=== PATIENT | female | born 1970 | race Caucasian/White ===

== ENCOUNTER 2016-04-10 22:52 | Emergency (ER) | payer MEDICARE, OTHER ==
[2016-04-10 23:05] VITALS: RESP 16; TEMP 97.7
[2016-04-10] MEDS ORDERED: ONDANSETRON 4 MG/2 ML VIAL IVP STA (23:39)
[2016-04-10] MEDS ORDERED: SODIUM CHLORIDE 0.9% 500 ML IV STA (23:39)
[2016-04-10] MEDS ORDERED: KETOROLAC 30 MG/ML 1 ML VIAL IVP STA (23:39)
--- NOTE | 2016-04-10 23:47 | ED ---
Abdominal Pain HPI - General Chief Complaint: Abdominal Pain Stated Complaint: abd pain Time Seen by Provider: 04/10/16 22:55 Source: patient, RN notes reviewed Mode of arrival: ambulatory Limitations: no limitations - History of Present Illness Initial Comments: This patient is a 45-year-old woman who presents with right flank and right lower quadrant pain which is been going on for 2 days. Patient states that it seemed be a little worse yesterday and that over the course of last night she developed some nausea and vomiting. She has had 2 episodes of vomiting. The patient also has had some urinary frequency. MD Complaint: abdominal pain, flank pain -: days(s) Location: RLQ, R flank Radiation: none Migration to: no migration Severity: severe Quality: aching Consistency: constant Improves With: nothing Worsens With: nothing Associated Symptoms: nausea, vomiting - Related Data Home Medications Medication Instructions Recorded Confirmed Ibuprofen [Advil] 400 mg PO Q8HR PRN 04/10/16 04/10/16 QUEtiapine [SEROquel] 50 mg PO HS PRN 04/10/16 04/10/16 oxyCODONE-APAP 10-325MG [Percocet 1 tab PO QID 04/10/16 04/10/16 10-325 mg] Previous Rx's Medication Instructions Recorded Hydrocodone/Acetaminophen [[place] 1 each PO Q6HR PRN #20 tab 04/11/16 5-325] Ondansetron Odt [Zofran ODT] 4 mg PO Q8HR PRN #10 tab 04/11/16 Tamsulosin [Flomax] 0.4 mg PO DAILY #14 cap 04/11/16 Allergies Allergy/AdvReac Type Severity Reaction Status Date / Time codeine Allergy Vomiting Verified 04/10/16 23:11 morphine Allergy Vomiting Verified 04/10/16 23:11 Sulfa (Sulfonamide Allergy WHOLE BODY Verified 04/10/16 23:11 Antibiotics) HURTS gabapentin AdvReac AGGRESSIVE Verified 04/10/16 23:11 pregabalin [From Lyrica] AdvReac FEELS LIKE Verified 04/10/16 23:11 HEAD IS SHAKING Review of Systems ROS Statement: Those systems with pertinent positive or pertinent negative responses have been documented in the HPI. ROS Other: All systems not noted in ROS Statement are negative. Constitutional: Denies: fever, chills, weakness Respiratory: Denies: cough, dyspnea Cardiovascular: Denies: chest pain, palpitations, syncope Gastrointestinal: Reports: abdominal pain, nausea, vomiting. Denies: diarrhea, constipation, melena, hematochezia Genitourinary: Reports: frequency. Denies: dysuria, hematuria, discharge Musculoskeletal: Denies: back pain Skin: Denies: rash Neurological: Denies: headache, weakness, numbness Past Medical History Past Medical History: Fibromyalgia Additional Past Medical History / Comment(s): DJD, ARTHRITIS History of Any Multi-Drug Resistant Organisms: None Reported Past Psychological History: No Psychological Hx Reported Smoking Status: Current every day smoker Past Alcohol Use History: Occasional Past Drug Use History: None Reported General Exam Limitations: no limitations General appearance: alert, in no apparent distress Head exam: Present: atraumatic, normocephalic Eye exam: Present: normal appearance. Absent: scleral icterus, conjunctival injection ENT exam: Present: normal oropharynx Neck exam: Present: normal inspection Respiratory exam: Present: normal lung sounds bilaterally. Absent: respiratory distress, wheezes, rales, rhonchi, stridor Cardiovascular Exam: Present: regular rate, normal rhythm, normal heart sounds. Absent: systolic murmur, diastolic murmur, rubs, gallop GI/Abdominal exam: Present: soft. Absent: distended, tenderness, guarding, rebound Extremities exam: Present: normal inspection, normal capillary refill. Absent: pedal edema, calf tenderness Back exam: Present: normal inspection, CVA tenderness (R). Absent: CVA tenderness (L), muscle spasm, paraspinal tenderness, vertebral tenderness Neurological exam: Present: alert Skin exam: Present: warm, dry, intact, normal color. Absent: rash Course Vital Signs 04/10/16 04/11/16 04/11/16 23:03 00:05 02:01 Temperature 97.7 F Pulse Rate 76 74 78 Respiratory 16 16 16 Rate Blood Pressure 118/69 112/68 124/68 O2 Sat by Pulse 97 96 Oximetry Medical Decision Making - Lab Data Result diagrams: 04/10/16 23:47 04/10/16 23:47 Lab Results 04/10/16 04/10/16 04/10/16 Range/Units 23:47 23:47 23:47 WBC 11.7 H (3.8-10.6) k/uL RBC 4.00 (3.80-5.40) m/uL Hgb 13.0 (11.4-16.0) gm/dL Hct 38.5 (34.0-46.0) % MCV 96.4 (80.0-100.0) fL MCH 32.5 (25.0-35.0) pg MCHC 33.7 (31.0-37.0) g/dL RDW 12.3 (11.5-15.5) % Plt Count 204 (150-450) k/uL Neutrophils % 90 % Lymphocytes % 6 % Monocytes % 3 % Eosinophils % 0 % Basophils % 0 % Neutrophils # 10.6 H (1.3-7.7) k/uL Lymphocytes # 0.7 L (1.0-4.8) k/uL Monocytes # 0.3 (0-1.0) k/uL Eosinophils # 0.0 (0-0.7) k/uL Basophils # 0.0 (0-0.2) k/uL Sodium 136 L (137-145) mmol/L Potassium 4.1 (3.5-5.1) mmol/L Chloride 103 (98-107) mmol/L Carbon Dioxide 25 (22-30) mmol/L Anion Gap 8 mmol/L BUN 13 (7-17) mg/dL Creatinine 0.83 (0.52-1.04) mg/dL Est GFR (MDRD) Af Amer >60 (>60 ml/min/1.73 sqM) Est GFR (MDRD) Non-Af >60 (>60 ml/min/1.73 sqM) Glucose 111 H (74-99) mg/dL Calcium 9.3 (8.4-10.2) mg/dL Total Bilirubin 0.5 (0.2-1.3) mg/dL AST 14 (14-36) U/L ALT 23 (9-52) U/L Alkaline Phosphatase 74 (38-126) U/L Total Protein 6.6 (6.3-8.2) g/dL Albumin 3.8 (3.5-5.0) g/dL Amylase <30 L (30-110) U/L Lipase 31 (23-300) U/L Urine Color Urine Appearance (Clear) Urine pH (5.0-8.0) Ur Specific [place] (1.001-1.035) Urine Protein (Negative) Urine Glucose (UA) (Negative) Urine Ketones (Negative) Urine Blood (Negative) Urine Nitrate (Negative) Urine Bilirubin (Negative) Urine Urobilinogen (<2.0) mg/dL Ur Leukocyte Esterase (Negative) Urine RBC (0-5) /hpf Urine WBC (0-5) /hpf Ur Squamous Epith Cells (0-4) /hpf Urine Bacteria (None) /hpf Hyaline Casts (0-2) /lpf Urine Mucus (None) /hpf Urine HCG, Qual Not Detected (Not Detectd) 04/10/16 Range/Units 23:47 WBC (3.8-10.6) k/uL RBC (3.80-5.40) m/uL Hgb (11.4-16.0) gm/dL Hct (34.0-46.0) % MCV (80.0-100.0) fL MCH (25.0-35.0) pg MCHC (31.0-37.0) g/dL RDW (11.5-15.5) % Plt Count (150-450) k/uL Neutrophils % % Lymphocytes % % Monocytes % % Eosinophils % % Basophils % % Neutrophils # (1.3-7.7) k/uL Lymphocytes # (1.0-4.8) k/uL Monocytes # (0-1.0) k/uL Eosinophils # (0-0.7) k/uL Basophils # (0-0.2) k/uL Sodium (137-145) mmol/L Potassium (3.5-5.1) mmol/L Chloride (98-107) mmol/L Carbon Dioxide (22-30) mmol/L Anion Gap mmol/L BUN (7-17) mg/dL Creatinine (0.52-1.04) mg/dL Est GFR (MDRD) Af Amer (>60 ml/min/1.73 sqM) Est GFR (MDRD) Non-Af (>60 ml/min/1.73 sqM) Glucose (74-99) mg/dL Calcium (8.4-10.2) mg/dL Total Bilirubin (0.2-1.3) mg/dL AST (14-36) U/L ALT (9-52) U/L Alkaline Phosphatase (38-126) U/L Total Protein (6.3-8.2) g/dL Albumin (3.5-5.0) g/dL Amylase (30-110) U/L Lipase (23-300) U/L Urine Color Yellow Urine Appearance Cloudy H (Clear) Urine pH 6.0 (5.0-8.0) Ur Specific [place] 1.023 (1.001-1.035) Urine Protein 1+ H (Negative) Urine Glucose (UA) Negative (Negative) Urine Ketones Trace H (Negative) Urine Blood Moderate H (Negative) Urine Nitrate Negative (Negative) Urine Bilirubin Negative (Negative) Urine Urobilinogen 3.0 (<2.0) mg/dL Ur Leukocyte Esterase Small H (Negative) Urine RBC 90 H (0-5) /hpf Urine WBC 5 (0-5) /hpf Ur Squamous Epith Cells 6 H (0-4) /hpf Urine Bacteria Moderate H (None) /hpf Hyaline Casts 4 H (0-2) /lpf Urine Mucus Moderate H (None) /hpf Urine HCG, Qual (Not Detectd) Disposition Clinical Impression: Calculus of kidney Disposition: HOME SELF-CARE Condition: Good Instructions: Kidney Stones (ED) Prescriptions: Hydrocodone/Acetaminophen [[place] 5-325] 1 each PO Q6HR PRN #20 tab PRN Reason: Pain Ondansetron Odt [Zofran ODT] 4 mg PO Q8HR PRN #10 tab PRN Reason: Nausea Tamsulosin [Flomax] 0.4 mg PO DAILY #14 cap Referrals: None,Stated [Primary Care Provider] - 1-2 days Max Stone MD [STAFF PHYSICIAN] - 1-2 days Amanda Kidd MD [REFERRING] - 1-2 days
[2016-04-11 00:08] LABS: Appearance,Urine Cloudy (Clear); Bacteria,Urine Moderate /hpf; Bilirubin,Urine Negative (Negative); Glucose,Urine (UA) Negative (Negative); Ketones,Urine Trace (Negative); Leukocyte Esterase,Urine Small (Negative); Mucus,Urine Moderate /hpf; Nitrite,Urine Negative (Negative); Particle Count 10337; Protein,Urine 1+ (Negative); RBC,Urine 90 /hpf (0-5); Specific Gravity,Urine 1.023 (1.001-1.035); Squamous Epithelial Cell,Urine 6 /hpf (0-4); UA Billing (MACRO vs. MICRO) MICRO; WBC,Urine 5 /hpf (0-5)
[2016-04-11 00:09] LABS: Basophils % (A) 0 %; CH 32.9; CHCM 34.3; Eosinophils % (A) 0 %; HCT 38.5 % (34.0-46.0); HDW 2.11; Luc # (Auto) 0.04; Luc % (Auto) 0; Lymphocytes # (A) 0.7 k/uL (1.0-4.8); Lymphocytes % (A) 6 %; MCH 32.5 pg (25.0-35.0); MCHC 33.7 g/dL (31.0-37.0); MCV 96.4 fL (80.0-100.0); Mean Platelet Volume 7.2; Monocytes # (A) 0.3 k/uL (0-1.0); Monocytes % (A) 3 %; Neutrophils # (A) 10.6 k/uL (1.3-7.7); Neutrophils % (A) 90 %; RDW 12.3 % (11.5-15.5); WBC 11.7 k/uL (3.8-10.6); WBC (Perox) 12.18
[2016-04-11 00:13] LABS: ALT 23 U/L (9-52); AST 14 U/L (14-36); Alkaline Phosphatase 74 U/L (38-126); Amylase <30 U/L (30-110); Anion Gap 8 mmol/L; Blood Urea Nitrogen 13 mg/dL (7-17); Calcium 9.3 mg/dL (8.4-10.2); Carbon Dioxide 25 mmol/L (22-30); Chloride 103 mmol/L (98-107); Glucose 111 mg/dL (74-99); Non-African American GFR(MDRD) >60 (>60 ml/min/1.73 sqM); Potassium 4.1 mmol/L (3.5-5.1); Sodium 136 mmol/L (137-145); Total Bilirubin 0.5 mg/dL (0.2-1.3); Total Protein 6.6 g/dL (6.3-8.2)
--- NOTE | 2016-04-11 00:17 | CT ---
EXAMINATION TYPE: CT abdomen pelvis wo con DATE OF EXAM: 04/11/2016 12:05 AM COMPARISON: NONE HISTORY: back and abd pain, History of DDD, and ovarian cyst, renal stone protocol CT DLP: 921 mGycm Automated exposure control for dose reduction was used. TECHNIQUE: Helical acquisition of images was performed from the lung bases through the pelvis. FINDINGS: Lung bases are clear. There is no pleural effusion. Heart size is normal. Liver spleen pancreas appear normal. Bile ducts are not dilated. There are clips from cholecystectomy . There is no adrenal mass. There are a few calculi in the upper pole of the left kidney to measure u p to 1 cm. There is mild right-sided hydronephrosis. There is mild right hydroureter. There are multi ple calcifications in the pelvis floor on the right side and probably a stone in the distal right ure ter at the ureterovesical junction. Bladder distends smoothly. There is no sign of a pelvic mass. Kid neys have normal size. There is no retroperitoneal adenopathy. I see no intestinal wall thickening. T here are no dilated loops. There are multiple coils in the pelvis on the right side. Appendix appears normal. I see no bony destructive process. IMPRESSION: NONOBSTRUCTING LEFT RENAL CALCULI. THERE IS RIGHT-SIDED HYDRONEPHROSIS AND HYDROURETER AND PROBABLY A 5 MM STONE AT THE RIGHT URETEROVES ICAL JUNCTION. NORMAL APPENDIX.
[2016-04-11] MEDS ORDERED: TAMSULOSIN 0.4 MG CAP.ER.24H PO STA (01:26)
[2016-04-11] MEDS ORDERED: HYDROmorphone 1 MG/ML 1 ML SYRINGE IVP STA (01:38)
[2016-04-11 02:02] VITALS: BP 124/68; PULSE 78
== END 2016-04-11 02:02 | disposition home or self-care (01) ==
LOC: EC 22:52
DX: N13.2 Hydronephrosis with renal and ureteral calculous obstruction (principal); M79.7 Fibromyalgia; Z79.891 Long term (current) use of opiate analgesic; F17.200 Nicotine dependence, unspecified, uncomplicated; Z88.5 Allergy status to narcotic agent; Z88.2 Allergy status to sulfonamides; Z88.8 Allergy status to other drugs, medicaments and biological substances
CPT/HCPCS: 36415; 80053; 82150; 83690; 85025; 81001; 81025; 87086; 74176; 99285; 96374; 96375; 96361; J2405; J1885; J1170

== ENCOUNTER 2016-05-26 17:13 | Emergency (ER) | payer MEDICARE, OTHER ==
[2016-05-26] MEDS ORDERED: KETOROLAC 30 MG/ML 1 ML VIAL IVP STA (17:35)
[2016-05-26] MEDS ORDERED: MORPHINE SULFATE 4 MG/ML SYRINGE IVP STA (17:35)
[2016-05-26] MEDS ORDERED: SODIUM CHLORIDE 0.9% 1,000 ML IV ONE (17:35)
[2016-05-26] MEDS ORDERED: RX INFO: IV CONTRAST WAS GIVEN 1 EACH MISC MISCELLANE PRN (17:35)
[2016-05-26] MEDS ORDERED: ONDANSETRON 4 MG/2 ML VIAL IVP STA (17:35)
[2016-05-26 18:05] LABS: Appearance,Urine Cloudy (Clear); Bacteria,Urine Occasional /hpf; Bilirubin,Urine 1+ (Negative); Glucose,Urine (UA) Negative (Negative); Ketones,Urine 2+ (Negative); Leukocyte Esterase,Urine Negative (Negative); Mucus,Urine Many /hpf; Nitrite,Urine Negative (Negative); Particle Count 21064; Protein,Urine 1+ (Negative); RBC,Urine 3 /hpf (0-5); Specific Gravity,Urine 1.031 (1.001-1.035); Squamous Epithelial Cell,Urine 3 /hpf (0-4); UA Billing (MACRO vs. MICRO) MICRO; WBC,Urine 1 /hpf (0-5)
[2016-05-26 18:13] LABS: Basophils % (A) 0 %; CH 32.4; CHCM 34.2; Eosinophils # (A) 0.1 k/uL (0-0.7); Eosinophils % (A) 1 %; HCT 42.3 % (34.0-46.0); HGB 14.3 gm/dL (11.4-16.0); Luc # (Auto) 0.13; Luc % (Auto) 1; Lymphocytes # (A) 1.5 k/uL (1.0-4.8); Lymphocytes % (A) 12 %; MCH 32.2 pg (25.0-35.0); MCHC 33.9 g/dL (31.0-37.0); Mean Platelet Volume 7.2; Monocytes # (A) 0.5 k/uL (0-1.0); Monocytes % (A) 4 %; Neutrophils # (A) 9.8 k/uL (1.3-7.7); Neutrophils % (A) 81 %; RBC 4.45 m/uL (3.80-5.40); RDW 12.3 % (11.5-15.5); WBC 12.1 k/uL (3.8-10.6); WBC (Perox) 12.17
[2016-05-26 18:23] LABS: HCG,Qualitative Serum Not Detected
[2016-05-26 18:25] LABS: ALT 16 U/L (9-52); AST 13 U/L (14-36); Alkaline Phosphatase 89 U/L (38-126); Anion Gap 12 mmol/L; Blood Urea Nitrogen 11 mg/dL (7-17); Calcium 9.4 mg/dL (8.4-10.2); Carbon Dioxide 25 mmol/L (22-30); Chloride 103 mmol/L (98-107); Glucose 92 mg/dL (74-99); Non-African American GFR(MDRD) >60 (>60 ml/min/1.73 sqM); Potassium 3.6 mmol/L (3.5-5.1); Sodium 140 mmol/L (137-145); Total Bilirubin 1.1 mg/dL (0.2-1.3); Total Protein 7.1 g/dL (6.3-8.2)
--- NOTE | 2016-05-26 19:15 | ED ---
General Adult HPI - General Chief complaint: Abdominal Pain Stated complaint: abd pain Time Seen by Provider: 05/26/16 17:24 Source: patient, EMS Mode of arrival: EMS Limitations: no limitations - History of Present Illness Initial comments: 45-year-old female with past medical history of kidney stones and/or vasculitis presented for evaluation of left lower quadrant abdominal pain that started over the last couple days. She states that she's had 2 weeks of constipation and hasn't passed a single bowel movement in this time. She states that she has no back pain or tenderness that is similar to the Rogelio stones and this feels like a bout of acute diverticulitis. She is unable to get into her primary care physician for further evaluation and was more concerned about this bout as she usually has diarrhea with her symptoms. There is some associated nausea but she denies any fevers chills chest pain shortness of breath. She further denies any dysuria, vaginal bleeding/discharge. - Related Data Home Medications Medication Instructions Recorded Confirmed oxyCODONE-APAP 10-325MG [Percocet 1 tab PO QID 04/10/16 05/26/16 10-325 mg] Albuterol Inhaler [Ventolin Hfa 1 - 2 puff INHALATION RT-QID PRN 05/26/16 Inhaler] Cetirizine HCl [Zyrtec] 10 mg PO DAILY 05/26/16 05/26/16 Fluticasone Nasal [place] [Flonase 1 - 2 spr EA NOSTRIL DAILY PRN 05/26/16 Nasal [place]] clonazePAM [KlonoPIN] 1 mg PO BID 05/26/16 05/26/16 Previous Rx's Medication Instructions Recorded Ondansetron Odt [Zofran ODT] 4 mg PO Q8HR PRN #10 tab 04/11/16 Ciprofloxacin HCl [Cipro] 500 mg PO Q12HR #20 tablet 05/26/16 Ibuprofen [Motrin] 800 mg PO Q8HR PRN #20 tab 05/26/16 Polyethylene Glycol 3350 [Miralax] 17 gm PO DAILY #527 gm 05/26/16 metroNIDAZOLE [Flagyl] 500 mg PO Q8HR #30 tab 05/26/16 Allergies Allergy/AdvReac Type Severity Reaction Status Date / Time codeine Allergy Vomiting Verified 05/26/16 17:48 morphine Allergy Vomiting Verified 05/26/16 17:48 Sulfa (Sulfonamide Allergy WHOLE BODY Verified 05/26/16 17:48 Antibiotics) HURTS gabapentin AdvReac AGGRESSIVE Verified 05/26/16 17:48 pregabalin [From Lyrica] AdvReac FEELS LIKE Verified 05/26/16 17:48 HEAD IS SHAKING Review of Systems ROS Statement: Those systems with pertinent positive or pertinent negative responses have been documented in the HPI. ROS Other: All systems not noted in ROS Statement are negative. Constitutional: Denies: fever, chills Eyes: Denies: eye pain, eye discharge ENT: Denies: ear pain, throat pain Respiratory: Denies: cough, dyspnea Cardiovascular: Denies: chest pain, palpitations Endocrine: Denies: fatigue, polydipsia, polyuria Gastrointestinal: Reports: abdominal pain, nausea, vomiting, constipation. Denies: diarrhea Genitourinary: Denies: urgency, dysuria Musculoskeletal: Denies: back pain, joint swelling Skin: Denies: rash, lesions Neurological: Denies: headache, weakness Psychiatric: Denies: anxiety, depression Past Medical History Past Medical History: Fibromyalgia Additional Past Medical History / Comment(s): DJD, ARTHRITIS History of Any Multi-Drug Resistant Organisms: None Reported Past Surgical History: Back Surgery, Hernia Repair, Tonsillectomy Additional Past Surgical History / Comment(s): carpel tunnel Past Psychological History: No Psychological Hx Reported Smoking Status: Current every day smoker Past Alcohol Use History: Occasional Past Drug Use History: Marijuana General Exam Limitations: no limitations General appearance: alert, in distress Head exam: Present: atraumatic, normocephalic, normal inspection Eye exam: Present: normal appearance, PERRL, EOMI. Absent: scleral icterus, conjunctival injection, periorbital swelling ENT exam: Present: normal exam, mucous membranes moist Neck exam: Present: normal inspection. Absent: tenderness, meningismus, lymphadenopathy Respiratory exam: Present: normal lung sounds bilaterally. Absent: respiratory distress, wheezes, rales, rhonchi, stridor Cardiovascular Exam: Present: regular rate, normal rhythm, normal heart sounds. Absent: systolic murmur, diastolic murmur, rubs, gallop, clicks GI/Abdominal exam: Present: soft, tenderness, normal bowel sounds. Absent: distended, guarding, rebound, rigid, diminished bowel sounds Rectal exam: Present: deferred Extremities exam: Present: normal inspection, full ROM Back exam: Present: normal inspection, full ROM Neurological exam: Present: alert, oriented X3, CN II-XII intact, normal gait. Absent: altered Psychiatric exam: Present: normal affect, normal mood Skin exam: Present: warm, dry, intact Course Vital Signs 05/26/16 17:17 Temperature 98.0 F Pulse Rate 96 Respiratory 18 Rate Blood Pressure 133/77 O2 Sat by Pulse 99 Oximetry EKG Findings - EKG Comments: EKG Findings:: Normal sinus rhythm with ventricular rate of 80, KHOI 128, QRS 86 , QTC 449. Medical Decision Making - Medical Decision Making 45-year-old female with past medical history of kidney stones and diverticulitis presenting for evaluation of left lower quadrant abdominal pain without radiation that is similar previous episodes of diverticulitis. She states only change in her symptoms from previous is that she is constipated for the last 2 weeks. On physical examination she does look mildly distressed and has tenderness to palpation in the left lower quadrant. Bowel sounds are present throughout all quadrants. Concern for acute diverticulitis versus constipation versus bowel traction. We'll obtain CT abdomen, labs, urine, and provide IV fluids, pain control, and Zofran. Labs revealed a mild leukocytosis but otherwise there were no significant abnormalities. CT abdomen with IV contrast: There is mild wall thickening in the lower descending colon and sigmoid colon that could relate to mild colitis. No acute process. No evidence of renal obstruction although there are nonobstructive calculus in the upper pole of the left kidney. There is clearing of the obstructing calculus and hydronephrosis on the right side compared to old exam. Patient was reevaluated and found sleeping in bed. Patient was woken up and she said she had marked improvement in her symptoms. She is informed that she would be discharged with instructions to follow-up with her primary care physician as well as prescriptions for pain control, Zofran control, and MiraLAX to produce stool. She was advised to follow-up with her primary care physician but to return to this facility if her symptoms should worsen or persist. The patient acknowledged an understanding of this information and agreed with this plan of care. - Lab Data Result diagrams: 05/26/16 17:55 05/26/16 17:55 Lab Results 05/26/16 05/26/16 05/26/16 Range/Units 17:40 17:55 17:55 WBC 12.1 H (3.8-10.6) k/uL RBC 4.45 (3.80-5.40) m/uL Hgb 14.3 (11.4-16.0) gm/dL Hct 42.3 (34.0-46.0) % MCV 95.0 (80.0-100.0) fL MCH 32.2 (25.0-35.0) pg MCHC 33.9 (31.0-37.0) g/dL RDW 12.3 (11.5-15.5) % Plt Count 273 (150-450) k/uL Neutrophils % 81 % Lymphocytes % 12 % Monocytes % 4 % Eosinophils % 1 % Basophils % 0 % Neutrophils # 9.8 H (1.3-7.7) k/uL Lymphocytes # 1.5 (1.0-4.8) k/uL Monocytes # 0.5 (0-1.0) k/uL Eosinophils # 0.1 (0-0.7) k/uL Basophils # 0.0 (0-0.2) k/uL Sodium 140 (137-145) mmol/L Potassium 3.6 (3.5-5.1) mmol/L Chloride 103 (98-107) mmol/L Carbon Dioxide 25 (22-30) mmol/L Anion Gap 12 mmol/L BUN 11 (7-17) mg/dL Creatinine 0.75 (0.52-1.04) mg/dL Est GFR (MDRD) Af Amer >60 (>60 ml/min/1.73 sqM) Est GFR (MDRD) Non-Af >60 (>60 ml/min/1.73 sqM) Glucose 92 (74-99) mg/dL Plasma Lactic Acid Mehrdad (0.7-2.0) mmol/L Calcium 9.4 (8.4-10.2) mg/dL Total Bilirubin 1.1 (0.2-1.3) mg/dL AST 13 L (14-36) U/L ALT 16 (9-52) U/L Alkaline Phosphatase 89 (38-126) U/L Total Protein 7.1 (6.3-8.2) g/dL Albumin 4.0 (3.5-5.0) g/dL Lipase 46 (23-300) U/L HCG, Qual Not Detected Urine Color Dark Brown Urine Appearance Cloudy H (Clear) Urine pH 6.0 (5.0-8.0) Ur Specific [place] 1.031 (1.001-1.035) Urine Protein 1+ H (Negative) Urine Glucose (UA) Negative (Negative) Urine Ketones 2+ H (Negative) Urine Blood Small H (Negative) Urine Nitrite Negative (Negative) Urine Bilirubin 1+ H (Negative) Urine Urobilinogen 6.0 (<2.0) mg/dL Ur Leukocyte Esterase Negative (Negative) Urine RBC 3 (0-5) /hpf Urine WBC 1 (0-5) /hpf Ur Squamous Epith Cells 3 (0-4) /hpf Urine Bacteria Occasional H (None) /hpf Urine Mucus Many H (None) /hpf 05/26/16 Range/Units 17:55 WBC (3.8-10.6) k/uL RBC (3.80-5.40) m/uL Hgb (11.4-16.0) gm/dL Hct (34.0-46.0) % MCV (80.0-100.0) fL MCH (25.0-35.0) pg MCHC (31.0-37.0) g/dL RDW (11.5-15.5) % Plt Count (150-450) k/uL Neutrophils % % Lymphocytes % % Monocytes % % Eosinophils % % Basophils % % Neutrophils # (1.3-7.7) k/uL Lymphocytes # (1.0-4.8) k/uL Monocytes # (0-1.0) k/uL Eosinophils # (0-0.7) k/uL Basophils # (0-0.2) k/uL Sodium (137-145) mmol/L Potassium (3.5-5.1) mmol/L Chloride (98-107) mmol/L Carbon Dioxide (22-30) mmol/L Anion Gap mmol/L BUN (7-17) mg/dL Creatinine (0.52-1.04) mg/dL Est GFR (MDRD) Af Amer (>60 ml/min/1.73 sqM) Est GFR (MDRD) Non-Af (>60 ml/min/1.73 sqM) Glucose (74-99) mg/dL Plasma Lactic Acid Mehrdad 1.0 (0.7-2.0) mmol/L Calcium (8.4-10.2) mg/dL Total Bilirubin (0.2-1.3) mg/dL AST (14-36) U/L ALT (9-52) U/L Alkaline Phosphatase (38-126) U/L Total Protein (6.3-8.2) g/dL Albumin (3.5-5.0) g/dL Lipase (23-300) U/L HCG, Qual Urine Color Urine Appearance (Clear) Urine pH (5.0-8.0) Ur Specific [place] (1.001-1.035) Urine Protein (Negative) Urine Glucose (UA) (Negative) Urine Ketones (Negative) Urine Blood (Negative) Urine Nitrite (Negative) Urine Bilirubin (Negative) Urine Urobilinogen (<2.0) mg/dL Ur Leukocyte Esterase (Negative) Urine RBC (0-5) /hpf Urine WBC (0-5) /hpf Ur Squamous Epith Cells (0-4) /hpf Urine Bacteria (None) /hpf Urine Mucus (None) /hpf Disposition Clinical Impression: Colitis, acute, Nausea and vomiting Disposition: HOME SELF-CARE Condition: Stable Instructions: Diverticulitis (ED), Colitis (ED) Additional Instructions: Please use medication as discussed. Please follow up with family doctor if symptoms have not improved over the next two days. Please return to the emergency room if your symptoms increase or worsen or for any other concerns. Prescriptions: Ciprofloxacin HCl [Cipro] 500 mg PO Q12HR #20 tablet Ibuprofen [Motrin] 800 mg PO Q8HR PRN #20 tab PRN Reason: Analgesia Polyethylene Glycol 3350 [Miralax] 17 gm PO DAILY #527 gm metroNIDAZOLE [Flagyl] 500 mg PO Q8HR #30 tab Referrals: Brendan Ledezma MD [Primary Care Provider] - 1-2 days Time of Disposition: 19:28
--- NOTE | 2016-05-26 19:18 | CT ---
EXAMINATION TYPE: CT abdomen pelvis w con DATE OF EXAM: 05/26/2016 6:52 PM COMPARISON: 04/10/2016 HISTORY: Patient complains of generalized abdominal pain, nausea, vomiting, constipation, and diarrhe a x2 weeks. CT DLP: 434 mGycm Automated exposure control for dose reduction was used. TECHNIQUE: Helical acquisition of images was performed from the lung bases through the pelvis. CONTRAST: Performed without Oral Contrast and with IV Contrast, patient injected with 100 mL of Omnipaque 300. FINDINGS: Lung bases are clear. There is no pleural effusion. Heart size is normal. Liver spleen pancreas appear normal. There are clips from cholecystectomy. Bile ducts are not dilated . There is no adrenal mass. There is a 2 cm calcification in the upper pole left kidney. There is no hydronephrosis. There is no retroperitoneal adenopathy. There is no ascites. There are some hypertrophic changes in the sigmoid colon. There is no free air. There is no ascites. Bladder is almost empty. There is no pelvic mass. There are multiple coils appar ently from hernia surgery on the right side. Appendix is not seen. There is no sign of appendicitis. Bony structures are intact. IMPRESSION: THERE IS MILD WALL THICKENING IN THE LOWER DESCENDING COLON AND SIGMOID COLON THAT COULD RELATE TO ND LD COLITIS. NO AB PROCESS. NO EVIDENCE OF RENAL OBSTRUCTION. NONOBSTRUCTING CALCULUS IN THE UPPER HEMANT E LEFT KIDNEY. THERE IS CLEARING OF THE OBSTRUCTING CALCULUS AND HYDRONEPHROSIS ON THE RIGHT SIDE COM PARED TO OLD EXAM. Changes in the right colon appear new compared to last exam.
[2016-05-26] MEDS ORDERED: ONDANSETRON 4 MG ODT STARTER PACK 2 TAB BTL PO STA (19:25)
[2016-05-26] MEDS ORDERED: HYDROmorphone 1 MG/ML 1 ML SYRINGE IVP STA (19:34)
[2016-05-26 19:52] VITALS: BP 104/49; PULSE 78; RESP 16; TEMP 97.7
== END 2016-05-26 19:52 | disposition home or self-care (01) ==
LOC: EC 17:13
DX: K52.9 Noninfective gastroenteritis and colitis, unspecified (principal); R11.2 Nausea with vomiting, unspecified; M79.7 Fibromyalgia; M19.90 Unspecified osteoarthritis, unspecified site; F17.200 Nicotine dependence, unspecified, uncomplicated; Z79.899 Other long term (current) drug therapy; Z88.5 Allergy status to narcotic agent; Z88.2 Allergy status to sulfonamides; Z88.8 Allergy status to other drugs, medicaments and biological substances
CPT/HCPCS: 36415; 93005; 80053; 83605; 83690; 85025; 81001; 84703; 74177; 99285; 96374; 96375 ×4; 96376 ×2; 96361 ×2; J2405; J1885; J1170; Q9967; S0119

== ENCOUNTER 2016-06-01 10:00 | Inpatient (IN) | payer MEDICARE, OTHER ==
[2016-06-01] MEDS ORDERED: NALOXONE 0.4 MG/ML 1 ML VIAL IV PRN (10:49)
--- NOTE | 2016-06-01 10:54 | ED ---
Abdominal Pain HPI - General Source: patient, RN notes reviewed Mode of arrival: ambulatory Limitations: no limitations <Tank Roger - Last Filed: 06/01/16 10:51> <Smith Leonard - Last Filed: 06/01/16 11:44> - General Chief Complaint: Abdominal Pain Stated Complaint: constipation Time Seen by Provider: 06/01/16 10:20 - History of Present Illness Initial Comments: 45-year-old female presents emergency department for abdominal pain constipation. Patient states she was seeing another day diagnosed with constipation was given some medications. Patient states that she's had minimal output. Patient did follow-up with Dr. Santo who saw her on Saturday. She was advised to come back to emergency department or contact her if symptoms worsen. Patient states she is here for admission. She has generalized abdominal pain. Patient states she has been on pain medication for several years. Patient states that she was supposed come to the ER for an was. Patient denies fever, chills. Patient offers no other complaints. (Tank Roger) - Related Data Home Medications Medication Instructions Recorded Confirmed oxyCODONE-APAP 10-325MG [Percocet 1 tab PO QID 04/10/16 06/01/16 10-325 mg] Albuterol Inhaler [Ventolin Hfa 1 - 2 puff INHALATION RT-QID PRN 05/26/16 Inhaler] Cetirizine HCl [Zyrtec] 10 mg PO DAILY 05/26/16 06/01/16 Fluticasone Nasal [place] [Flonase 1 - 2 spr EA NOSTRIL DAILY PRN 05/26/16 Nasal [place]] clonazePAM [KlonoPIN] 1 mg PO HS 05/26/16 06/01/16 Previous Rx's Medication Instructions Recorded Ciprofloxacin HCl [Cipro] 500 mg PO Q12HR #20 tablet 05/26/16 metroNIDAZOLE [Flagyl] 500 mg PO Q8HR #30 tab 05/26/16 Allergies Allergy/AdvReac Type Severity Reaction Status Date / Time codeine Allergy Vomiting Verified 06/01/16 10:57 morphine Allergy Vomiting Verified 06/01/16 10:57 Sulfa (Sulfonamide Allergy WHOLE BODY Verified 06/01/16 10:57 Antibiotics) HURTS gabapentin AdvReac AGGRESSIVE Verified 06/01/16 10:57 pregabalin [From Lyrica] AdvReac FEELS LIKE Verified 06/01/16 10:57 HEAD IS SHAKING Review of Systems ROS Other: All systems not noted in ROS Statement are negative. <Tank Roger - Last Filed: 06/01/16 10:51> ROS Other: All systems not noted in ROS Statement are negative. <Smith Leonard - Last Filed: 06/01/16 11:44> ROS Statement: Those systems with pertinent positive or pertinent negative responses have been documented in the HPI. Past Medical History Past Medical History: Fibromyalgia Additional Past Medical History / Comment(s): DJD, ARTHRITIS History of Any Multi-Drug Resistant Organisms: None Reported Past Surgical History: Back Surgery, Hernia Repair, Tonsillectomy Additional Past Surgical History / Comment(s): carpel tunnel Past Psychological History: No Psychological Hx Reported Smoking Status: Current every day smoker Past Alcohol Use History: Occasional Past Drug Use History: Marijuana <Tank Roger - Last Filed: 06/01/16 10:51> General Exam Limitations: no limitations General appearance: alert, in no apparent distress Head exam: Present: atraumatic, normocephalic, normal inspection Respiratory exam: Present: normal lung sounds bilaterally. Absent: respiratory distress, wheezes, rales, rhonchi, stridor Cardiovascular Exam: Present: regular rate, normal rhythm, normal heart sounds. Absent: systolic murmur, diastolic murmur, rubs, gallop, clicks GI/Abdominal exam: Present: soft, tenderness (Generalized mild), normal bowel sounds. Absent: distended, guarding, rebound, rigid Back exam: Absent: CVA tenderness (R), CVA tenderness (L) <Tank Roger - Last Filed: 06/01/16 10:51> Course <Tank Roger - Last Filed: 06/01/16 10:51> <Smith Leonard - Last Filed: 06/01/16 11:44> Vital Signs 06/01/16 06/01/16 10:09 11:24 Temperature 97.0 F L 98.0 F Pulse Rate 70 70 Respiratory 16 18 Rate Blood Pressure 110/59 92/54 O2 Sat by Pulse 98 100 Oximetry - Reevaluation(s) Reevaluation #1: 06/01/16 11:[address] Santo who did just see this patient and requests admission for observation. (Smith Leonard) Medical Decision Making <Tank Roger - Last Filed: 06/01/16 10:51> <Smith Leonard - Last Filed: 06/01/16 11:44> - Medical Decision Making I discuss case with Dr. Contreras. Patient will be admitted for IV fluids, enemas. (Tank Roger) Disposition <Tank Roger - Last Filed: 06/01/16 10:51> <Smith Leonard - Last Filed: 06/01/16 11:44> Clinical Impression: Abdominal pain, Constipation Disposition: ADMITTED IP TO THIS HOSP Condition: Stable
[2016-06-01] MEDS: SODIUM CHLORIDE 0.9% 1,000 ML IV SCH ×2 (11:23→22:16)
[2016-06-01] MEDS ORDERED: LACTULOSE 20 GM/30 ML CUP PO ONE (13:18)
[2016-06-01] MEDS ORDERED: SENNOSIDES 8.6 MG TAB PO PRN (13:19)
[2016-06-01] MEDS ORDERED: POLYETHYLENE GLYCOL 3350 17 GM POWD.PACK PO SCH (13:30)
[2016-06-01] MEDS: FAMOTIDINE 20 MG TAB PO SCH (14:42)
[2016-06-01] MEDS: oxyCODONE-APAP 10-325MG 1 EACH TAB PO SCH ×2 (14:45→22:14)
--- NOTE | 2016-06-01 15:18 | P.GSHP ---
History of Present Illness H&P Date: 06/01/16 45-year-old female patient being seen for abdominal pain suspect due to constipation. Patient was seen in the emergency room on the the patient was being evaluated for constipation. Patient reportedly seen Dr. Price on Saturday this week for eval of constipation. Patient stated that she was told things didn't get better she was to come to the emergency room to be seen. Patient states she has not had a normal bowel movement has generalized abdominal pain. Patient states that she did give herself fleets enema did try using [id number] products for constipation. Patient states she feels like she has not emptied out her bowel and had a satisfactory bowel movement there's been no blood in the stool patient states she's had small stools as a result of giving herself an enema "I feel frustrated and agitated because I don't really know why all this is happening". Did note the patient is on Cipro and Flagyl when questioning the patient states she was started on those in the emergency room was not told why she's taking them. Patient states she's been taking pain medication for several years and has not had a problem with constipation in the past. Patient takes oxycodone 14 times a day states has taken oxycodone for years for lower back pain patient is not certain when she's had a colonoscopy done Patient's past surgical history hernia repair tonsillectomy and back surgery and cholecystectomy Patient did have a CAT scan of the abdomen pelvis with contrast this was done on May 26 it did show mild wall thickening of the lower descending colon and sigmoid could relate to mild colitis no evidence of renal calculi - Review of Systems Comment: Essentially unremarkable except as mentioned in the present illness Past Medical History Past Medical History: Cancer, Fibromyalgia, Osteoarthritis (OA) Additional Past Medical History / Comment(s): cancerous polyps with removal, diverticular dx, cervical/uterine cancer, DJD, ARTHRITIS. History of Any Multi-Drug Resistant Organisms: None Reported Past Surgical History: Back Surgery, Hernia Repair, Hysterectomy, Orthopedic Surgery, Tonsillectomy Additional Past Surgical History / Comment(s): R carpel tunnel release, cervical sx, L/R inguinal hernia repairs, colonoscopy with cancerous polyps removed. Past Anesthesia/Blood Transfusion Reactions: Postoperative Nausea & Vomiting ( PONV) Additional Past Anesthesia/Blood Transfusion Reaction / Comment(s): Pt states she has PONV and she has to get all the pre meds for that including a scop patch. Past Psychological History: No Psychological Hx Reported Additional Psychological History / Comment(s): Pt resides alone. She is independent. She drives. Smoking Status: Current every day smoker Past Alcohol Use History: Occasional Additional Past Alcohol Use History / Comment(s): Pt states she started smoking at age 9 yrs. she is 1/2 ppd smoker. Past Drug Use History: Marijuana Additional Drug Use History / Comment(s): Pt states she is an occasional marijuana smoker. - Past Family History Father Additional Family Medical History / Comment(s): Father at the age of 19 yrs from a MVA Mother Family Medical History: Cancer, Hypertension Additional Family Medical History / Comment(s): Mother had cervical/uterine cancer and colon cancer. She also had Hep C. Medications and Allergies Home Medications Medication Instructions Recorded Confirmed Type oxyCODONE-APAP 10-325MG [Percocet 1 tab PO QID 04/10/16 06/01/16 History 10-325 mg] Albuterol Inhaler [Ventolin Hfa 1 - 2 puff INHALATION RT-QID PRN 05/26/16 History Inhaler] Cetirizine HCl [Zyrtec] 10 mg PO DAILY 05/26/16 06/01/16 History Fluticasone Nasal [place] [Flonase 1 - 2 spr EA NOSTRIL DAILY PRN 05/26/16 History Nasal [place]] clonazePAM [KlonoPIN] 1 mg PO HS 05/26/16 06/01/16 History Allergies Allergy/AdvReac Type Severity Reaction Status Date / Time codeine Allergy Vomiting Verified 06/01/16 10:57 morphine Allergy Vomiting Verified 06/01/16 10:57 Sulfa (Sulfonamide Allergy WHOLE BODY Verified 06/01/16 10:57 Antibiotics) HURTS gabapentin AdvReac AGGRESSIVE Verified 06/01/16 10:57 pregabalin [From Lyrica] AdvReac FEELS LIKE Verified 06/01/16 10:57 HEAD IS SHAKING Surgical - Exam Vital Signs Temp Pulse Resp BP Pulse Ox 97.0 F L 70 16 110/59 98 06/01/16 10:09 06/01/16 10:09 06/01/16 10:09 06/01/16 10:09 06/01/16 10:09 GENERAL APPEARANCE: 45-year-old female patient is alert, oriented, in no acute distress. VITAL SIGNS: Reviewed HEENT: Head is normocephalic and atraumatic. Pupils are equal and reactive. The nares are patent. Oropharynx is clear without lesions. NECK: Supple without lymphadenopathy. Traches midline. HEART: S1, S2. Regular rate and rhythm. LUNGS: No crackles or wheezes are heard. ABDOMEN: Soft, flat nontender, nondistended with good bowel sounds. No peritoneal signs. No palpable organomegaly or masses. No facial grimacing with palpitation to the abdominal wall no guarding bowel tones present states is able to tolerate a diet EXTREMITIES: Normal skin color and turgor. No cyanosis, rash, ulceration, clubbing or edema. Radial pedal pulses are 2/4 bilaterally. NEUROLOGICAL: No focal deficits. Strength and sensation are grossly intact. Skin multiple skin tattoos Assessment and Plan Plan: Impression Present on admission abdominal pain suspect due to constipation Chronic constipation suspect due to chronic opiate use CAT scan done on May 26 mild wall thickening in the lower descending colon and sigmoid colon pelvic mass could relate to mild colitis Current every day smoker Plan IV hydration as ordered Present health clear Bowel stimulant program Restart meds as appropriate Further recommendations pending Possible discharge in the next 24 hours The above dictated assessment and findings were discussed with dr Price. Impression and the plan of care have been dictated as directed. Maritza Ng nurse practitioner acting as a scribe for Dee.
--- NOTE | 2016-06-01 20:29 | XR ---
EXAMINATION TYPE: XR KUB DATE OF EXAM: 06/01/2016 7:55 PM COMPARISON: CT May 26, 2016 HISTORY: Pain TECHNIQUE: 2 upright views FINDINGS: The visualized lung bases and pleural spaces are negative. There is no pneumoperitoneum. No pneumatosis. The bowel is not dilated but there are innumerable gas fluid levels, particularly in the right upper and lower quadrants. A small volume of gas is seen with in the colon. The pattern suggests partial small bowel obstruction, mild-plus in degree. Cholecystect darby clips are noted. The skeletal structures and soft tissues are unremarkable as seen. IMPRESSION: FINDINGS SUGGEST MILD-PLUS PARTIAL SMALL BOWEL OBSTRUCTION.
[2016-06-01 20:30] LABS: Basophils # (A) 0.1 k/uL (0-0.2); Basophils % (A) 1 %; CH 32.3; CHCM 33.7; Eosinophils # (A) 0.2 k/uL (0-0.7); Eosinophils % (A) 3 %; HDW 2.38; HGB 13.7 gm/dL (11.4-16.0); Luc # (Auto) 0.16; Luc % (Auto) 2; Lymphocytes # (A) 2.3 k/uL (1.0-4.8); Lymphocytes % (A) 32 %; MCH 32.1 pg (25.0-35.0); MCHC 33.5 g/dL (31.0-37.0); Mean Platelet Volume 7.5; Monocytes # (A) 0.4 k/uL (0-1.0); Monocytes % (A) 6 %; Neutrophils # (A) 4.1 k/uL (1.3-7.7); Neutrophils % (A) 56 %; RBC 4.27 m/uL (3.80-5.40); RDW 12.1 % (11.5-15.5); WBC 7.3 k/uL (3.8-10.6); WBC (Perox) 7.46
[2016-06-01 20:45] LABS: ALT 20 U/L (9-52); AST 18 U/L (14-36); Alkaline Phosphatase 77 U/L (38-126); Amylase 48 U/L (30-110); Anion Gap 11 mmol/L; Blood Urea Nitrogen 7 mg/dL (7-17); Calcium 9.9 mg/dL (8.4-10.2); Carbon Dioxide 27 mmol/L (22-30); Chloride 105 mmol/L (98-107); Glucose 83 mg/dL (74-99); Magnesium 1.9 mg/dL (1.6-2.3); Non-African American GFR(MDRD) >60 (>60 ml/min/1.73 sqM); Potassium 4.2 mmol/L (3.5-5.1); Sodium 143 mmol/L (137-145); Total Bilirubin 0.5 mg/dL (0.2-1.3); Total Protein 7.1 g/dL (6.3-8.2)
[2016-06-01] MEDS ORDERED: clonazePAM 1 MG TAB PO SCH (21:00)
[2016-06-02] MEDS ORDERED: ONDANSETRON 4 MG/2 ML VIAL IVP PRN (00:29)
[2016-06-02] MEDS ORDERED: METOCLOPRAMIDE 5 MG/ML 2 ML VIAL IVP PRN (00:29)
[2016-06-02] MEDS ORDERED: HYDROmorphone 1 MG/ML 1 ML SYRINGE IVP PRN (00:29)
[2016-06-02] MEDS: oxyCODONE-APAP 10-325MG 1 EACH TAB PO SCH (00:37)
[2016-06-02] MEDS: FAMOTIDINE 20 MG TAB PO SCH (00:38)
--- NOTE | 2016-06-02 00:39 | P.PN ---
Subjective Principal diagnosis: Abdominal pain The patient comes in with over a 1 week history of persistent abdominal pain. She had a CT of the abdomen and pelvis 1 week ago demonstrating colitis. She was treated with ciprofloxacin and Flagyl. She also had moderate stool burden. She reports chronic diarrhea for the last several days. She also reports troubles tolerating food. She had been placed on laxatives now with some results of bowel movement however now she reports decreased passage of flatus. She has is completed an abdominal x-ray. She reports hunger. Objective - Vital Signs Vital signs: Vital Signs Temp 97.9 F 06/01/16 19:39 Pulse 69 06/01/16 20:00 Resp 18 06/01/16 20:00 BP 113/80 06/01/16 19:39 Pulse Ox 100 06/01/16 19:39 Intake & Output 06/01/16 06/01/16 06/02/16 06:59 18:59 06:59 Weight 63.6 kg Other: Voiding Method Toilet Toilet - Exam GENERAL: Well developed and in no acute distress. Pleasant. HEENT: No sclera icterus. Extraocular movements grossly intact. Moist buccal mucosa. Head is atraumatic, normocephalic. Hears conversational speech. No nasal drainage. NECK: Supple without lymphadenopathy. No JV distention. CHEST: Non-labored respirations and equal bilateral excursions. CARDIOVASCULAR: Regular rate and rhythm. Palpable 2+ radial pulses. ABDOMEN: Soft, mild distention. Tender along the bilateral lower abdomen. No guarding. MUSCULOSKELETAL: No clubbing, cyanosis or edema. NEUROLOGIC: No focal or lateralizing signs. PSYCH: Appropriate affect. Alert and oriented to person, place and time. - Labs CBC & Chem 7: 06/01/16 20:16 06/01/16 20:16 - Imaging and Cardiology Abdominal x-ray: report reviewed (Multiple air-fluid levels were tender 5 without gas along the rectum consistent with bowel obstruction.), image reviewed Assessment and Plan (1) Small bowel obstruction Status: Acute (2) Diverticulitis large intestine Status: Chronic (3) Chronic pain syndrome Status: Chronic (4) Chronic back pain Status: Chronic (5) Constipation Status: Chronic Plan: 1. Upon review of her abdominal x-ray, she has mechanical small bowel obstruction. 2. Medical and surgical options reviewed in detail including placement of nasogastric tube, completely nothing by mouth status, and surgical intervention. 3. She has elected for surgical intervention given the chronicity of her abdominal pain. 4. Nothing by mouth status at this time. 5. She has requested laparoscopic technique however open technique was also discussed in detail as she has previous history of lower abdominal surgery. 6. Inpatient hospitalization anticipated over 2 nights. 7. DVT prophylaxis. 8. Will obtain full chemistries.
[2016-06-02 06:57] LABS: Basophils % (A) 1 %; CH 32.4; CHCM 34.2; Eosinophils # (A) 0.2 k/uL (0-0.7); Eosinophils % (A) 3 %; HGB 11.2 gm/dL (11.4-16.0); Luc # (Auto) 0.11; Luc % (Auto) 2; Lymphocytes # (A) 1.6 k/uL (1.0-4.8); Lymphocytes % (A) 33 %; MCH 31.5 pg (25.0-35.0); MCV 95.2 fL (80.0-100.0); Mean Platelet Volume 7.6; Monocytes # (A) 0.3 k/uL (0-1.0); Monocytes % (A) 7 %; Neutrophils # (A) 2.6 k/uL (1.3-7.7); Neutrophils % (A) 54 %; RBC 3.57 m/uL (3.80-5.40); RDW 12.2 % (11.5-15.5); WBC 4.9 k/uL (3.8-10.6); WBC (Perox) 5.54
[2016-06-02 07:12] LABS: ALT 23 U/L (9-52); AST 14 U/L (14-36); Alkaline Phosphatase 58 U/L (38-126); Amylase 34 U/L (30-110); Anion Gap 6 mmol/L; Blood Urea Nitrogen 6 mg/dL (7-17); Calcium 8.9 mg/dL (8.4-10.2); Carbon Dioxide 25 mmol/L (22-30); Chloride 111 mmol/L (98-107); Glucose 76 mg/dL (74-99); Magnesium 1.7 mg/dL (1.6-2.3); Non-African American GFR(MDRD) >60 (>60 ml/min/1.73 sqM); Potassium 3.6 mmol/L (3.5-5.1); Sodium 142 mmol/L (137-145); Total Bilirubin 0.3 mg/dL (0.2-1.3); Total Protein 5.3 g/dL (6.3-8.2)
[2016-06-02] MEDS ORDERED: HEPARIN SODIUM,PORCINE 5,000 UNIT/ML 1 ML VIAL SQ SCH (08:00)
[2016-06-02] MEDS: SODIUM CHLORIDE 0.9% 1,000 ML IV SCH (08:38)
[2016-06-02] MEDS ORDERED: PANTOPRAZOLE 40 MG/10 ML VIAL IV SCH (09:00)
[2016-06-02] MEDS ORDERED: LORATADINE 10 MG TAB PO SCH (09:00)
--- NOTE | 2016-06-02 11:24 | XR ---
EXAMINATION TYPE: XR abdomen 2V DATE OF EXAM ORDERED: 06/02/2016 11:18 AM HISTORY: bowel obstruction. COMPARISON: Previous study dated 06/01/2016. FINDINGS: There has been a previous cholecystectomy. There has been a previous anterior abdominal wa ll hernia repair. There are calcifications projecting over the left upper quadrant. These may relate to the kidneys. There is been a reduction in the number of air-fluid levels present. There is no bowel dilatation. Th ere is some gas within the colon. IMPRESSION: IMPROVING SMALL BOWEL OBSTRUCTION.
[2016-06-02 12:32] VITALS: BP 110/74; PULSE 76; RESP 16; TEMP 97.9
[2016-06-02 13:08] VITALS: BMI 21.9
--- NOTE | 2016-06-02 16:10 | P.PN ---
Subjective Principal diagnosis: Abdominal pain The patient is a 45-year-old female who reports over a one-week history of intermittent diarrhea as well as abdominal pain. She was admitted yesterday where abdominal films were consistent with bowel obstruction. She reported no passage of flatus. Prior to that, she was given multiple laxatives whereby she complained of diarrhea without any formed stool. I had a careful discussion with her last night regarding conservative management with a nasogastric tube decompression versus surgical intervention. She had elected for surgical intervention. This morning, she reports now passing flatus including improvement of her abdominal pain. She reports an appetite. Objective - Vital Signs Vital signs: Vital Signs Temp 97.9 F 06/02/16 12:30 Pulse 76 06/02/16 12:30 Resp 16 06/02/16 12:30 BP 110/74 06/02/16 12:30 Pulse Ox 97 06/02/16 12:30 Intake & Output 06/01/16 06/02/16 06/02/16 18:59 06:59 18:59 Intake Total 1200 Output Total 3 3 Balance 1197 -3 Weight 63.6 kg Intake: Intake, IV Titration 1200 Amount Sodium Chloride 0.9% 1, 1200 000 ml @ 100 mls/hr IV . Q10H [facility] Rx#:[id number] Output: Stool 3 3 Other: Voiding Method Toilet # Voids 1 # Bowel Movements 1 - Exam GENERAL: Well developed and in no acute distress. Pleasant. HEENT: No sclera icterus. Extraocular movements grossly intact. Moist buccal mucosa. Head is atraumatic, normocephalic. Hears conversational speech. No nasal drainage. NECK: Supple without lymphadenopathy. No JV distention. CHEST: Non-labored respirations and equal bilateral excursions. CARDIOVASCULAR: Regular rate and rhythm. Palpable 2+ radial pulses. ABDOMEN: Soft, resolved distention. No peritonitis. Moderate decrease of abdominal pain. MUSCULOSKELETAL: No clubbing, cyanosis or edema. NEUROLOGIC: No focal or lateralizing signs. PSYCH: Appropriate affect. Alert and oriented to person, place and time. - Labs CBC & Chem 7: 06/02/16 06:20 06/02/16 06:20 Labs: Abnormal Lab Results - Last 24 Hours (Table) 06/02/16 06/02/16 Range/Units 06:20 06:20 RBC 3.57 L (3.80-5.40) m/uL Hgb 11.2 L (11.4-16.0) gm/dL Chloride 111 H (98-107) mmol/L BUN 6 L (7-17) mg/dL Total Protein 5.3 L (6.3-8.2) g/dL Albumin 2.9 L (3.5-5.0) g/dL - Imaging and Cardiology Abdominal x-ray: report reviewed, image reviewed (Resolution of bowel obstruction) Assessment and Plan (1) Small bowel obstruction Status: Acute (2) Diverticulitis large intestine Status: Chronic (3) Chronic pain syndrome Status: Chronic (4) Chronic back pain Status: Chronic (5) Constipation Status: Chronic Plan: 1. Repeat abdominal film was obtained demonstrating resolution of her bowel obstruction. As a result, her surgery this morning has been canceled. 2. She has been started on soft diet. Should she tolerate diet then discharge home. 3. She will closely follow-up in the office as outpatient.
--- NOTE | 2016-06-02 16:13 | P.DS ---
Providers Date of admission: 06/01/16 21:08 Expected date of discharge: 06/02/16 Attending physician: Meli Price Primary care physician: Brendan Ledezma - Discharge Diagnosis(es) (1) Small bowel obstruction Status: Acute (2) Diverticulitis large intestine Status: Chronic (3) Chronic pain syndrome Status: Chronic (4) Chronic back pain Status: Chronic (5) Constipation Status: Chronic Hospital Course: The patient is a 45-year-old female with prior history of over a weeklong generalized abdominal pain including constipation and recent diagnosis of small bowel obstruction. Nothing by mouth status including conservative management was performed. This morning, she reports starting of passage of flatus. As result, surgical intervention was deferred. She was started on diet. She reported resolution of her abdominal pain and tolerating soft food. Prior to discharge, she was stable. Discharge instructions including follow-up in the office was advised. Pertinent Studies: Abdominal films obtained for review and resolution of bowel obstruction Procedures: None Patient Condition at Discharge: Stable Plan - Discharge Summary Discharge Medication List oxyCODONE-APAP 10-325MG [Percocet 10-325 mg] 1 tab PO QID 04/10/16 [History] Albuterol Inhaler [Ventolin Hfa Inhaler] 1 - 2 puff INHALATION RT-QID PRN [History] Cetirizine HCl [Zyrtec] 10 mg PO DAILY 05/26/16 [History] Ciprofloxacin HCl [Cipro] 500 mg PO Q12HR #20 tablet 05/26/16 [Rx] Fluticasone Nasal [place] [Flonase Nasal [place]] 1 - 2 spr EA NOSTRIL DAILY PRN [History] clonazePAM [KlonoPIN] 1 mg PO HS 05/26/16 [History] metroNIDAZOLE [Flagyl] 500 mg PO Q8HR #30 tab 05/26/16 [Rx] Follow up Appointment(s)/Referral(s): Meli Price MD [STAFF PHYSICIAN] - 06/12/16 Brendan Ledezma MD [Primary Care Provider] - 1-2 days Patient Instructions/Handouts: Bowel Obstruction (DC) Activity/Diet/Wound Care/Special Instructions: As tolerated Discharge Disposition: HOME SELF-CARE
== END 2016-06-02 13:55 | disposition home or self-care (01) | DRG 389 ==
LOC: EC 10:00 → 3OBS 10:50 → OBSVTOIN 21:08 → 3SUR 06-02 11:58
PROVIDERS: ADMIT Surgery Plastic and Reconstructive Surgery; ATTEND Surgery Plastic and Reconstructive Surgery
DX: K56.60 Unspecified intestinal obstruction (principal); K57.32 Diverticulitis of large intestine without perforation or abscess without bleeding; G89.4 Chronic pain syndrome; M54.5 Low back pain; M19.91 Primary osteoarthritis, unspecified site; K59.03 Drug induced constipation; T40.2X5A Adverse effect of other opioids, initial encounter; F12.90 Cannabis use, unspecified, uncomplicated; M79.7 Fibromyalgia; K52.9 Noninfective gastroenteritis and colitis, unspecified; F17.200 Nicotine dependence, unspecified, uncomplicated; Z85.42 Personal history of malignant neoplasm of other parts of uterus; Z79.891 Long term (current) use of opiate analgesic; Y92.009 Unspecified place in unspecified non-institutional (private) residence as the place of occurrence of the external cause
CPT/HCPCS: 74000; 74020; 80053; 81025; 82150; 83690; 83735; 85025; 99285

== ENCOUNTER 2016-07-11 07:49 | Day surgery (SDC) | payer MEDICARE, OTHER ==
[2016-07-09 10:34] VITALS: BMI 23.5
[~2016-07-11 07:49] MED LIST: LACTATED RINGERS 1,000 ML IV SCH; LIDOCAINE 1% 20 ML VIAL (10MG/ML) FOR IV START INTRADERMA PRN
--- NOTE | 2016-07-11 07:54 | P.GSHP ---
History of Present Illness H&P Date: 07/11/16 CHIEF COMPLAINT: GERD and colon screen HISTORY OF PRESENT ILLNESS: The patient is a 45-year-old female who presents reports gastroesophageal reflux disease and need for colon screen for high-risk colon polyps. She has a personal history of high-risk polyps. Her mother had stage III colon cancer at a young age. Upper and lower endoscopy were offered for further evaluation and management. PAST MEDICAL HISTORY: Please see list. PAST SURGICAL HISTORY: Please see list. MEDICATIONS: Please see list. ALLERGIES: Please see list. SOCIAL HISTORY: No illicit drug use FAMILY HISTORY: No reports of Crohn disease or ulcerative colitis. REVIEW OF ORGAN SYSTEMS: CONSTITUTIONAL: No reports of fevers or chills. GI: Denies any blood in stools or constipation. PHYSICAL EXAM: VITAL SIGNS: Stable GENERAL: Well-developed pleasant in no acute distress. HEENT: No scleral icterus. Extraocular movements grossly intact. Moist buccal mucosa. NECK: Supple without lymphadenopathy. CHEST: Unlabored respirations. Equal bilateral excursions. CARDIOVASCULAR: Regular rate and rhythm. Distal 2+ pulses. ABDOMEN: Soft, nondistended. MUSCULOSKELETAL: No clubbing, cyanosis, or edema. ASSESSMENT: 1. Gastroesophageal reflux disease 2. Colon screen. 3. Personal history of high-risk colon polyps. 4. Family history of high-risk colon cancer. PLAN: 1. Recommend proceeding with an upper and lower endoscopy Past Medical History Past Medical History: Asthma, Cancer, COPD, Fibromyalgia, GERD/Reflux, Osteoarthritis (OA) Additional Past Medical History / Comment(s): pre-cancerous polyps with removal , diverticulitis, colitis, cervical/uterine cancer, degenerative disk disease, carpal tunnel, migraines, hypotensive, hiatal hernia, Ox at night 2.5 L, hypoglycemia, anemia, kidney stones History of Any Multi-Drug Resistant Organisms: None Reported Past Surgical History: Back Surgery, Cholecystectomy, Hernia Repair, Hysterectomy, Orthopedic Surgery, Tonsillectomy Additional Past Surgical History / Comment(s): R carpel tunnel release, cervical fusion, colonoscopy with cancerous polyps removed. Past Anesthesia/Blood Transfusion Reactions: Motion Sickness, Postoperative Nausea & Vomiting (PONV) Additional Past Anesthesia/Blood Transfusion Reaction / Comment(s): severe PONV- Past Psychological History: Anxiety Additional Psychological History / Comment(s): . Smoking Status: Current every day smoker Past Alcohol Use History: Occasional Additional Past Alcohol Use History / Comment(s): Pt states she started smoking at age 9 yrs. 1/2 ppd smoker. Past Drug Use History: Marijuana Additional Drug Use History / Comment(s): Pt states she is an occasional marijuana smoker. - Past Family History Father Additional Family Medical History / Comment(s): Father at the age of 19 yrs from a MVA Mother Family Medical History: Cancer Additional Family Medical History / Comment(s): . Medications and Allergies Home Medications Medication Instructions Recorded Confirmed Type oxyCODONE-APAP 10-325MG [Percocet 1 tab PO QID 04/10/16 07/09/16 History 10-325 mg] Albuterol Inhaler [Ventolin Hfa 1 - 2 puff INHALATION QID PRN 05/26/16 07/09/16 History Inhaler] Cetirizine HCl [Zyrtec] 10 mg PO DAILY 05/26/16 07/09/16 History Fluticasone Nasal [place] [Flonase 2 spr EA NOSTRIL DAILY PRN 05/26/16 07/09/16 History Nasal [place]] clonazePAM [KlonoPIN] 1 mg PO HS 05/26/16 07/09/16 History Ascorbic Acid [Vitamin C] 250 mg PO DAILY 07/09/16 07/09/16 History Cholecalciferol [Vitamin D3] 1,000 unit PO DAILY 07/09/16 07/09/16 History Multivitamins, Thera [Multivitamin 1 tab PO DAILY 07/09/16 07/09/16 History (formulary)] Allergies Allergy/AdvReac Type Severity Reaction Status Date / Time Sulfa (Sulfonamide Allergy Severe WHOLE BODY Verified 07/09/16 10:20 Antibiotics) HURTS codeine Allergy Vomiting Verified 06/01/16 10:57 morphine Allergy Vomiting Verified 06/01/16 10:57 gabapentin AdvReac AGGRESSIVE Verified 06/01/16 10:57 pregabalin [From Lyrica] AdvReac FEELS LIKE Verified 06/01/16 10:57 HEAD IS SHAKING
[2016-07-11 08:20] VITALS: RESP 18; TEMP 97.9
[2016-07-11] MEDS ORDERED: LIDOCAINE 1% INJ 10MG/ML (20 ML MDV) ONE (08:24)
[2016-07-11] MEDS ORDERED: PROPOFOL 10 MG/ML 20 ML VIAL IV ONE (08:24)
[2016-07-11] MEDS ORDERED: SCOPOLAMINE 1.5MG/72HR PATCH TRANSDERM ONE (08:25)
[2016-07-11 08:27] LABS: Glucose,Whole Blood 87 mg/dL (75-99)
--- NOTE | 2016-07-11 08:39 | P.PCN ---
Date of Procedure: 07/11/16 Description of Procedure: PREOPERATIVE DIAGNOSIS: Gastroesophageal reflux disease. Epigastric abdominal pain. POSTOPERATIVE DIAGNOSIS: Gastroesophageal reflux disease. Epigastric abdominal pain. Chronic gastritis. Diaphragmatic hiatal hernia. OPERATION: Esophagogastroduodenoscopy with biopsies along antrum. SURGEON: Meli Price MD ANESTHESIA: MAC. INDICATIONS: The patient is a 45-year-old female who presents with a history of epigastric abdominal pain and gastroesophageal reflux disease. Benefits and risks of the procedure were described. Informed consent was obtained. DESCRIPTION: The patient was brought into the endoscopy suite and laid in the left lateral decubitus position. An Olympus gastroscope was passed along the posterior oropharynx down to the distal esophagus where the squamocolumnar junction was encountered at 40 cm from the incisors. The stomach was entered and minimal bile reflux was found. Additional findings are listed below. Biopsies with cold forceps were obtained of the antrum. The first through third portion of the duodenum was examined and unremarkable. Retroflexion of the scope confirmed Hill grade II lower esophageal valve. The squamocolumnar junction demostrated LA grade A erosive esophagitis. The stomach was desufflated. The patient tolerated the procedure well. FINDINGS: Squamocolumnar junction 40 cm from the incisors. Diaphragmatic hiatus at 41 cm from the incisors Hill grade II lower esophageal valve. LA grade A erosive esophagitis. Acute and chronic gastritis along the antrum. No active duodenitis. RECOMMENDATIONS: Continue medical therapy. Further recommendations pending results of pathology report. Upper endoscopy as needed.
--- NOTE | 2016-07-11 09:06 | P.PCN ---
Date of Procedure: 07/11/16 Description of Procedure: PREOPERATIVE DIAGNOSIS: Colonoscopy screening. Personal history of colon polyps. Family history of colon cancer. POSTOPERATIVE DIAGNOSIS: Colonoscopy screening. Personal history of colon polyps. Family history of colon cancer. OPERATION: Colonoscopy to the ileocecal valve and appendiceal orifice. Colonoscopy with snare polypectomy at cecum. SURGEON: Meli Price MD. ANESTHESIA: MAC. INDICATIONS: The patient is a 45-year-old female who presents for colonoscopy screening. She has personal history of high-risk colon polyps including family history of her mother having stage III colon cancer young age. Benefits and risks were described and informed consent was obtained. DESCRIPTION OF PROCEDURE: The patient had undergone Gatorade, MiraLAX and Dulcolax prep. She had been brought into the operating room and laid in the left lateral decubitus position. After adequate intravenous sedation, the rectum was examined with 2% lidocaine jelly. No external hemorrhoids were encountered. The rectal tone was within normal limits. No lesions were palpated in the rectal vault. An Olympus colonoscope was advanced until the ileocecal valve and appendiceal orifice were clearly viewed. Abdominal pressure was required to advance the scope. The prep was good with visualization of the mucosal folds. The scope was removed with visualization of each mucosal fold. No large diverticulosis was encountered. At the cecum, a 5 mm trocar normal snare polypectomy to completion. No evidence of focal colitis was found. Retroflexion of the scope demonstrated grade 1 internal hemorrhoids without active bleeding or inflammation. The colon was desufflated. The patient had tolerated the procedure well. Withdrawal time was over 6 minutes. FINDINGS: Internal hemorrhoids, grade 1 No external prolapse hemorrhoids. No arteriovenous malformations. Removal of cecal polyp, 5 mm, with snare polypectomy. Acute diverticulitis. No focal colitis. RECOMMENDATIONS: Repeat colonoscopy at the age of [age] years old, 2021, for high risk colon polyps and family history of colon cancer. Plan - Discharge Summary Discharge Medication List oxyCODONE-APAP 10-325MG [Percocet 10-325 mg] 1 tab PO QID 04/10/16 [History] Albuterol Inhaler [Ventolin Hfa Inhaler] 1 - 2 puff INHALATION QID PRN 05/26/16 [History] Cetirizine HCl [Zyrtec] 10 mg PO DAILY 05/26/16 [History] Fluticasone Nasal [place] [Flonase Nasal [place]] 2 spr EA NOSTRIL DAILY PRN [History] clonazePAM [KlonoPIN] 1 mg PO HS 05/26/16 [History] Ascorbic Acid [Vitamin C] 250 mg PO DAILY 07/09/16 [History] Cholecalciferol [Vitamin D3] 1,000 unit PO DAILY 07/09/16 [History] Multivitamins, Thera [Multivitamin (formulary)] 1 tab PO DAILY 07/09/16 [History ] Patient Instructions/Handouts: Scopolamine (Absorbed through the skin)
[2016-07-11 09:39] VITALS: BP 113/72; PULSE 74
--- NOTE | 2016-07-16 12:16 | CDI ---
Dear Dr. Price The Procedure Note states that a polypectomy was performed in the cecum. However, there is not documentaion on the pathology report for the polypectomy. Nor is there any other pathology report pending. This is conflicting documentation that needs clarification. Please clarify whether there was a polypectomy performed and the specimen was retrieved. PLEASE DOCUMENT THIS CLARIFICATION AN ADDENDUM TO THE PROCEDURE NOTE. If you have any questions concerning this query, you may contact Deloris Echeverria , Hr Administrative Assistant Saturday thru Saturday from 8:00 am to 6:00 pm at . Thank you for your time, Lluvia Solomon, [facility] Outpatient health center assistant Bernard \ PLEASE LOOK IN SURGERY OPERATIVE NOTE PER NURSING.....INFORMATION CLEARLY STATES THAT SPECIMEN WAS NOT RETRIEVED WELL..... MTDD
== END 2016-07-11 10:02 | disposition home or self-care (01) ==
LOC: ORWHC2ENDO 07:49
PROVIDERS: ATTEND Surgery Plastic and Reconstructive Surgery
DX: Z12.11 Encounter for screening for malignant neoplasm of colon (principal); K29.50 Unspecified chronic gastritis without bleeding; K22.10 Ulcer of esophagus without bleeding; K63.5 Polyp of colon; Z86.010 Personal history of colon polyps; Z80.0 Family history of malignant neoplasm of digestive organs; K64.0 First degree hemorrhoids; J44.9 Chronic obstructive pulmonary disease, unspecified; F17.200 Nicotine dependence, unspecified, uncomplicated; Z79.891 Long term (current) use of opiate analgesic; Z79.899 Other long term (current) drug therapy; Z88.5 Allergy status to narcotic agent; Z88.2 Allergy status to sulfonamides; Z88.8 Allergy status to other drugs, medicaments and biological substances
CPT/HCPCS: 88305; 88342; 45385; 43239; J2001; J2704

== ENCOUNTER → 2022-03-01 | Outpatient (CLI) | payer MEDICARE, OTHER ==
--- NOTE | 2022-03-01 15:59 | CT ---
EXAMINATION TYPE: CT urogram wo/w con CT DLP: 1887.8 mGycm, Automated exposure control for dose reduction was used. DATE OF EXAM: 03/01/2022 3:09 PM COMPARISON: . CT abdomen pelvis most recent from CLINICAL INDICATION:Female, 51 years old with history of R07.81; PHH, Lesion left kidney TECHNIQUE: Urogram with imaging of the abdomen and pelvis. Coronal and sagittal reformats were performed. 2D and 3D reconstructions are performed to assist visualization of the urinary tract on a separate workstat ion. Contrast used:70ml mL of Isovue 300 without and with IV Contrast, Oral contrast used: None. FINDINGS: LOWER CHEST: No significant findings. GENITOURINARY: RIGHT KIDNEY AND URETER: Nonobstructing calculi measuring 5 mm. No hydronephrosis or hydroureter. No renal mass or other lesions. Limited distal right ureter secondary to lack of excreted IV contrast wi th fat said urothelial lesions: no filling defect, dilation, stricture or wall thickening. LEFT KIDNEY AND URETER: Nonobstructing calculi measuring up to 7 mm. Left renal cyst is present with at least two calcifications within this renal cyst in the superior pole. No hydronephrosis or hydrour eter. No renal mass. Limited distal right ureter secondary to lack of excreted IV contrast with fat s aid urothelial lesions: no filling defect, dilation, stricture or wall thickening. URINARY BLADDER: Not optimally distended. Limited evaluation secondary to partial filling of the blad perico with excreted IV contrast. No calculi or obvious mass. REPRODUCTIVE: Unremarkable. ABDOMEN LIVER: Unremarkable. GALLBLADDER AND BILE DUCTS: The gallbladder surgically absent. PANCREAS: Pancreatic tail 1.6 cm cyst. SPLEEN: Unremarkable. ADRENAL GLANDS: Unremarkable. STOMACH AND BOWEL: No evidence of bowel obstruction. PERITONEUM: No evidence of pneumoperitoneum, free fluid, or adenopathy. VASCULATURE: No evidence of aortic aneurysm. Atherosclerosis of the arterial vasculature. MUSCULOSKELETAL: No acute osseous abnormalities, left iliac bone probable bone island. LYMPH NODES: No gross evidence for lymphadenopathy. SOFT TISSUE/ABDOMINAL WALL: Right lower anterior abdominal wall hernia mesh repair changes. IMPRESSION: 1. No evidence of renal/urothelial neoplasm. 2. Bilateral nonobstructing calculi measuring up to 7 mm on the left and 5 mm on the right. On the le ft there are 2 distinct calcifications which are in the cyst in the superior renal pole and may repre sent a calyceal diverticulum with 2 calculi. No solid suspicious mass in the left kidney. 3. Pancreatic tail cyst measuring up to 1.6 cm which could represent sidebranch intraductal papillary mucinous neoplasm.
== END | disposition home or self-care (01) ==
LOC: RADCTMAIN 13:43
PROVIDERS: ATTEND Urology
DX: D41.02 Neoplasm of uncertain behavior of left kidney (principal); N20.0 Calculus of kidney; K86.89 Other specified diseases of pancreas
CPT/HCPCS: 74178; 74400; Q9967

== ENCOUNTER → 2022-05-22 | Outpatient (CLI) | payer MEDICARE, OTHER ==
[2022-05-22 22:55] LABS: Basophils # (A) 0.03 X 10*3/uL (0.00-0.10); Basophils % (A) 0.4 %; Eosinophils # (A) 0.14 X 10*3/uL (0.04-0.35); HCT 40.4 % (37.2-46.3); Immature Grans, Automated 0.4 %; Lymphocytes # (A) 2.17 X 10*3/uL (0.90-5.00); Lymphocytes % (A) 31.6 %; MCH 31.3 pg (27.0-32.0); MCHC 32.2 g/dL (32.0-37.0); MCV 97.1 fL (80.0-97.0); Mean Platelet Volume 10.5 fL (9.5-12.2); Monocytes # (A) 0.51 X 10*3/uL (0.20-1.00); Monocytes % (A) 7.4 %; NRBC Per 100 WBC 0 /100 WBCS (0.0-0.0); Neutrophils # (A) 3.98 X 10*3/uL (1.80-7.70); Neutrophils % (A) 58.2 %; Platelet Count 227 X 10*3/uL (140-440); RBC 4.16 X 10*6/uL (4.10-5.20); RDW 12.8 % (11.5-14.5); WBC 6.86 X 10*3/uL (4.50-10.00)
[2022-05-22 23:27] LABS: African American GFR (CKD) 113.6 (60.0-200.0); Anion Gap 8.6 mmol/L (10.00-18.00); BUN/Creat Ratio 15.46 Ratio (12.00-20.00); Blood Urea Nitrogen 11.1 mg/dL (9.0-27.0); Calcium 9.6 mg/dL (8.7-10.3); Carbon Dioxide 29.5 mmol/L (20.0-27.5); Potassium 4.4 mmol/L (3.5-5.5)
[2022-05-23 00:18] LABS: Appearance,Urine Clear (Clear); Bilirubin,Urine Negative (Negative); Blood,Urine Negative (Negative); Color,Urine Yellow (Yellow); Ketones,Urine Negative (Negative); Nitrite,Urine Negative (Negative); Specific Gravity,Urine 1.016 (1.001-1.030); Urobilinogen,Urine 0.2 (0.2,1.0)
[2022-05-23 00:25] LABS: Bacteria,Urine None Seen /HPF (None Seen)
== END | disposition home or self-care (01) ==
LOC: LABPAT 15:44
PROVIDERS: ATTEND Urology
DX: Z01.812 Encounter for preprocedural laboratory examination (principal); N20.0 Calculus of kidney
CPT/HCPCS: 80048; 81001; 85025; 87086

== ENCOUNTER 2022-05-29 06:14 | Day surgery (SDC) | payer MEDICARE, OTHER ==
--- NOTE | 2022-05-25 10:52 | P.HPIHPCON ---
History of Present Illness H&P Date: 05/25/22 Chief Complaint: Left renal stone This is a 51-year-old female with history of multiple left-sided renal stone, she is symptomatic from her stones. Additionally there is also potential of stone within the calyceal diverticulum. Discussed with her the option of a left-sided ureteroscopy with holmium laser. Discussed with her the risk which includes but not limited to bleeding, infection, injury to the ureter, potential of persistent pain even with stone removal given that there are nonobstructive. Discussed also given that some of the stones are within a calyceal diverticulum the potential and I may not be able to access the stones ureteroscopically. She understood all the risk and agreed to proceed with left-sided ureteroscopy, with holmium laser lithotripsy, stone basketing and stent Consent for Procedure: I have explained the operation/procedure to the patient, including the risks, benefits, side effects, alternative therapies (including not receiving the proposed treatment or service), the likelihood of the patient achieving his/her goals, and potential recuperation problems for the procedure/sedation/analgesia, as well as any blood products, if indicated. I also explained to the patient the risks, benefits and side effects of the alternatives, as well as the risks related to not receiving the proposed procedure, care, treatment, or services. Past Medical History Past Medical History: Asthma, Cancer, COPD, Fibromyalgia, GERD/Reflux, Osteoarthritis (OA) Additional Past Medical History / Comment(s): pre-cancerous polyps with removal, diverticulitis, colitis, cervical/uterine cancer, degenerative disk disease,carpal tunnel, migraines, hypotensive, hiatal hernia, Ox at night 2.5 L, hypoglycemia, anemia, kidney stones History of Any Multi-Drug Resistant Organisms: None Reported Past Surgical History: Back Surgery, Cholecystectomy, Hernia Repair, Hysterectomy, Orthopedic Surgery, Tonsillectomy Additional Past Surgical History / Comment(s): R carpel tunnel release, cervical fusion, colonoscopy with cancerous polyps removed.laminectomy c spine fusion Past Anesthesia/Blood Transfusion Reactions: Motion Sickness, Postoperative Nausea & Vomiting (PONV) Additional Past Anesthesia/Blood Transfusion Reaction / Comment(s): severe PONV- Smoking Status: Current some day smoker - Past Family History Mother Family Medical History: Cancer Additional Family Medical History / Comment(s): . Medications and Allergies Home Medications Medication Instructions Recorded Confirmed Type Ascorbic Acid [Vitamin C] 250 mg PO DAILY 07/09/16 04/12/22 History Cholecalciferol [Vitamin D3] 1,000 unit PO DAILY 07/09/16 04/12/22 History Cyanocobalamin [Vitamin B-12] 1 tab PO DAILY 04/12/22 04/12/22 History Lansoprazole [Prevacid] 20 mg PO HS 04/12/22 04/12/22 History Magnesium 1 tab PO DAILY 04/12/22 04/12/22 History Mirtazapine 30 mg PO HS 04/12/22 04/12/22 History Montelukast [Singulair] 10 mg PO HS 04/12/22 04/12/22 History Multivitamins, Thera [Multivitamin 1 tab PO DAILY 04/12/22 04/12/22 History (formulary)] OXcarbazepine [Trileptal] 600 mg PO BID 04/12/22 04/12/22 History Pravastatin Sodium [Pravachol] 20 mg PO HS 04/12/22 04/12/22 History oxyCODONE HCL [oxyCODONE HCL (IR)] 20 mg PO QID PRN 04/12/22 04/12/22 History Allergies Allergy/AdvReac Type Severity Reaction Status Date / Time Sulfa (Sulfonamide Allergy Severe WHOLE BODY Verified 04/12/22 12:25 Antibiotics) HURTS codeine Allergy Vomiting Verified 04/12/22 12:25 morphine Allergy Vomiting Verified 04/12/22 12:25 adhesive tape AdvReac Rash/Hives Verified 04/12/22 12:25 gabapentin AdvReac AGGRESSIVE Verified 04/12/22 12:25 pregabalin [From Lyrica] AdvReac FEELS LIKE Verified 04/12/22 12:25 HEAD IS SHAKING Surgical - Exam - General no distress, moderate pain - ENT normal nares, normal mucosa - Respiratory normal expansion, normal respiratory effort - Abdomen Abdomen: soft, non tender Assessment and Plan Assessment: OR for left-sided ureteroscopy, holmium laser lithotripsy, stone basketing and stent insertion
[2022-05-29] MEDS ORDERED: ONDANSETRON 4 MG/2 ML VIAL IVP ONE (06:24)
[2022-05-29] MEDS ORDERED: DEXAMETHASONE SOD PHOSPHATE 4 MG/ML 1 ML VIAL IV ONE (06:24)
[2022-05-29] MEDS ORDERED: LACTATED RINGERS 1,000 ML IV SCH (06:24)
[2022-05-29] MEDS ORDERED: LACTATED RINGERS 1,000 ML IV ONE (06:44)
--- NOTE | 2022-05-29 06:59 | XR ---
EXAMINATION TYPE: XR KUB DATE OF EXAM: 05/29/2022 6:26 AM CLINICAL HISTORY: Left-sided kidney stone. TECHNIQUE: Single supine KUB image of the abdomen is obtained. COMPARISON: CT urogram March 01, 2022. FINDINGS: Approximately 6 scattered left renal calculi measuring up to 10 mm in size are redemonstrat ed . Approximately 2-3 small right renal calculi measuring up to 3 mm in size are redemonstrated. Overall nonobstructive bowel gas pattern. Cholecystectomy clips are redemonstrated. Coils from ventra l wall hernia repair surgery right pelvic region are redemonstrated there are a few scattered tiny in ferior bilateral pelvic phleboliths and left pelvic vascular calcification. Osseous structures are in tact. IMPRESSION: Bilateral nephrolithiasis redemonstrated as detailed above.
[2022-05-29] MEDS ORDERED: HYDROmorphone 0.5 MG/0.5 ML SYRINGE IVP PRN (07:00)
[2022-05-29 07:06] LABS: Glucose,Whole Blood 91 mg/dL (70-110)
[2022-05-29] MEDS ORDERED: SCOPOLAMINE 1 MG/72 HR PATCH TRANSDERM ONE (07:08)
[2022-05-29] MEDS ORDERED: SUCCINYLCHOLINE CHLORIDE 200 MG/10 ML VIAL IV ONE (07:35)
[2022-05-29] MEDS ORDERED: LIDOCAINE 2% INJ 20 MG/ML (2 ML VIAL) ONE (07:35)
[2022-05-29] MEDS ORDERED: fentaNYL (PF) 50 MCG/ML 2 ML AMP ONE (07:35)
[2022-05-29] MEDS ORDERED: PROPOFOL 10 MG/ML 20 ML VIAL IV ONE (07:35)
[2022-05-29 08:44] VITALS: TEMP 96.9
--- NOTE | 2022-05-29 08:47 | FL ---
EXAMINATION TYPE: FL guidance operating room DATE OF EXAM: 05/29/2022 CLINICAL HISTORY: Left-sided kidney stone. TECHNIQUE: Fluoroscopy. COMPARISON: None. FINDINGS: Fluoroscopic guidance was provided during cystoscopy with lithotripsy procedure performed by Dr. Vital. A total of 4 seconds of fluoroscopic time was utilized during the procedure and 1 spo t images was acquired. Minute shows catheter advancement to the left pelvis Total DAP 0.2974 Gy x cm 2. IMPRESSION: As Above.
[2022-05-29 08:52] VITALS: RESP 16
--- NOTE | 2022-05-29 08:59 | P.OP ---
Date of Procedure: 05/29/22 Preoperative Diagnosis: left renal stone Postoperative Diagnosis: same Procedure(s) Performed: cystoscopy, left ureteroscopy, holmium laser lithotripsy stone basketting Implants: none Anesthesia: ROOPAA Surgeon: Gibson Pedraza Estimated Blood Loss (ml): 5 Pathology: other (left renal stone) Condition: stable Disposition: PACU Indications for Procedure: This is a 51-year-old female with history of multiple left-sided renal stone, she is symptomatic from her stones. Additionally there is also potential of stone within the calyceal diverticulum. Discussed with her the option of a left-sided ureteroscopy with holmium laser. Discussed with her the risk which includes but not limited to bleeding, infection, injury to the ureter, potential of persistent pain even with stone removal given that there are nonobstructive. Discussed also given that some of the stones are within a calyceal diverticulum the potential and I may not be able to access the stones ureteroscopically. She understood all the risk and agreed to proceed with left-sided ureteroscopy, with holmium laser lithotripsy, stone basketing and stent Operative Findings: multiple left renal stones Description of Procedure: Patient brought to the operating room, general anesthesia was induced. She was prepped and draped in sterile fashion and placed in dorsal lithotomy position. Cystoscopy fitted with a 21-[place] sheath was inserted per urethra cystoscopy was performed which showed no abnormality in the bladder. Left ureteral orifice was intubated with the sensor wire. Next a 1113 [place] access sheath was passed over the wire into the proximal ureter. The ureteroscope was inserted through access sheath, renoscopy was performed which showed a large stones within the kidney. Using the holmium laser the stone was dusted, sizable fragments were removed using the stone basket. Repeat renoscopy showed no additional sizable fragments within the kidney, or injury to the kidney. On fluoroscopy there was no additional radiopaque densities within the collecting system. But of note there were 2 calcification outside the collecting system. Attempt to visualize the stones within the ureteroscope was unsuccessful, and they're not appeared to be a diverticular orifice within the collecting system. The Stone appeared to be outside the collecting system and this was consistent with a CT finding. At this time pullback ureteroscopy was performed which showed no injury to the kidney or any ureteral stones, there was no ureteral edema thus a stent was not placed. The bladder was emptied at the end of the case. Patient tolerated procedure well was taken to recovery in stable condition
[2022-05-29 09:19] VITALS: BP 131/78; PULSE 76
== END 2022-05-29 10:11 | disposition home or self-care (01) ==
LOC: OR 06:14
PROVIDERS: ATTEND Urology
DX: N20.0 Calculus of kidney (principal); J44.9 Chronic obstructive pulmonary disease, unspecified; K21.9 Gastro-esophageal reflux disease without esophagitis; M19.90 Unspecified osteoarthritis, unspecified site; Z90.49 Acquired absence of other specified parts of digestive tract; Z90.710 Acquired absence of both cervix and uterus; Z98.1 Arthrodesis status; Z79.899 Other long term (current) drug therapy
CPT/HCPCS: 82365; 74018; 52353; C1769; J0330; J1100; J2405; J3010; J2704; J2001

== ENCOUNTER → 2022-06-20 | Outpatient (CLI) | payer MEDICARE, OTHER ==
--- NOTE | 2022-06-20 14:39 | XR ---
EXAMINATION TYPE: XR KUB DATE OF EXAM: 06/20/2022 COMPARISON: 05/29/2022 INDICATION: Follow-up kidney stones TECHNIQUE: Single view abdomen FINDINGS: There is a normal bowel gas pattern. Psoas margins are normal. No organomegaly is present. There are 2 high density smooth calcifications in the superior pole left kidney. 0.9 cm each compatib le with prior superior pole renal stones. Additional prior renal stones are not identified. No ureter al stones are evident. There is moderate fecal retention throughout the colon. IMPRESSION: 1. Stable appearing superior pole left renal stones.
== END | disposition home or self-care (01) ==
LOC: RADXRMAIN 14:19
PROVIDERS: ATTEND Urology
DX: N20.2 Calculus of kidney with calculus of ureter (principal)
CPT/HCPCS: 74018

== ENCOUNTER 2022-08-30 09:31 | Inpatient (IN) | payer MEDICARE, OTHER ==
[2022-08-30] MEDS ORDERED: SODIUM CHLORIDE 0.9% 500 ML 500 ML IV STA (09:52)
[2022-08-30] MEDS ORDERED: ONDANSETRON 4 MG/2 ML VIAL IVP STA (09:52)
[2022-08-30] MEDS ORDERED: SODIUM CHLORIDE 0.9% 1,000 ML IV STA (09:52)
[2022-08-30] MEDS ORDERED: HYDROmorphone 0.5 MG/0.5 ML SYRINGE IVP STA ×2 (09:53→11:29)
--- NOTE | 2022-08-30 10:05 | ED ---
Abdominal Pain HPI - General Chief Complaint: Abdominal Pain Stated Complaint: Constipation Time Seen by Provider: 08/30/22 09:42 Source: patient, RN notes reviewed Mode of arrival: ambulatory Limitations: no limitations - History of Present Illness Initial Comments: 52-year-old female presents emergency department to complaint abdominal pain. Patient states she's been dealing with increased abdominal for 12 days. Patient was seen and [facility] on Saturday had lab work and CT showing evidence of diverticulitis. Patient states she's been diagnosed with ulcerative colitis by Dr. Price but has not seen GI for this. Patient states she's been having increasing pain in her lower mid abdomen. Patient states she's felt extremely constipated she's tried multiple laxatives with no relief. She said no dysuria she does take chronic pain meds for back problems. Patient does admit to nausea and vomiting - Related Data Home Medications Medication Instructions Recorded Confirmed Cyanocobalamin [Vitamin B-12] 1,000 tab PO DAILY 04/12/22 08/30/22 Montelukast [Singulair] 10 mg PO HS PRN 04/12/22 08/30/22 Multivitamins, Thera [Multivitamin 1 tab PO DAILY 04/12/22 08/30/22 (formulary)] OXcarbazepine [Trileptal] 300 mg PO QID 04/12/22 08/30/22 oxyCODONE HCL [oxyCODONE HCL (IR)] 20 mg PO QID PRN 04/12/22 08/30/22 Albuterol Inhaler [Ventolin Hfa 2 puff INHALATION RT-Q6H PRN 08/30/22 08/30/22 Inhaler] Amoxic-Pot Clav 875-125Mg 1 tab PO TID 08/30/22 08/30/22 [Augmentin 875-125] Ascorbic Acid [Vitamin C] 1,000 mg PO DAILY 08/30/22 08/30/22 Budesonide/Formoterol Fumarate 2 puff INHALATION RT-BID PRN 08/30/22 08/30/22 [Symbicort 160-4.5 Mcg Inhaler] Cholecalciferol [Vitamin D3 (25 25 mcg PO DAILY 08/30/22 08/30/22 Mcg = 1000 Iu)] Fluconazole [Diflucan] 150 mg PO ONCE PRN 08/30/22 08/30/22 Fluticasone Nasal [place] [Flonase 2 spray EA NOSTRIL BID PRN 08/30/22 08/30/22 Nasal [place]] Magnesium 250 mg PO DAILY 08/30/22 08/30/22 Omeprazole 20 mg PO DAILY PRN 08/30/22 08/30/22 Pravastatin Sodium [Pravachol] 40 mg PO HS 08/30/22 08/30/22 Allergies Allergy/AdvReac Type Severity Reaction Status Date / Time Sulfa (Sulfonamide Allergy Severe WHOLE BODY Verified 08/30/22 11:35 Antibiotics) HURTS codeine Allergy Vomiting Verified 08/30/22 11:35 morphine Allergy Vomiting Verified 08/30/22 11:35 adhesive tape AdvReac Rash/Hives Verified 08/30/22 11:35 pregabalin [From Lyrica] AdvReac FEELS LIKE Verified 08/30/22 11:35 HEAD IS SHAKING propofol AdvReac Nausea & Verified 08/30/22 11:35 Vomiting Review of Systems ROS Statement: Those systems with pertinent positive or pertinent negative responses have been documented in the HPI. ROS Other: All systems not noted in ROS Statement are negative. Past Medical History Past Medical History: Asthma, Cancer, COPD, Fibromyalgia, GERD/Reflux, Osteoarthritis (OA) Additional Past Medical History / Comment(s): pre-cancerous polyps with removal, diverticulitis, colitis, cervical/uterine cancer, degenerative disk disease,carpal tunnel, migraines, hypotensive, hiatal hernia, Ox at night 2.5 L, hypoglycemia, anemia, kidney stones History of Any Multi-Drug Resistant Organisms: None Reported Past Surgical History: Back Surgery, Cholecystectomy, Hernia Repair, Hysterectomy, Orthopedic Surgery, Tonsillectomy Additional Past Surgical History / Comment(s): R carpel tunnel release, cervical fusion, colonoscopy with cancerous polyps removed.laminectomy c spine fusion. kidney flush 05/24 Past Anesthesia/Blood Transfusion Reactions: Motion Sickness, Postoperative Nausea & Vomiting (PONV) Additional Past Anesthesia/Blood Transfusion Reaction / Comment(s): severe PONV- Past Psychological History: Anxiety Smoking Status: Current every day smoker Past Alcohol Use History: Occasional Past Drug Use History: None Reported, Marijuana - Past Family History Mother Family Medical History: Cancer Additional Family Medical History / Comment(s): . General Exam Limitations: no limitations General appearance: alert, in no apparent distress Head exam: Present: atraumatic, normocephalic, normal inspection Eye exam: Present: normal appearance, PERRL, EOMI. Absent: scleral icterus, conjunctival injection, periorbital swelling ENT exam: Present: normal exam, mucous membranes moist Neck exam: Present: normal inspection, full ROM. Absent: tenderness, meningismus, lymphadenopathy Respiratory exam: Present: normal lung sounds bilaterally. Absent: respiratory distress, wheezes, rales, rhonchi, stridor Cardiovascular Exam: Present: regular rate, normal rhythm, normal heart sounds. Absent: systolic murmur, diastolic murmur, rubs, gallop, clicks GI/Abdominal exam: Present: soft, tenderness, normal bowel sounds. Absent: distended, guarding, rebound, rigid Back exam: Absent: CVA tenderness (R), CVA tenderness (L) Course Vital Signs 08/30/22 08/30/22 08/30/22 09:32 10:19 11:25 Temperature 98.4 F 98.0 F 98.5 F Pulse Rate 100 85 86 Respiratory 18 19 17 Rate Blood Pressure 105/66 119/84 120/73 O2 Sat by Pulse 100 98 96 Oximetry 08/30/22 12:26 Temperature 98.5 F Pulse Rate 78 Respiratory 17 Rate Blood Pressure 111/62 O2 Sat by Pulse 96 Oximetry Medical Decision Making - Medical Decision Making Was pt. sent in by a medical professional or institution (, PA, CHIEF ENVIRONMENTAL COMMITMENT OFFICER, urgent care, hospital, or halfway...) When possible be specific @ -No Did you speak to anyone other than the patient for history (EMS, parent, family, police, friend...)? What history was obtained from this source @ -No Did you review nursing and triage notes (agree or disagree)? Why? @ -I reviewed and agree with nursing and triage notes Were old charts reviewed (outside hosp., previous admission, EMS record, old EKG, old radiological studies, urgent care reports/EKG's, halfway records)? Report findings @ -Reviewed laboratory studies and CT read from [facility] Differential Diagnosis (chest pain, altered mental status, abdominal pain women, abdominal pain men, vaginal bleeding, weakness, fever, dyspnea, syncope, headache, dizziness, GI bleed, back pain, seizure, CVA, palpatations, mental health, musculoskeletal)? @ -Differential Abdominal Pain Women: Appendicitis, Cholecystitis, diverticulosis, ischemic bowel, pancreatitis, hepatitis, UTI, gastroenteritis, AAA, incarcerated hernia, bowel obstruction, constipation, inflammatory bowel, hepatitis, peptic ulcer disease, splenic infarction, perforated viscus, vulvitis, ovarian torsion, PID, kidney stone, placenta abruption, this is not meant to be an all-inclusive list EKG interpreted by me (3pts min.). @ -None X-rays interpreted by me (1pt min.). @ -None done CT interpreted by me (1pt min.). @ -CT pelvis shows evidence of colitis, diverticulitis with partial bowel obstruction U/S interpreted by me (1pt. min.). @ -None done What testing was considered but not performed or refused? (CT, X-rays, U/S, labs)? Why? @ -None What meds were considered but not given or refused? Why? @ -None Did you discuss the management of the patient with other professionals (professionals i.e. , PA, CHIEF ENVIRONMENTAL COMMITMENT OFFICER, lab, RT, psych nurse, social service manager, search engine marketing strategist, teacher, commanding officer motorized squad, rn case management)? Give summary @ -[Discussed the case with Dr. mcneal for admission he requested consult to Dr. Danielania Was smoking cessation discussed for >3mins.? @ -No Was critical care preformed (if so, how long)? @ -No Were there social determinants of health that impacted care today? How? (Homelessness, low income, unemployed, alcoholism, drug addiction, transportation, low edu. Level, literacy, decrease access to med. care, correction, rehab)? @ -No Was there de-escalation of care discussed even if they declined (Discuss DNR or withdrawal of care, Hospice)? DNR status @ -No What co-morbidities impacted this encounter? (DM, HTN, Smoking, COPD, CAD, Cancer, CVA, ARF, Chemo, Hep., AIDS, mental health diagnosis, sleep apnea, morbid obesity)? @ -Colitis Was patient admitted / discharged? Hospital course, mention meds given and route, prescriptions, significant lab abnormalities, going to OR and other pertinent info. @ -Admitted patient has evidence of ongoing is, colitis with partial bowel obstruction. Patient started on IV antibiotics, nothing by mouth IV fluids pain control. Undiagnosed new problem with uncertain prognosis? @ -No Drug Therapy requiring intensive monitoring for toxicity (Heparin, Nitro, Insulin, Cardizem)? @ -No Were any procedures done? @ -No Diagnosis/symptom? @ -Diverticulitis, colitis, partial bowel obstruction Acute, or Chronic, or Acute on Chronic? @ -Acute Uncomplicated (without systemic symptoms) or Complicated (systemic symptoms)? @ -complicated Side effects of treatment? @ -No Exacerbation, Progression, or Severe Exacerbation? @ -No Poses a threat to life or bodily function? How? (Chest pain, USA, OR, pneumonia, PE, COPD, DKA, ARF, appy, cholecystitis, CVA, Diverticulitis, Homicidal, Suicidal, threat to staff... and all critical care pts) @ -No - Lab Data Result diagrams: 08/30/22 10:00 08/30/22 10:00 Lab Results 08/30/22 08/30/22 08/30/22 Range/Units 10:00 10:00 10:00 WBC 16.8 H (3.8-10.6) k/uL RBC 4.65 (3.80-5.40) m/uL Hgb 14.6 (11.4-16.0) gm/dL Hct 43.3 (34.0-46.0) % MCV 93.2 (80.0-100.0) fL MCH 31.5 (25.0-35.0) pg MCHC 33.8 (31.0-37.0) g/dL RDW 12.6 (11.5-15.5) % Plt Count 343 (150-450) k/uL MPV 8.0 Neutrophils % 87 % Lymphocytes % 7 % Monocytes % 4 % Eosinophils % 1 % Basophils % 0 % Neutrophils # 14.7 H (1.3-7.7) k/uL Lymphocytes # 1.1 (1.0-4.8) k/uL Monocytes # 0.7 (0-1.0) k/uL Eosinophils # 0.2 (0-0.7) k/uL Basophils # 0.0 (0-0.2) k/uL Sodium 135 L (137-145) mmol/L Potassium 3.8 (3.5-5.1) mmol/L Chloride 102 (98-107) mmol/L Carbon Dioxide 22 (22-30) mmol/L Anion Gap 11 mmol/L BUN 8 (7-17) mg/dL Creatinine 0.52 (0.52-1.04) mg/dL Est GFR (CKD-EPI)AfAm >90 (>60 ml/min/1.73 sqM) Est GFR (CKD-EPI)NonAf >90 (>60 ml/min/1.73 sqM) Glucose 113 H (74-99) mg/dL Plasma Lactic Acid Mehrdad 0.9 (0.7-2.0) mmol/L Calcium 9.2 (8.4-10.2) mg/dL Total Bilirubin 0.6 (0.2-1.3) mg/dL AST 29 (14-36) U/L ALT 45 H (4-34) U/L Alkaline Phosphatase 120 (38-126) U/L Total Protein 6.9 (6.3-8.2) g/dL Albumin 3.9 (3.5-5.0) g/dL Lipase 89 (23-300) U/L Urine Color Urine Appearance (Clear) Urine pH (5.0-8.0) Ur Specific [place] (1.001-1.035) Urine Protein (Negative) Urine Glucose (UA) (Negative) Urine Ketones (Negative) Urine Blood (Negative) Urine Nitrite (Negative) Urine Bilirubin (Negative) Urine Urobilinogen (<2.0) mg/dL Ur Leukocyte Esterase (Negative) Urine RBC (0-5) /hpf Urine WBC (0-5) /hpf Ur Squamous Epith Cells (0-4) /hpf Hyaline Casts (0-2) /lpf Urine Mucus (None) /hpf 08/30/22 Range/Units 10:00 WBC (3.8-10.6) k/uL RBC (3.80-5.40) m/uL Hgb (11.4-16.0) gm/dL Hct (34.0-46.0) % MCV (80.0-100.0) fL MCH (25.0-35.0) pg MCHC (31.0-37.0) g/dL RDW (11.5-15.5) % Plt Count (150-450) k/uL MPV Neutrophils % % Lymphocytes % % Monocytes % % Eosinophils % % Basophils % % Neutrophils # (1.3-7.7) k/uL Lymphocytes # (1.0-4.8) k/uL Monocytes # (0-1.0) k/uL Eosinophils # (0-0.7) k/uL Basophils # (0-0.2) k/uL Sodium (137-145) mmol/L Potassium (3.5-5.1) mmol/L Chloride (98-107) mmol/L Carbon Dioxide (22-30) mmol/L Anion Gap mmol/L BUN (7-17) mg/dL Creatinine (0.52-1.04) mg/dL Est GFR (CKD-EPI)AfAm (>60 ml/min/1.73 sqM) Est GFR (CKD-EPI)NonAf (>60 ml/min/1.73 sqM) Glucose (74-99) mg/dL Plasma Lactic Acid Mehrdad (0.7-2.0) mmol/L Calcium (8.4-10.2) mg/dL Total Bilirubin (0.2-1.3) mg/dL AST (14-36) U/L ALT (4-34) U/L Alkaline Phosphatase (38-126) U/L Total Protein (6.3-8.2) g/dL Albumin (3.5-5.0) g/dL Lipase (23-300) U/L Urine Color Yellow Urine Appearance Cloudy H (Clear) Urine pH 6.0 (5.0-8.0) Ur Specific [place] 1.028 (1.001-1.035) Urine Protein 1+ H (Negative) Urine Glucose (UA) Negative (Negative) Urine Ketones 4+ H (Negative) Urine Blood Small H (Negative) Urine Nitrite Negative (Negative) Urine Bilirubin 1+ H (Negative) Urine Urobilinogen 6.0 (<2.0) mg/dL Ur Leukocyte Esterase Negative (Negative) Urine RBC 7 H (0-5) /hpf Urine WBC 1 (0-5) /hpf Ur Squamous Epith Cells 12 H (0-4) /hpf Hyaline Casts 2 (0-2) /lpf Urine Mucus Many H (None) /hpf Disposition Clinical Impression: Constipation, Bowel obstruction, Diverticulitis Disposition: ADMITTED IP TO THIS [facility] Referrals: Ramirez Michael MD [Primary Care Provider] - 1-2 days Time of Disposition: 12:09
[2022-08-30 10:12] LABS: Basophils % (A) 0 %; Eosinophils # (A) 0.2 k/uL (0-0.7); Eosinophils % (A) 1 %; HCT 43.3 % (34.0-46.0); HGB 14.6 gm/dL (11.4-16.0); Lymphocytes # (A) 1.1 k/uL (1.0-4.8); Lymphocytes % (A) 7 %; MCH 31.5 pg (25.0-35.0); MCHC 33.8 g/dL (31.0-37.0); MCV 93.2 fL (80.0-100.0); Monocytes # (A) 0.7 k/uL (0-1.0); Monocytes % (A) 4 %; Neutrophils # (A) 14.7 k/uL (1.3-7.7); Neutrophils % (A) 87 %; Platelet Count 343 k/uL (150-450); RBC 4.65 m/uL (3.80-5.40); RDW 12.6 % (11.5-15.5); WBC 16.8 k/uL (3.8-10.6)
[2022-08-30 10:23] LABS: ALT 45 U/L (4-34); AST 29 U/L (14-36); African American GFR (CKD) >90 (>60 ml/min/1.73 sqM); Albumin 3.9 g/dL (3.5-5.0); Alkaline Phosphatase 120 U/L (38-126); Anion Gap 11 mmol/L; Blood Urea Nitrogen 8 mg/dL (7-17); Calcium 9.2 mg/dL (8.4-10.2); Carbon Dioxide 22 mmol/L (22-30); Chloride 102 mmol/L (98-107); Glucose 113 mg/dL (74-99); Lipase 89 U/L (23-300); Non-African American GFR(CKD) >90 (>60 ml/min/1.73 sqM); Potassium 3.8 mmol/L (3.5-5.1); Sodium 135 mmol/L (137-145); Total Bilirubin 0.6 mg/dL (0.2-1.3); Total Protein 6.9 g/dL (6.3-8.2)
--- NOTE | 2022-08-30 10:34 | XR ---
EXAMINATION TYPE: XR KUB DATE OF EXAM: 08/30/2022 COMPARISON: KUB radiograph 06/20/2022 HISTORY: Pain TECHNIQUE: Upright KUB was obtained. FINDINGS: Multiple air-fluid levels demonstrated throughout the prominent bowel. Gas is identified within the r ectum. No convincing evidence for pneumoperitoneum. Cholecystectomy clips in the right upper quadrant . Mesh anchors identified within the right lower abdomen. Multiple pelvic phleboliths. Left superior pole renal calcifications demonstrated. The osseous structures are intact. IMPRESSION: 1. Multiple air-fluid levels within the prominent bowel concerning for obstruction versus ileus. Con banking center manager further evaluation with CT abdomen and pelvis. 2. Left renal calculi.
[2022-08-30 10:46] LABS: Appearance,Urine Cloudy (Clear); Bilirubin,Urine 1+ (Negative); Blood,Urine Small (Negative); Color,Urine Yellow; Glucose,Urine (UA) Negative (Negative); Hyaline Casts,Urine 2 /lpf (0-2); Ketones,Urine 4+ (Negative); Leukocyte Esterase,Urine Negative (Negative); Mucus,Urine Many /hpf; Nitrite,Urine Negative (Negative); Protein,Urine 1+ (Negative); RBC,Urine 7 /hpf (0-5); Specific Gravity,Urine 1.028 (1.001-1.035); Squamous Epithelial Cell,Urine 12 /hpf (0-4); WBC,Urine 1 /hpf (0-5)
--- NOTE | 2022-08-30 11:27 | CT ---
EXAMINATION TYPE: CT abdomen pelvis w con CT DLP: 1154.5 mGycm, Automated exposure control for dose reduction was used. DATE OF EXAM: 08/30/2022 11:13 AM COMPARISON: CT abdomen pelvis most recent from 03/01/2022, 05/26/2016 CLINICAL INDICATION:Female, 52 years old with history of pain, possible obstruction; constipation pt has not had a BM for 12 days TECHNIQUE: Axial CT of the abdomen and pelvis. Sagittal and coronal reformats were created on a [employer] workstation. Contrast used:100 mL of Isovue 370 with IV Contrast, (none if empty) Oral contrast used: without Oral Contrast (none if empty) FINDINGS: LOWER CHEST: Unremarkable ABDOMEN LIVER: Unremarkable GALLBLADDER AND BILE DUCTS: Gallbladder is surgically absent with mild intrahepatic and extra hepatic biliary dilatation likely physiologic and a postcholecystectomy change. No evidence of choledocholit hiasis. PANCREAS: Pancreatic tail cyst measuring 20 x 14 mm which is not seen in 2017 studies and measured up to 14 x 11 mm in 2021 study. SPLEEN: Unremarkable. ADRENAL GLANDS: Unremarkable. KIDNEYS AND URETERS: No evidence of hydronephrosis. Nodular 2 right renal calculi measuring up to 3 m m. Suspected left calyceal diverticulum renal calculi present. Measuring up to 7 mm. PELVIS BLADDER: Incompletely distended but grossly unremarkable. REPRODUCTIVE: The uterus is not visualized. ABDOMEN & PELVIS STOMACH AND BOWEL: Abnormal appearance to the sigmoid colon with circumferential wall thickening with outpouching of fecal matter just upstream to an area of irregular wall thickening. Findings are sugg estive of at least partial obstruction. Impaction just upstream from this area is suspected causing s ome reactive local ileus. PERITONEUM/RETROPERITONEUM: No evidence of pneumoperitoneum or free fluid. VASCULATURE: No evidence of aortic aneurysm. MUSCULOSKELETAL: No acute osseous abnormalities LYMPH NODES: No gross evidence for lymphadenopathy. SOFT TISSUE/ABDOMINAL WALL: Unremarkable IMPRESSION: 1. Sigmoid colitis without definitive perforation at this time. There is irregular appearance of the wall immediately downstream compatible with at least partial obstruction with upstream fecal impact ion with outpouching of fecal material of appearance on CT. After medical management, colonoscopy is recommended if not recently performed to exclude underlying lesions.. 2. Pancreatic tail cyst could represent pseudocyst versus pancreatic intraductal papillary mucinous neoplasm finding not seen in 2017 and is increase in size from 2021. Surveillance with MRCP MRI with IV contrast is recommended in one year. 3. 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 4. Nonobstructing right renal calculi.
[2022-08-30] MEDS ORDERED: diphenhydrAMINE 50 MG/ML 1 ML VIAL IVP STA (11:29)
[2022-08-30] MEDS ORDERED: KETOROLAC 15 MG/ML 1 ML VIAL IVP STA (11:29)
[2022-08-30] MEDS ORDERED: PIPERACILLIN-TAZOBACTAM 3.375 GM in SODIUM CHLORIDE 0.9% 100 ML IVPB STA (11:52)
[2022-08-30] MEDS ORDERED: NALOXONE 0.4 MG/ML 1 ML VIAL IV PRN (11:54)
[2022-08-30] MEDS: SODIUM CHLORIDE 0.9% 1,000 ML IV SCH (12:22)
[2022-08-30] MEDS: HYDROmorphone 0.5 MG/0.5 ML SYRINGE IVP PRN ×3 (14:48→20:33)
--- NOTE | 2022-08-30 15:36 | P.HPIM ---
History of Present Illness This is a pleasant 52 years old female with past medical history of Asthma, COPD, Fibromyalgia, GERD/Reflux, Osteoarthritis diverticulitis, cervical/uterine cancer, degenerative disk disease, migraines, hhiatal hernia, Current every day smoker Patient presents because of abdominal pain which started last Saturday and he wants to [facility] which is close by her house, she underwent workup including CAT scan of the abdomen and that she has been told she has diverticulitis and sent home with antibiotic however patient kept getting worse, she is getting more tenderness, more abdominal pain more nauseous and she will not She describes her pain as in the left lower quadrant about 10/10 in severity fed like crampy, radiating across the right abdomen. Also associated with vomiting, patient vomited about 5-6 times with no blood. Patient says that she has normal bowel movement over the last 12 days. However very sharp she denies current dizziness or headache, no new weakness or numbness. She denies chest pain dyspnea or coughing. She smokes 1 pack per day and she was counseled to quit and agrees but she declines nicotine patch 104. Alcohol and uses marijuana. She denies neurological, or urinary symptoms, no dysuria urgency. Patient is afebrile and vital signs are stable She has leukocytosis of 16.8, rest of labs including risks of CBC, BMP, liver enzymes and unremarkable. CT of the abdomen and pelvis shows sigmoid colitis with no definitive perforation. There is irregular appearance of the wall immediately downstream compatible with at least partial obstruction with up citrine fecal impaction with outpouching of the fecal material. And colonoscopy is recommended down the stream. Also patient has pancreatic tail cyst (patient told me she is aware about the cyst or mass and she is been being worked up for it) Multiple renal calculi, nonobstructing on the right side Patient received 1.5 L of normal saline, Dilaudid and started on Zosyn. Review of Systems Review of systems CONSTITUTIONAL: No fever, no malaise, no fatigue. HEENT: No recent visual problems or hearing problems. Denied any sore throat. CARDIOVASCULAR: No orthopnea, PND, no palpitations, no syncope. PULMONARY: No shortness of breath, no cough, no hemoptysis. -GASTROINTESTINAL: As above NEUROLOGICAL: No headaches, no weakness, no numbness. HEMATOLOGICAL: Denies any bleeding or petechiae. GENITOURINARY: Denies any burning micturition, frequency, or urgency. MUSCULOSKELETAL/RHEUMATOLOGICAL: Denies any joint pain, swelling, or any muscle pain. ENDOCRINE: Denies any polyuria or polydipsia. Past Medical History Past Medical History: Asthma, Cancer, COPD, Fibromyalgia, GERD/Reflux, Osteoarthritis (OA) Additional Past Medical History / Comment(s): pre-cancerous polyps with removal, diverticulitis, colitis, cervical/uterine cancer, degenerative disk disease,carpal tunnel, migraines, hypotensive, hiatal hernia, Ox at night 2.5 L, hypoglycemia, anemia, kidney stones History of Any Multi-Drug Resistant Organisms: None Reported Past Surgical History: Back Surgery, Cholecystectomy, Hernia Repair, Hysterectomy, Orthopedic Surgery, Tonsillectomy Additional Past Surgical History / Comment(s): R carpel tunnel release, cervical fusion, colonoscopy with cancerous polyps removed.laminectomy c spine fusion. kidney flush 05/24 Past Anesthesia/Blood Transfusion Reactions: Motion Sickness, Postoperative Nausea & Vomiting (PONV) Additional Past Anesthesia/Blood Transfusion Reaction / Comment(s): severe PONV- Past Psychological History: Anxiety Smoking Status: Current every day smoker Past Alcohol Use History: Occasional Past Drug Use History: None Reported, Marijuana - Past Family History Mother Family Medical History: Cancer Additional Family Medical History / Comment(s): . Medications and Allergies Home Medications Medication Instructions Recorded Confirmed Type Cyanocobalamin [Vitamin B-12] 1,000 tab PO DAILY 04/12/22 08/30/22 History Montelukast [Singulair] 10 mg PO HS PRN 04/12/22 08/30/22 History Multivitamins, Thera [Multivitamin 1 tab PO DAILY 04/12/22 08/30/22 History (formulary)] OXcarbazepine [Trileptal] 300 mg PO QID 04/12/22 08/30/22 History oxyCODONE HCL [oxyCODONE HCL (IR)] 20 mg PO QID PRN 04/12/22 08/30/22 History Albuterol Inhaler [Ventolin Hfa 2 puff INHALATION RT-Q6H PRN 08/30/22 08/30/22 History Inhaler] Amoxic-Pot Clav 875-125Mg 1 tab PO TID 08/30/22 08/30/22 History [Augmentin 875-125] Ascorbic Acid [Vitamin C] 1,000 mg PO DAILY 08/30/22 08/30/22 History Budesonide/Formoterol Fumarate 2 puff INHALATION RT-BID PRN 08/30/22 08/30/22 History [Symbicort 160-4.5 Mcg Inhaler] Cholecalciferol [Vitamin D3 (25 25 mcg PO DAILY 08/30/22 08/30/22 History Mcg = 1000 Iu)] Fluconazole [Diflucan] 150 mg PO ONCE PRN 08/30/22 08/30/22 History Fluticasone Nasal [place] [Flonase 2 spray EA NOSTRIL BID PRN 08/30/22 08/30/22 History Nasal [place]] Magnesium 250 mg PO DAILY 08/30/22 08/30/22 History Omeprazole 20 mg PO DAILY PRN 08/30/22 08/30/22 History Pravastatin Sodium [Pravachol] 40 mg PO HS 08/30/22 08/30/22 History Allergies Allergy/AdvReac Type Severity Reaction Status Date / Time Sulfa (Sulfonamide Allergy Severe WHOLE BODY Verified 08/30/22 11:35 Antibiotics) HURTS codeine Allergy Vomiting Verified 08/30/22 11:35 morphine Allergy Vomiting Verified 08/30/22 11:35 adhesive tape AdvReac Rash/Hives Verified 08/30/22 11:35 pregabalin [From Lyrica] AdvReac FEELS LIKE Verified 08/30/22 11:35 HEAD IS SHAKING propofol AdvReac Nausea & Verified 08/30/22 11:35 Vomiting Physical Exam Vitals: Vital Signs Temp Pulse Resp BP Pulse Ox 08/30/22 13:25 98.3 F 74 18 97/61 96 08/30/22 12:26 98.5 F 78 17 111/62 96 08/30/22 11:25 98.5 F 86 17 120/73 96 08/30/22 10:19 98.0 F 85 19 119/84 98 08/30/22 09:32 98.4 F 100 18 105/66 100 Intake and Output 08/29/22 08/30/22 08/30/22 22:59 06:59 14:59 Other: Weight 79.832 kg GENERAL: The patient is alert and oriented x3, not in any acute distress. Well developed, well nourished. HEENT: Pupils are round and equally reacting to light. EOMI. No scleral icterus. No conjunctival pallor. Normocephalic, atraumatic. No pharyngeal erythema. No thyromegaly. CARDIOVASCULAR: S1 and S2 present. No murmurs, rubs, or gallops. PULMONARY: Chest is clear to auscultation, no wheezing , no crackles. -ABDOMEN: Soft, LL tenderness, no rebound tenderness or guarding, nondistended, normoactive bowel sounds. No palpable organomegaly. MUSCULOSKELETAL: No joint swelling or deformity. EXTREMITIES: No cyanosis, clubbing, or pedal edema. NEUROLOGICAL: Gross neurological examination did not reveal any focal deficits. SKIN: No rashes. no petechiae. Results CBC & Chem 7: 08/30/22 10:00 08/30/22 10:00 Labs: Abnormal Lab Results - Last 24 Hours (Table) 08/30/22 08/30/22 08/30/22 Range/Units 10:00 10:00 10:00 WBC 16.8 H (3.8-10.6) k/uL Neutrophils # 14.7 H (1.3-7.7) k/uL Sodium 135 L (137-145) mmol/L Glucose 113 H (74-99) mg/dL ALT 45 H (4-34) U/L Urine Appearance Cloudy H (Clear) Urine Protein 1+ H (Negative) Urine Ketones 4+ H (Negative) Urine Blood Small H (Negative) Urine Bilirubin 1+ H (Negative) Urine RBC 7 H (0-5) /hpf Ur Squamous Epith Cells 12 H (0-4) /hpf Urine Mucus Many H (None) /hpf Assessment and Plan Assessment: Acute diverticulitis with bowel obstruction, failed outpatient therapy Multiple renal calculi, nonobstructing on the right side A known case of pancreatic mass that has been checked before as per patient, follow-up as an outpatient COPD/asthma With no exacerbation History of fibromyalgia History of GERD History of osteoarthritis History of diverticulitis History of cervical/uterine cancer History of hiatal hernia History of migraine Plan: continue with Zosyn Continue with normal saline 75 mm/h Continue with pain management. Surgery team consult GI team consult Bowel rest Labs and medication were reviewed.. Continue same treatment. Continue with symptomatic treatment. Resume home medication. Monitor labs and vitals. DVT and GI prophylaxis. Further recommendations as per clinical course of the patient DVT prophylaxis: Subcutaneous heparin GI Prophylaxis: Pepcid PT/OT: Pending Prognosis is guarded
[2022-08-30] MEDS: PIPERACILLIN-TAZOBACTAM 3.375 GM in SODIUM CHLORIDE 0.9% 100 ML IVPB SCH (15:43)
--- NOTE | 2022-08-30 15:51 | P.GSCN ---
History of Present Illness Consult date: 08/30/22 History of present illness: CHIEF COMPLAINT: Abdominal pain HISTORY OF PRESENT ILLNESS: This is a 52-year-old who presented to the hospital with complaints of pain across the lower abdomen for the last 12 days. She has been having nausea and vomiting. She reports feeling distended. She is only been passing mucus from her rectum. It's been several days since her last bowel movement. She did have a small amount of flatus 2 today. Patient had been seen at [facility] on Saturday and computed tomography scan had shown evidence of diverticulitis. She has had prior history of bowel obstructions that were managed conservatively. Past surgical history does include cholecystectomy, hysterectomy and hernia repair. Her last EGD and colonoscopy were in 2017. Colonoscopy had showed internal hemorrhoids, diverticulitis and cecal polyp status post removal. Her EGD had shown hiatal hernia and erosive esophagitis and gastritis. Patient had a computed tomography scan completed that showed sigmoid colitis without definitive perforation. There is irregular appearance of the wall may be downstream compatible with at least partial obstruction with upstream fecal impaction. With outpouching of fecal material. Patient denies any fever chills or sweats. Patient reports also history of diverticulitis, ulcerative colitis and irritable bowel syndrome. Patient also reports a history of a pancreatic cyst. PAST MEDICAL HISTORY: See below. History of pancreatic cyst and kidney stones PAST SURGICAL HISTORY: See below MEDICATIONS: See below ALLERGIES: See below SOCIAL HISTORY: No illicit drug use. REVIEW OF SYSTEMS: CONSTITUTIONAL: Denies fever or chills. HEENT: Denies blurred vision, vision changes, or eye pain. Denies hemoptysis CARDIOVASCULAR: Denies chest pain or pressure. RESPIRATORY: No shortness of breath. GASTROINTESTINAL: See HPI for pertinent findings HEMATOLOGIC: Denies bleeding disorders. GENITOURINARY: Denies any blood in urine or increased urinary frequency. SKIN: Denies pruitis. Denies rash. PHYSICAL EXAM: VITAL SIGNS: Reviewed GENERAL: Well-developed in no acute distress. HEENT: No sclera icterus. Extraocular movements grossly intact. Moist buccal mucosa. Head is atraumatic, normocephalic. No nasal drainage. ABDOMEN: Soft. Mildly distended. Tenderness across the lower abdomen more tender in the left lower quadrant NEUROLOGIC: Alert and oriented. Cranial nerves II through XII grossly intact. LABORATORY DATA: WBC 16.8 Hgb 14.6 platelets 343 Sodium 135 potassium 3.8 creatinine 0.52 Lactic acid 0.9 Lipase 89 total bili 0.6 AST 29 ALT 45 Urinalysis small blood IMAGING: Computed tomography scan abdomen and pelvis with sigmoid colitis without definitive perforation at this time. There is irregular appearance of the wall medially downstream compatible with at least partial obstruction with upstream fecal impaction with outpouching of fecal material of appearance on CT. After medical management colonoscopy is recommended if not recently performed exclude underlying lesions. Pancreatic tail cyst could represent pseudocyst versus pancreatic intraductal papillary mucinous neoplasm findings not seen in 2017 and increase in size from 2021. Surveillance with MRCP with IV contrast is re commended in 1 year. Left calyceal diverticulum renal calculi present and nonobstructing right renal calculus. ASSESSMENT: 1. Abdominal pain 2. Sigmoid colitis 3. Partial obstruction with fecal impaction 4. Kidney stones 5. Pancreatic tail cyst PLAN: -Further recommendations forthcoming per surgeon -Keep patient nothing by mouth -Continue IV antibiotics -Continue IV fluids -Continue pain management -Continue antibiotics Thank you for this consultation Physician Acute Specialist note has been reviewed by physician. Signing provider agrees with the documented findings, assessment, and plan of care. Past Medical History Past Medical History: Asthma, Cancer, COPD, Fibromyalgia, GERD/Reflux, Osteoarthritis (OA) Additional Past Medical History / Comment(s): pre-cancerous polyps with removal, diverticulitis, colitis, cervical/uterine cancer, degenerative disk disease,carpal tunnel, migraines, hypotensive, hiatal hernia, Ox at night 2.5 L, hypoglycemia, anemia, kidney stones History of Any Multi-Drug Resistant Organisms: None Reported Past Surgical History: Back Surgery, Cholecystectomy, Hernia Repair, Hysterectomy, Orthopedic Surgery, Tonsillectomy Additional Past Surgical History / Comment(s): R carpel tunnel release, cervical fusion, colonoscopy with cancerous polyps removed.laminectomy c spine fusion. kidney flush 05/24 Past Anesthesia/Blood Transfusion Reactions: Motion Sickness, Postoperative Nausea & Vomiting (PONV) Additional Past Anesthesia/Blood Transfusion Reaction / Comm: severe PONV- Past Psychological History: Anxiety Smoking Status: Current every day smoker Past Alcohol Use History: Occasional Past Drug Use History: None Reported, Marijuana - Past Family History Mother Family Medical History: Cancer Additional Family Medical History / Comment(s): . Medications and Allergies Home Medications Medication Instructions Recorded Confirmed Type Cyanocobalamin [Vitamin B-12] 1,000 tab PO DAILY 04/12/22 08/30/22 History Montelukast [Singulair] 10 mg PO HS PRN 04/12/22 08/30/22 History Multivitamins, Thera [Multivitamin 1 tab PO DAILY 04/12/22 08/30/22 History (formulary)] OXcarbazepine [Trileptal] 300 mg PO QID 04/12/22 08/30/22 History oxyCODONE HCL [oxyCODONE HCL (IR)] 20 mg PO QID PRN 04/12/22 08/30/22 History Albuterol Inhaler [Ventolin Hfa 2 puff INHALATION RT-Q6H PRN 08/30/22 08/30/22 History Inhaler] Amoxic-Pot Clav 875-125Mg 1 tab PO TID 08/30/22 08/30/22 History [Augmentin 875-125] Ascorbic Acid [Vitamin C] 1,000 mg PO DAILY 08/30/22 08/30/22 History Budesonide/Formoterol Fumarate 2 puff INHALATION RT-BID PRN 08/30/22 08/30/22 History [Symbicort 160-4.5 Mcg Inhaler] Cholecalciferol [Vitamin D3 (25 25 mcg PO DAILY 08/30/22 08/30/22 History Mcg = 1000 Iu)] Fluconazole [Diflucan] 150 mg PO ONCE PRN 08/30/22 08/30/22 History Fluticasone Nasal [place] [Flonase 2 spray EA NOSTRIL BID PRN 08/30/22 08/30/22 History Nasal [place]] Magnesium 250 mg PO DAILY 08/30/22 08/30/22 History Omeprazole 20 mg PO DAILY PRN 08/30/22 08/30/22 History Pravastatin Sodium [Pravachol] 40 mg PO HS 08/30/22 08/30/22 History Allergies Allergy/AdvReac Type Severity Reaction Status Date / Time Sulfa (Sulfonamide Allergy Severe WHOLE BODY Verified 08/30/22 11:35 Antibiotics) HURTS codeine Allergy Vomiting Verified 08/30/22 11:35 morphine Allergy Vomiting Verified 08/30/22 11:35 adhesive tape AdvReac Rash/Hives Verified 08/30/22 11:35 pregabalin [From Lyrica] AdvReac FEELS LIKE Verified 08/30/22 11:35 HEAD IS SHAKING propofol AdvReac Nausea & Verified 08/30/22 11:35 Vomiting Surgical - Exam Vital Signs Temp Pulse Resp BP Pulse Ox 98.4 F 100 18 105/66 100 08/30/22 09:32 08/30/22 09:32 08/30/22 09:32 08/30/22 09:32 08/30/22 09:32 Results - Labs 08/30/22 10:00 08/30/22 10:00 Abnormal Lab Results - Last 24 Hours (Table) 08/30/22 08/30/22 08/30/22 Range/Units 10:00 10:00 10:00 WBC 16.8 H (3.8-10.6) k/uL Neutrophils # 14.7 H (1.3-7.7) k/uL Sodium 135 L (137-145) mmol/L Glucose 113 H (74-99) mg/dL ALT 45 H (4-34) U/L Urine Appearance Cloudy H (Clear) Urine Protein 1+ H (Negative) Urine Ketones 4+ H (Negative) Urine Blood Small H (Negative) Urine Bilirubin 1+ H (Negative) Urine RBC 7 H (0-5) /hpf Ur Squamous Epith Cells 12 H (0-4) /hpf Urine Mucus Many H (None) /hpf Diabetes panel 08/30/22 Range/Units 10:00 Sodium 135 L (137-145) mmol/L Potassium 3.8 (3.5-5.1) mmol/L Chloride 102 (98-107) mmol/L Carbon Dioxide 22 (22-30) mmol/L BUN 8 (7-17) mg/dL Creatinine 0.52 (0.52-1.04) mg/dL Glucose 113 H (74-99) mg/dL Calcium 9.2 (8.4-10.2) mg/dL AST 29 (14-36) U/L ALT 45 H (4-34) U/L Alkaline Phosphatase 120 (38-126) U/L Total Protein 6.9 (6.3-8.2) g/dL Albumin 3.9 (3.5-5.0) g/dL Calcium panel 08/30/22 Range/Units 10:00 Calcium 9.2 (8.4-10.2) mg/dL Albumin 3.9 (3.5-5.0) g/dL Pituitary panel 08/30/22 Range/Units 10:00 Sodium 135 L (137-145) mmol/L Potassium 3.8 (3.5-5.1) mmol/L Chloride 102 (98-107) mmol/L Carbon Dioxide 22 (22-30) mmol/L BUN 8 (7-17) mg/dL Creatinine 0.52 (0.52-1.04) mg/dL Glucose 113 H (74-99) mg/dL Calcium 9.2 (8.4-10.2) mg/dL Adrenal panel 08/30/22 Range/Units 10:00 Sodium 135 L (137-145) mmol/L Potassium 3.8 (3.5-5.1) mmol/L Chloride 102 (98-107) mmol/L Carbon Dioxide 22 (22-30) mmol/L BUN 8 (7-17) mg/dL Creatinine 0.52 (0.52-1.04) mg/dL Glucose 113 H (74-99) mg/dL Calcium 9.2 (8.4-10.2) mg/dL Total Bilirubin 0.6 (0.2-1.3) mg/dL AST 29 (14-36) U/L ALT 45 H (4-34) U/L Alkaline Phosphatase 120 (38-126) U/L Total Protein 6.9 (6.3-8.2) g/dL Albumin 3.9 (3.5-5.0) g/dL
[2022-08-30] MEDS: FAMOTIDINE 20 MG/2 ML VIAL IV SCH (20:33)
[2022-08-30] MEDS: HEPARIN SODIUM,PORCINE/PF 5,000 UNIT/0.5 ML SYRINGE SQ SCH (20:33)
[2022-08-31] MEDS: PIPERACILLIN-TAZOBACTAM 3.375 GM in SODIUM CHLORIDE 0.9% 100 ML IVPB SCH ×4 (00:08→23:58)
[2022-08-31] MEDS: HYDROmorphone 0.5 MG/0.5 ML SYRINGE IVP PRN ×4 (00:10→12:54)
[2022-08-31] MEDS: ONDANSETRON 4 MG/2 ML VIAL IVP PRN ×2 (00:22→17:45)
[2022-08-31] MEDS: SODIUM CHLORIDE 0.9% 1,000 ML IV SCH ×3 (07:28→20:14)
[2022-08-31] MEDS: FAMOTIDINE 20 MG/2 ML VIAL IV SCH ×2 (09:09→20:13)
[2022-08-31] MEDS: HEPARIN SODIUM,PORCINE/PF 5,000 UNIT/0.5 ML SYRINGE SQ SCH ×2 (09:11→20:13)
[2022-08-31] MEDS ORDERED: SODIUM CHLORIDE 0.9% 1,000 ML IV ONE (10:45)
--- NOTE | 2022-08-31 10:46 | P.PN ---
Subjective This is a pleasant 52 years old female with past medical history of Asthma, COPD, Fibromyalgia, GERD/Reflux, Osteoarthritis diverticulitis, cervica l/uterine cancer, degenerative disk disease, migraines, hhiatal hernia, Current every day smoker Patient presents because of abdominal pain which started last Saturday and he wants to [facility] which is close by her house, she underwent workup including CAT scan of the abdomen and that she has been told she has diverticulitis and sent home with antibiotic however patient kept getting worse, she is getting more tenderness, more abdominal pain more nauseous and she will not She describes her pain as in the left lower quadrant about 10/10 in severity fed like crampy, radiating across the right abdomen. Also associated with vomiting, patient vomited about 5-6 times with no blood. Patient says that she has normal bowel movement over the last 12 days. However very sharp she denies current dizziness or headache, no new weakness or numbness. She denies chest pain dyspnea or coughing. She smokes 1 pack per day and she was counseled to quit and agrees but she declines nicotine patch 104. Alcohol and uses marijuana. She denies neurological, or urinary symptoms, no dysuria urgency. Patient is afebrile and vital signs are stable She has leukocytosis of 16.8, rest of labs including risks of CBC, BMP, liver enzymes and unremarkable. CT of the abdomen and pelvis shows sigmoid colitis with no definitive perforation. There is irregular appearance of the wall immediately downstream compatible with at least partial obstruction with up citrine fecal impaction with outpouching of the fecal material. And colonoscopy is recommended down the stream. Also patient has pancreatic tail cyst (patient told me she is aware about the cyst or mass and she is been being worked up for it) Multiple renal calculi, nonobstructing on the right side Patient received 1.5 L of normal saline, Dilaudid and started on Zosyn. 08/31/2022 Patient looks lethargic lying in bed not in distress fully awake oriented still complaining from abdominal pain and tenderness especially in the left lower quadrant No nausea vomiting but patient could not eat she has low appetite. She has very little bowel movement. Currently she is hemodynamically stable, she has low-grade temperature about 200 this morning And she is currently blood pressure 96/61. Repeat labs from today is pending h Patient currently on Zosyn and normal saline 75 mL/h. We will give bolus 1 L of normal saline, systolic blood pressure previously was 120 or higher,. Review of systems CONSTITUTIONAL: No fever, no malaise, no fatigue. HEENT: No recent visual problems or hearing problems. Denied any sore throat. CARDIOVASCULAR: No orthopnea, PND, no palpitations, no syncope. PULMONARY: No shortness of breath, no cough, no hemoptysis. GASTROINTESTINAL: No diarrhea, no nausea, no vomiting, no abdominal pain. Normo active bowel sounds. NEUROLOGICAL: No headaches, no weakness, no numbness. HEMATOLOGICAL: Denies any bleeding or petechiae. GENITOURINARY: Denies any burning micturition, frequency, or urgency. MUSCULOSKELETAL/RHEUMATOLOGICAL: Denies any joint pain, swelling, or any muscle pain. ENDOCRINE: Denies any polyuria or polydipsia. Active Medications Generic Name Dose Route Start Last Admin Trade Name Freq PRN Reason Stop Dose Admin Famotidine 20 mg 08/30/22 21:00 08/31/22 09:09 Famotidine 20 Mg/2 Ml Vial IV 20 mg Q12HR [facility]IA Administration Heparin Sodium (Porcine) 5,000 unit 08/30/22 21:00 08/31/22 09:11 Heparin Sodium,Porcine/Pf 5,000 Unit/0.5 Ml Syringe SQ 5,000 unit Q12HR [facility]IA Administration Hydromorphone HCl 0.5 mg 08/30/22 11:54 08/31/22 09:11 Hydromorphone 0.5 Mg/0.5 Ml Syringe IVP 0.5 mg Q3HR PRN Administration Moderate Pain (Scale 4 to 6) Piperacillin Sod/Tazobactam 100 mls @ 25 mls/hr 08/30/22 16:00 08/31/22 08:42 Sod 3.375 gm/ Sodium Chloride IVPB 25 mls/hr Q8HR LEIA Administration Protocol Sodium Chloride 1,000 mls @ 75 mls/hr 08/30/22 12:00 08/31/22 07:28 Saline 0.9% IV Not Given .[id number] LEIA Sodium Chloride 1,000 mls @ 999 mls/hr 08/31/22 10:45 Saline 0.9% IV 08/31/22 11:45 .Q1H1M ONE Naloxone HCl 0.2 mg 08/30/22 11:54 Naloxone 0.4 Mg/Ml 1 Ml Vial IV Q2M PRN Opioid Reversal Ondansetron HCl 4 mg 08/30/22 11:54 08/31/22 00:22 Ondansetron 4 Mg/2 Ml Vial IVP 4 mg Q8HR PRN Administration Nausea And Vomiting Objective - Vital Signs Vital signs: Vital Signs Temp 98.1 F 08/31/22 07:16 Pulse 81 08/31/22 07:16 Resp 16 08/31/22 07:16 BP 96/61 08/31/22 07:16 Pulse Ox 92 L 08/31/22 07:16 FiO2 Intake & Output 08/30/22 08/31/22 08/31/22 18:59 06:59 18:59 Intake Total 200 Balance 200 Weight 79.832 kg Intake: Intake, IV Titration 200 Amount Piperacillin-Tazobactam 3 100 .375 gm In Sodium Chloride 0.9% 100 ml @ 200 mls/hr IVPB ONCE [facility] Rx#:[id number] Sodium Chloride 0.9% 1, 100 000 ml @ 75 mls/hr IV . [id number] [facility] Rx#:[id number] Other: # Voids 1 1 # Bowel Movements 1 - Exam GENERAL: The patient is alert and oriented x3, not in any acute distress. Well developed, well nourished. HEENT: Pupils are round and equally reacting to light. EOMI. No scleral icterus. No conjunctival pallor. Normocephalic, atraumatic. No pharyngeal erythema. No thyromegaly. CARDIOVASCULAR: S1 and S2 present. No murmurs, rubs, or gallops. PULMONARY: Chest is clear to auscultation, no wheezing , no crackles. -ABDOMEN: Soft, LL tenderness, no rebound tenderness or guarding, nondistended, normoactive bowel sounds. No palpable organomegaly. MUSCULOSKELETAL: No joint swelling or deformity. EXTREMITIES: No cyanosis, clubbing, or pedal edema. NEUROLOGICAL: Gross neurological examination did not reveal any focal deficits. SKIN: No rashes. no petechiae. - Labs CBC & Chem 7: 08/30/22 10:00 08/30/22 10:00 Labs: Abnormal Lab Results - Last 24 Hours (Table) 08/30/22 Range/Units 10:00 Urine Appearance Cloudy H (Clear) Urine Protein 1+ H (Negative) Urine Ketones 4+ H (Negative) Urine Blood Small H (Negative) Urine Bilirubin 1+ H (Negative) Urine RBC 7 H (0-5) /hpf Ur Squamous Epith Cells 12 H (0-4) /hpf Urine Mucus Many H (None) /hpf Assessment and Plan Assessment: Acute diverticulitis with bowel obstruction, failed outpatient therapy Multiple renal calculi, nonobstructing on the right side A known case of pancreatic mass that has been checked before as per patient, follow-up as an outpatient COPD/asthma With no exacerbation History of fibromyalgia History of GERD History of osteoarthritis History of diverticulitis History of cervical/uterine cancer History of hiatal hernia History of migraine Plan: continue with Zosyn Continue with normal saline 75 mm/h Continue with pain management. Surgery team consult GI team consult Bowel rest Labs and medication were reviewed.. Continue same treatment. Continue with symptomatic treatment. Resume home medication. Monitor labs and vitals. DVT and GI prophylaxis. Further recommendations as per clinical course of the patient DVT prophylaxis: Subcutaneous heparin GI Prophylaxis: Pepcid PT/OT: Pending Prognosis is guarded
[2022-08-31 11:16] LABS: Basophils # (A) 0.03 X 10*3/uL (0.00-0.10); Basophils % (A) 0.2 %; Eosinophils # (A) 0.05 X 10*3/uL (0.04-0.35); Eosinophils % (A) 0.4 %; HGB 11.6 d/dL (12.0-15.0); Lymphocytes # (A) 1.84 X 10*3/uL (0.90-5.00); Lymphocytes % (A) 14.5 %; MCH 33.6 pg (27.0-32.0); MCHC 35.2 d/dL (32.0-37.0); MCV 95.7 FL (80.0-97.0); Mean Platelet Volume 11.1 FL (9.5-12.2); Monocytes # (A) 0.96 X 10*3/uL (0.20-1.00); Monocytes % (A) 7.6 %; NRBC Per 100 WBC 0 X 10*3/uL (0.00-0.01); Neutrophils # (A) 9.73 X 10*3/uL (1.80-7.70); Platelet Count 277 X 10*3/uL (140-440); RBC 3.45 X 10*6/uL (4.10-5.20); RDW 12.5 % (11.5-14.5); WBC 12.65 X 10*3/uL (4.50-10.00)
[2022-08-31 11:29] LABS: ALT 27 U/L (8-44); AST 18 U/L (13-35); Alkaline Phosphatase 90 U/L (41-126); BUN/Creat Ratio 10.86 Ratio (12.00-20.00); Bilirubin, Conjugated <0.20 mg/dL (0.20-0.40); Bilirubin,Unconjugated >0.10 mg/dL (0.20-1.00); Blood Urea Nitrogen 7.6 mg/dL (9.0-27.0); Calcium 8.6 mg/dL (8.7-10.3); Carbon Dioxide 20.8 mmol/L (21.6-31.8); Chloride 106 mmol/L (96-109); Glucose 72 mg/dL (70-110); Sodium 139 mmol/L (135-145); Total Bilirubin 0.3 mg/dL (0.3-1.2)
[2022-08-31 11:52] VITALS: BMI 27.6
--- NOTE | 2022-08-31 12:22 | P.CONS ---
History of Present Illness - Reason for Consult Consult date: 08/31/22 Abdominal pain Requesting physician: Gray E Sheet - Chief Complaint Abdominal pain, constipation - History of Present Illness This is a pleasant 52-year-old female with a history of constipation who states she has not had a bowel movement and 13 days who presented to the emergency department for complaints of abdominal pain. Apparently this past Saturday she had gone to the emergency room at [facility] she had a CT of the abdomen showing evidence of diverticulitis. She has seen Dr. Santo in the past. She had an EGD and colonoscopy in July 2016. Height upper endoscopy with findings of gastritis, only grade a erosive esophagitis, and hiatal hernia. C olonoscopy with findings of internal hemorrhoids, cecal polyp status post polypectomy, acute diverticulitis. The patient states that she lives with her mother and her aunt who have digestive issues and often have to use the bathroom so she states that she gets cut off during her bowel movements because of them needing to have to use the bathroom. Patient is also on oxycodone for chronic pain. She underwent a CT of the abdomen and pelvis with contrast with findings of sigmoid colitis without definitive perforation at this time. Irregular appearance of the wall immediately downstream compatible with at least partial obstruction with upstream fecal impaction with outpouching of fecal material on appearance of CT. After medical management, colonoscopy is recommended if not recently performed to exclude underlying lesions. Pancreatic tail cyst could represent pseudocyst versus pancreatic intraductal papillary mucinous neoplasm finding not seen in 2017 and is increased in size from 2021. Surveillance with MRCP MRI with IV contrast recommended in one year. Left calyceal diverticulum with multiple renal cocci, nonobstructing right renal calculi. Gastroenterology was consulted for abdominal pain. Patient states she has a known history of the pancreatic cyst and follows with gastroenterology [facility] in [place]. They have been monitoring and following. She currently denies any nausea or vomiting, she still has abdominal pain mostly in the left and mid lower abdomen. She is afebrile. Currently on Zosyn. Labs WBC 16.8 hemoglobin 14.6 hematocrit 43 platelet count 343,000 sodium 135 potassium 3.5. 11 creatinine 8 glucose 113 total bilirubin 0.6 0.6 AST 29 ALT 45 alkaline phosphatase 120 lipase 89 Review of Systems REVIEW OF SYSTEMS: CARDIOPULMONARY: No chest pain or shortness of breath. Gastrointestinal: Abdominal pain left lower quadrant and mid abdomen. No nausea or vomiting. No hematemesis, coffee-ground emesis. No rectal bleeding, or melena. Reported constipation with no bowel movement for 13 days. GENITOURINARY: No dysuria or hematuria. MUSCULOSKELETAL: Reports normal range of motion. Joint pain. Chronic pain sy ndrome. SKIN: No rashes. No jaundice. ENDOCRINE: No chills, fevers. No excessive weight gain or loss. No polydipsia or polyuria. PSYCHIATRIC: Unremarkable. NEUROLOGY: No change in mental status. Denies dizziness, headache. ENT: Vision unremarkable. CONSTITUTIONAL: No recent weight loss. No fever, chills, night sweats. Past Medical History Past Medical History: Asthma, Cancer, COPD, Fibromyalgia, GERD/Reflux, Osteoarthritis (OA) Additional Past Medical History / Comment(s): pre-cancerous polyps with removal, diverticulitis, colitis, cervical/uterine cancer, degenerative disk disease,carpal tunnel, migraines, hypotensive, hiatal hernia, Ox at night 2.5 L, hypoglycemia, anemia, kidney stones History of Any Multi-Drug Resistant Organisms: None Reported Past Surgical History: Back Surgery, Cholecystectomy, Hernia Repair, Hysterectomy, Orthopedic Surgery, Tonsillectomy Additional Past Surgical History / Comment(s): R carpel tunnel release, cervical fusion, colonoscopy with cancerous polyps removed.laminectomy c spine fusion. kidney flush 05/24 Past Anesthesia/Blood Transfusion Reactions: Motion Sickness, Postoperative Nausea & Vomiting (PONV) Additional Past Anesthesia/Blood Transfusion Reaction / Comm: severe PONV- Past Psychological History: Anxiety Additional Psychological History / Comment(s): . Smoking Status: Current every day smoker Past Alcohol Use History: Occasional Additional Past Alcohol Use History / Comment(s): Pt states she started smoking at age 9 yrs. 1/2 ppd smoker. Past Drug Use History: None Reported, Marijuana Additional Drug Use History / Comment(s): Pt states she [facility]. not to use 24 hours prior to procedure - Past Family History Mother Family Medical History: Cancer Additional Family Medical History / Comment(s): . Medications and Allergies Home Medications Medication Instructions Recorded Confirmed Type Cyanocobalamin [Vitamin B-12] 1,000 tab PO DAILY 04/12/22 08/30/22 History Montelukast [Singulair] 10 mg PO HS PRN 04/12/22 08/30/22 History Multivitamins, Thera [Multivitamin 1 tab PO DAILY 04/12/22 08/30/22 History (formulary)] OXcarbazepine [Trileptal] 300 mg PO QID 04/12/22 08/30/22 History oxyCODONE HCL [oxyCODONE HCL (IR)] 20 mg PO QID PRN 04/12/22 08/30/22 History Albuterol Inhaler [Ventolin Hfa 2 puff INHALATION RT-Q6H PRN 08/30/22 08/30/22 History Inhaler] Amoxic-Pot Clav 875-125Mg 1 tab PO TID 08/30/22 08/30/22 History [Augmentin 875-125] Ascorbic Acid [Vitamin C] 1,000 mg PO DAILY 08/30/22 08/30/22 History Budesonide/Formoterol Fumarate 2 puff INHALATION RT-BID PRN 08/30/22 08/30/22 History [Symbicort 160-4.5 Mcg Inhaler] Cholecalciferol [Vitamin D3 (25 25 mcg PO DAILY 08/30/22 08/30/22 History Mcg = 1000 Iu)] Fluconazole [Diflucan] 150 mg PO ONCE PRN 08/30/22 08/30/22 History Fluticasone Nasal [place] [Flonase 2 spray EA NOSTRIL BID PRN 08/30/22 08/30/22 History Nasal [place]] Magnesium 250 mg PO DAILY 08/30/22 08/30/22 History Omeprazole 20 mg PO DAILY PRN 08/30/22 08/30/22 History Pravastatin Sodium [Pravachol] 40 mg PO HS 08/30/22 08/30/22 History Allergies Allergy/AdvReac Type Severity Reaction Status Date / Time Sulfa (Sulfonamide Allergy Severe WHOLE BODY Verified 08/30/22 11:35 Antibiotics) HURTS codeine Allergy Vomiting Verified 08/30/22 11:35 morphine Allergy Vomiting Verified 08/30/22 11:35 adhesive tape AdvReac Rash/Hives Verified 08/30/22 11:35 pregabalin [From Lyrica] AdvReac FEELS LIKE Verified 08/30/22 11:35 HEAD IS SHAKING propofol AdvReac Nausea & Verified 08/30/22 11:35 Vomiting Physical Exam Vitals: Vital Signs Temp Pulse Pulse Resp BP BP Pulse Ox 08/31/22 00:00 100.0 F H 87 18 101/70 97 08/30/22 19:05 99.0 F 88 18 109/62 94 L 08/30/22 17:25 98.3 F 85 18 129/77 98 08/30/22 16:38 98.4 F 84 16 99/67 98 08/30/22 15:45 98.0 F 76 19 98/61 97 08/30/22 14:45 97.8 F 78 17 95/50 98 08/30/22 13:25 98.3 F 74 18 97/61 96 08/30/22 12:26 98.5 F 78 17 111/62 96 08/30/22 11:25 98.5 F 86 17 120/73 96 08/30/22 10:19 98.0 F 85 19 119/84 98 08/30/22 09:32 98.4 F 100 18 105/66 100 Intake and Output 08/30/22 08/30/22 08/31/22 14:59 22:59 06:59 Intake Total 200 Balance 200 Intake: Intake, IV Titration 200 Amount Piperacillin-Tazobactam 3 100 .375 gm In Sodium Chloride 0.9% 100 ml @ 200 mls/hr IVPB ONCE [facility] Rx#:[id number] Sodium Chloride 0.9% 1, 100 000 ml @ 75 mls/hr IV . [id number] [facility] Rx#:[id number] Other: # Voids 1 1 # Bowel Movements 1 Weight 79.832 kg 79.832 kg General appearance: The patient is alert, oriented, appears in no acute distress. HET: Head is normocephalic and atraumatic. Conjunctiva pink. Sclera anicteric. Neck: Supple without lymphadenopathy. Trachea midline. Heart: S1 S2. Regular rate and rhythm. Lungs: Clear to auscultation. Abdomen: Soft, left lower quadrant and mid abdomen tenderness, nondistended with bowel sounds. No guarding or rigidity. Skin: No rashes. No jaundice. Extremities: Normal skin color and turgor. No pedal edema. Neurological: No focal deficits. Alert and oriented x3. Results CBC & Chem 7: 08/31/22 05:32 08/31/22 05:32 Labs: Abnormal Lab Results - Last 24 Hours (Table) 08/30/22 08/30/22 08/30/22 Range/Units 10:00 10:00 10:00 WBC 16.8 H (3.8-10.6) k/uL Neutrophils # 14.7 H (1.3-7.7) k/uL Sodium 135 L (137-145) mmol/L Glucose 113 H (74-99) mg/dL ALT 45 H (4-34) U/L Urine Appearance Cloudy H (Clear) Urine Protein 1+ H (Negative) Urine Ketones 4+ H (Negative) Urine Blood Small H (Negative) Urine Bilirubin 1+ H (Negative) Urine RBC 7 H (0-5) /hpf Ur Squamous Epith Cells 12 H (0-4) /hpf Urine Mucus Many H (None) /hpf Abdominal x-ray: report reviewed CT scan - abdomen: report reviewed Assessment and Plan (1) Abdominal pain Narrative/Plan: 52-year-old female with a past medical history including chronic back pain on oxycodone with recent diagnosis of diverticulitis on oral antibiotics and presented to the emergency department with complaints of abdominal pain mostly in the left lower and mid abdomen and constipation for last 13 days. Patient states she's not had a bowel movement in 13 days she has had constipation in the past. She apparently lives with her mother and aunt and is not able to use the bathroom when needed and often has incomplete bowel movements. CT of the ab domen and pelvis shows colitis as well as small partial bowel obstruction. Pancreatic tail cyst possible pseudocyst has been present and patient states that she has been following with gastroenterology in [place]. They have been monitoring and it is actually shrinking. Continue with recommendations from general surgery. Continue IV therapy. Current Visit: No Status: Acute Code(s): R10.9 - UNSPECIFIED ABDOMINAL PAIN SNOMED Code(s): 54898969 (2) Pancreatic cyst Current Visit: Yes Status: Acute Code(s): K86.2 - CYST OF PANCREAS SNOMED Code(s): 50691405 (3) Colitis Current Visit: Yes Status: Acute Code(s): K52.9 - NONINFECTIVE GASTROENTERITIS AND COLITIS, UNSPECIFIED SNOMED Code(s): 03448880 (4) Bowel obstruction Current Visit: Yes Status: Acute Code(s): K56.609 - UNSP INTESTNL OBST, UNSP TO PARTIAL VERSUS COMPLETE OBST SNOMED Code(s): 32560737 (5) Constipation Current Visit: Yes Status: Chronic Code(s): K59.00 - CONSTIPATION, UNSPECIFIED SNOMED Code(s): 19587397 (6) Chronic pain syndrome Current Visit: No Status: Chronic Code(s): G89.4 - CHRONIC PAIN SYNDROME SNOMED Code(s): 643160366 Plan: 1. Continue symptomatic and supportive care 2. Diet per recommendations from general surgery 3. Continue IV antibiotics 4. No further workup for pancreatic pseudocyst, patient establish with draw bench operator and has been following 5. No plans an endoscopic evaluation 6. Continue with recommendations from general surgery Thank you for allowing us to participate in the care of the patient, the GI service will sign off, gastroenterology will not be available at the hospital this weekend. If further evaluation by gastroenterology is required the patient will need transfer as per the primary team's discretion. Dr. Morris Briones I agree with the dictator's note, documented as a scribe by Jennifer Basurto.
--- NOTE | 2022-08-31 14:09 | P.PN ---
Subjective Progress Note Date: 08/31/22 CHIEF COMPLAINT: Abdominal pain HISTORY OF PRESENT ILLNESS: Patient reports that she is feeling better today. Her abdominal pain is less. She still has some pain across the lower abdomen. She did have a small bowel movement and flatus. She denies anymore nausea or vomiting. She is asking about when she can eat. She did have a low-grade temp of 100. WBC is coming down from 16.8-12.6 5H is 11.6 platelets 277 sodium is 139 potassium is 4.0 creatinine 0.7 PHYSICAL EXAM: VITAL SIGNS: Reviewed GENERAL: Well-developed in no acute distress. HEENT: No sclera icterus. Extraocular movements grossly intact. Moist buccal mucosa. Head is atraumatic, normocephalic. Hears conversational speech. No nasal drainage. NECK: Supple without lymphadenopathy. CHEST: Non-labored respirations and equal bilateral excursions. CARDIOVASCULAR: Palpable 2+ radial pulses. ABDOMEN: Soft. Nondistended. Mild tenderness to palpation across the lower abdomen more so on the left lower quadrant. MUSCULOSKELETAL: No clubbing or cyanosis. NEUROLOGIC: No focal or lateralizing signs. Cranial nerves II through XII grossly intact. PSYCH: Appropriate affect. Alert and oriented to person, place and time. SKIN: Well perfused. Good skin turgor. ASSESSMENT: 1. Abdominal pain 2. Sigmoid colitis/diverticulitis 3. Partial obstruction 4. Kidney stones 5. Pancreatic pseudocyst follows with GI service PLAN: -Continue antibiotics for possible diverticulitis -Recommend at least 3 days of IV antibiotics -Continue to monitor white count -Advance diet to clear liquids -Start lactulose 30 g twice a day tomorrow morning and milk of magnesia tomorrow morning one-time dose -Encourage patient to ambulate -Recommend outpatient colonoscopy in October Physician Sql Engineer note has been reviewed by physician. Signing provider agrees with the documented findings, assessment, and plan of care. Objective - Vital Signs Vital signs: Vital Signs Temp 98.1 F 08/31/22 07:16 Pulse 81 08/31/22 07:16 Resp 16 08/31/22 07:16 BP 96/61 08/31/22 07:16 Pulse Ox 92 L 08/31/22 07:16 FiO2 Intake & Output 08/30/22 08/31/22 08/31/22 18:59 06:59 18:59 Intake Total 200 Balance 200 Weight 79.832 kg 79.832 kg Intake: Intake, IV Titration 200 Amount Piperacillin-Tazobactam 3 100 .375 gm In Sodium Chloride 0.9% 100 ml @ 200 mls/hr IVPB ONCE [facility] Rx#:[id number] Sodium Chloride 0.9% 1, 100 000 ml @ 75 mls/hr IV . [id number] [facility] Rx#:[id number] Other: # Voids 1 1 # Bowel Movements 1 - Labs CBC & Chem 7: 08/31/22 05:32 08/31/22 05:32 Labs: Abnormal Lab Results - Last 24 Hours (Table) 08/31/22 08/31/22 Range/Units 05:32 05:32 WBC 12.65 H (4.50-10.00) X 10*3/uL RBC 3.45 L (4.10-5.20) X 10*6/uL Hgb 11.6 L (12.0-15.0) d/dL Hct 33.0 L (37.2-46.3) % MCH 33.6 H (27.0-32.0) pg Neutrophils # 9.73 H (1.80-7.70) X 10*3/uL Carbon Dioxide 20.8 L (21.6-31.8) mmol/L Anion Gap 12.20 H (4.00-12.00) mmol/L BUN 7.6 L (9.0-27.0) mg/dL BUN/Creatinine Ratio 10.86 L (12.00-20.00) Ratio Calcium 8.6 L (8.7-10.3) mg/dL Unconjugated Bilirubin >0.10 L (0.20-1.00) mg/dL Total Protein 5.0 L (6.2-8.2) d/dL Albumin 3.0 L (3.8-4.9) d/dL Albumin/Globulin Ratio 1.50 L (1.60-3.17) Ratio
[2022-08-31] MEDS ORDERED: ALBUTEROL NEBULIZED 2.5 MG/3 ML INHALATION PRN (15:29)
[2022-08-31] MEDS ORDERED: SYMBICORT 160-4.5 MCG INHALER INHALATION PRN (15:29)
[2022-08-31] MEDS: OXcarbazepine 300 MG TAB PO SCH ×2 (17:45→23:25)
[2022-08-31] MEDS: PRAVASTATIN SODIUM 40 MG TAB PO SCH (20:13)
[2022-09-01] MEDS: ONDANSETRON 4 MG/2 ML VIAL IVP PRN ×3 (01:10→18:06)
[2022-09-01 08:22] LABS: African American GFR (CKD) >90 (>60 ml/min/1.73 sqM); Anion Gap 5 mmol/L; Blood Urea Nitrogen 4 mg/dL (7-17); Calcium 8.3 mg/dL (8.4-10.2); Carbon Dioxide 27 mmol/L (22-30); Chloride 106 mmol/L (98-107); Glucose 80 mg/dL (74-99); Non-African American GFR(CKD) >90 (>60 ml/min/1.73 sqM); Potassium 4.1 mmol/L (3.5-5.1); Sodium 138 mmol/L (137-145)
[2022-09-01] MEDS ORDERED: MAGNESIUM HYDROXIDE 2,400 MG/30 ML CUP PO PRN (09:00)
[2022-09-01] MEDS: PIPERACILLIN-TAZOBACTAM 3.375 GM in SODIUM CHLORIDE 0.9% 100 ML IVPB SCH ×2 (09:26→16:24)
[2022-09-01] MEDS: HEPARIN SODIUM,PORCINE/PF 5,000 UNIT/0.5 ML SYRINGE SQ SCH ×2 (09:26→20:51)
[2022-09-01] MEDS: OXcarbazepine 300 MG TAB PO SCH ×4 (09:27→20:51)
[2022-09-01] MEDS: FAMOTIDINE 20 MG/2 ML VIAL IV SCH ×2 (09:27→20:51)
[2022-09-01] MEDS: HYDROmorphone 0.5 MG/0.5 ML SYRINGE IVP PRN ×2 (09:28→18:07)
[2022-09-01 09:31] LABS: Basophils # (A) 0.04 X 10*3/uL (0.00-0.10); Basophils % (A) 0.3 %; Eosinophils # (A) 0.13 X 10*3/uL (0.04-0.35); Eosinophils % (A) 0.9 %; HCT 34.4 % (37.2-46.3); HGB 11.2 d/dL (12.0-15.0); Lymphocytes # (A) 2.33 X 10*3/uL (0.90-5.00); Lymphocytes % (A) 16.6 %; MCH 31.5 pg (27.0-32.0); MCHC 32.6 d/dL (32.0-37.0); MCV 96.6 FL (80.0-97.0); Mean Platelet Volume 10.4 FL (9.5-12.2); Monocytes # (A) 1.15 X 10*3/uL (0.20-1.00); Monocytes % (A) 8.2 %; NRBC Per 100 WBC 0 X 10*3/uL (0.00-0.01); Neutrophils % (A) 73.5 %; Platelet Count 344 X 10*3/uL (140-440); RBC 3.56 X 10*6/uL (4.10-5.20); RDW 12.5 % (11.5-14.5); WBC 14.02 X 10*3/uL (4.50-10.00)
[2022-09-01] MEDS: LACTULOSE 20 GM/30 ML CUP PO SCH ×2 (09:32→20:50)
--- NOTE | 2022-09-01 09:35 | P.PN ---
Subjective Progress Note Date: 09/01/22 Principal diagnosis: Diverticulitis Patient says she feels about the same today. T-max 100.2. Tolerating clear liquids. Small amount of flatus. No bowel movement. White blood cell count 14 from 12. Objective - Vital Signs Vital signs: Vital Signs Temp 100.2 F H 09/01/22 07:14 Pulse 75 09/01/22 07:14 Resp 17 09/01/22 07:14 BP 95/65 09/01/22 07:14 Pulse Ox 92 L 09/01/22 07:14 FiO2 Intake & Output 08/31/22 09/01/22 09/01/22 18:59 06:59 18:59 Intake Total 400 Balance 400 Weight 79.832 kg Intake: Oral 400 Other: # Voids 4 3 # Bowel Movements 1 - Exam Abdomen: Soft, nondistended, mild lower abdominal tenderness, no rebound or guarding - Labs CBC & Chem 7: 09/01/22 05:56 09/01/22 05:56 Labs: Abnormal Lab Results - Last 24 Hours (Table) 08/31/22 08/31/22 09/01/22 Range/Units 05:32 05:32 05:56 WBC 12.65 H 14.02 H (4.50-10.00) X 10*3/uL RBC 3.45 L 3.56 L (4.10-5.20) X 10*6/uL Hgb 11.6 L 11.2 L (12.0-15.0) d/dL Hct 33.0 L 34.4 L (37.2-46.3) % MCH 33.6 H (27.0-32.0) pg Neutrophils # 9.73 H 10.30 H (1.80-7.70) X 10*3/uL Monocytes # 1.15 H (0.20-1.00) X 10*3/uL Carbon Dioxide 20.8 L (21.6-31.8) mmol/L Anion Gap 12.20 H (4.00-12.00) mmol/L BUN 7.6 L (9.0-27.0) mg/dL BUN/Creatinine Ratio 10.86 L (12.00-20.00) Ratio Calcium 8.6 L (8.7-10.3) mg/dL Unconjugated Bilirubin >0.10 L (0.20-1.00) mg/dL Total Protein 5.0 L (6.2-8.2) d/dL Albumin 3.0 L (3.8-4.9) d/dL Albumin/Globulin Ratio 1.50 L (1.60-3.17) Ratio 09/01/22 Range/Units 05:56 WBC (4.50-10.00) X 10*3/uL RBC (4.10-5.20) X 10*6/uL Hgb (12.0-15.0) d/dL Hct (37.2-46.3) % MCH (27.0-32.0) pg Neutrophils # (1.80-7.70) X 10*3/uL Monocytes # (0.20-1.00) X 10*3/uL Carbon Dioxide (21.6-31.8) mmol/L Anion Gap (4.00-12.00) mmol/L BUN 4 L (9.0-27.0) mg/dL BUN/Creatinine Ratio (12.00-20.00) Ratio Calcium 8.3 L (8.7-10.3) mg/dL Unconjugated Bilirubin (0.20-1.00) mg/dL Total Protein (6.2-8.2) d/dL Albumin (3.8-4.9) d/dL Albumin/Globulin Ratio (1.60-3.17) Ratio Microbiology - Last 24 Hours (Table) 08/30/22 12:20 Blood Culture - Preliminary Blood 08/30/22 12:05 Blood Culture - Preliminary Blood Assessment and Plan (1) Diverticulitis Narrative/Plan: 52-year-old female with CAT scan findings of inflammatory changes at the sigmoid colon likely on the basis of diverticulitis. Patient has some constipation proximal to that. Continue clear liquid diet. Ambulate. Stool softeners. Continue antibiotics. Patient will need eventual colonoscopy. Current Visit: Yes Status: Acute Code(s): K57.92 - DVTRCLI OF INTEST, PART UNSP, W/O PERF OR ABSCESS W/O BLEED SNOMED Code(s): 443727466
[2022-09-01] MEDS ORDERED: ACETAMINOPHEN TAB 325 MG TAB PO PRN (10:44)
--- NOTE | 2022-09-01 13:54 | P.PN ---
Subjective This is a pleasant 52 years old female with past medical history of Asthma, COPD, Fibromyalgia, GERD/Reflux, Osteoarthritis diverticulitis, cervica l/uterine cancer, degenerative disk disease, migraines, hhiatal hernia, Current every day smoker Patient presents because of abdominal pain which started last Saturday and he wants to [facility] which is close by her house, she underwent workup including CAT scan of the abdomen and that she has been told she has diverticulitis and sent home with antibiotic however patient kept getting worse, she is getting more tenderness, more abdominal pain more nauseous and she will not She describes her pain as in the left lower quadrant about 10/10 in severity fed like crampy, radiating across the right abdomen. Also associated with vomiting, patient vomited about 5-6 times with no blood. Patient says that she has normal bowel movement over the last 12 days. However very sharp she denies current dizziness or headache, no new weakness or numbness. She denies chest pain dyspnea or coughing. She smokes 1 pack per day and she was counseled to quit and agrees but she declines nicotine patch 104. Alcohol and uses marijuana. She denies neurological, or urinary symptoms, no dysuria urgency. Patient is afebrile and vital signs are stable She has leukocytosis of 16.8, rest of labs including risks of CBC, BMP, liver enzymes and unremarkable. CT of the abdomen and pelvis shows sigmoid colitis with no definitive perforation. There is irregular appearance of the wall immediately downstream compatible with at least partial obstruction with up citrine fecal impaction with outpouching of the fecal material. And colonoscopy is recommended down the stream. Also patient has pancreatic tail cyst (patient told me she is aware about the cyst or mass and she is been being worked up for it) Multiple renal calculi, nonobstructing on the right side Patient received 1.5 L of normal saline, Dilaudid and started on Zosyn. 08/31/2022 Patient looks lethargic lying in bed not in distress fully awake oriented still complaining from abdominal pain and tenderness especially in the left lower quadrant No nausea vomiting but patient could not eat she has low appetite. She has very little bowel movement. Currently she is hemodynamically stable, she has low-grade temperature about 200 this morning And she is currently blood pressure 96/61. Repeat labs from today is pending h Patient currently on Zosyn and normal saline 75 mL/h. We will give bolus 1 L of normal saline, systolic blood pressure previously was 120 or higher,. 09/01/2022 Today patient was started on liquid diet and tolerates that so well. No significant abdominal pain and tenderness, no bowel movement yet. She got severe attack of pain in her left lower quadrant this morning. Blood pressure is still low normal 95/65 inches Normal saline 65 mL/h WHICH is getting Zosyn for her diverticulitis Surgery team and started her on laxative today and the recommend colonoscopy evaluation at a later stage Objective - Vital Signs Vital signs: Vital Signs Temp 100.2 F H 09/01/22 07:14 Pulse 75 09/01/22 07:14 Resp 17 09/01/22 07:14 BP 95/65 09/01/22 07:14 Pulse Ox 92 L 09/01/22 07:14 FiO2 Intake & Output 08/31/22 09/01/22 09/01/22 18:59 06:59 18:59 Intake Total 400 Balance 400 Weight 79.832 kg Intake: Oral 400 Other: Voiding Method Toilet # Voids 4 3 # Bowel Movements 1 - Exam GENERAL: The patient is alert and oriented x3, not in any acute distress. Well developed, well nourished. HEENT: Pupils are round and equally reacting to light. EOMI. No scleral icterus. No conjunctival pallor. Normocephalic, atraumatic. No pharyngeal erythema. No thyromegaly. CARDIOVASCULAR: S1 and S2 present. No murmurs, rubs, or gallops. PULMONARY: Chest is clear to auscultation, no wheezing , no crackles. -ABDOMEN: Soft, LL tenderness, no rebound tenderness or guarding, nondistended, normoactive bowel sounds. No palpable organomegaly. MUSCULOSKELETAL: No joint swelling or deformity. EXTREMITIES: No cyanosis, clubbing, or pedal edema. NEUROLOGICAL: Gross neurological examination did not reveal any focal deficits. SKIN: No rashes. no petechiae. - Labs CBC & Chem 7: 09/01/22 05:56 09/01/22 05:56 Labs: Abnormal Lab Results - Last 24 Hours (Table) 09/01/22 09/01/22 Range/Units 05:56 05:56 WBC 14.02 H (4.50-10.00) X 10*3/uL RBC 3.56 L (4.10-5.20) X 10*6/uL Hgb 11.2 L (12.0-15.0) d/dL Hct 34.4 L (37.2-46.3) % Neutrophils # 10.30 H (1.80-7.70) X 10*3/uL Monocytes # 1.15 H (0.20-1.00) X 10*3/uL BUN 4 L (7-17) mg/dL Calcium 8.3 L (8.4-10.2) mg/dL Microbiology - Last 24 Hours (Table) 08/30/22 12:20 Blood Culture - Preliminary Blood 08/30/22 12:05 Blood Culture - Preliminary Blood Assessment and Plan Assessment: Acute diverticulitis with bowel obstruction, failed outpatient therapy Multiple renal calculi, nonobstructing on the right side A known case of pancreatic mass that has been checked before as per patient, follow-up as an outpatient COPD/asthma With no exacerbation History of fibromyalgia History of GERD History of osteoarthritis History of diverticulitis History of cervical/uterine cancer History of hiatal hernia History of migraine Plan: continue with Zosyn Continue with normal saline 75 mm/h Continue with pain management. Surgery team consult GI team consult Bowel rest, currently on liquid diet Labs and medication were reviewed.. Continue same treatment. Continue with symptomatic treatment. Resume home medication. Monitor labs and vitals. DVT and GI prophylaxis. Further recommendations as per clinical course of the patient DVT prophylaxis: Subcutaneous heparin GI Prophylaxis: Pepcid PT/OT: Pending Prognosis is guarded
[2022-09-01] MEDS: SODIUM CHLORIDE 0.9% 1,000 ML IV SCH (19:44)
[2022-09-01] MEDS: PRAVASTATIN SODIUM 40 MG TAB PO SCH (20:51)
[2022-09-02] MEDS: PIPERACILLIN-TAZOBACTAM 3.375 GM in SODIUM CHLORIDE 0.9% 100 ML IVPB SCH ×3 (00:22→17:09)
[2022-09-02] MEDS: HYDROmorphone 0.5 MG/0.5 ML SYRINGE IVP PRN ×4 (00:22→23:02)
[2022-09-02] MEDS: SODIUM CHLORIDE 0.9% 1,000 ML IV SCH ×2 (06:23→21:04)
[2022-09-02] MEDS: FAMOTIDINE 20 MG/2 ML VIAL IV SCH ×2 (09:27→20:57)
[2022-09-02] MEDS: HEPARIN SODIUM,PORCINE/PF 5,000 UNIT/0.5 ML SYRINGE SQ SCH ×2 (09:27→20:56)
[2022-09-02] MEDS: OXcarbazepine 300 MG TAB PO SCH ×4 (09:28→23:03)
[2022-09-02] MEDS: ONDANSETRON 4 MG/2 ML VIAL IVP PRN (09:28)
[2022-09-02] MEDS: LACTULOSE 20 GM/30 ML CUP PO SCH ×2 (09:28→20:56)
[2022-09-02 09:30] LABS: Basophils # (A) 0.03 X 10*3/uL (0.00-0.10); Basophils % (A) 0.3 %; Eosinophils # (A) 0.16 X 10*3/uL (0.04-0.35); Eosinophils % (A) 1.8 %; HCT 33.3 % (37.2-46.3); HGB 11.2 d/dL (12.0-15.0); Lymphocytes # (A) 2.13 X 10*3/uL (0.90-5.00); Lymphocytes % (A) 23.7 %; MCH 32.3 pg (27.0-32.0); MCHC 33.6 d/dL (32.0-37.0); Mean Platelet Volume 10.8 FL (9.5-12.2); Monocytes # (A) 0.61 X 10*3/uL (0.20-1.00); Monocytes % (A) 6.8 %; NRBC Per 100 WBC 0 X 10*3/uL (0.00-0.01); Neutrophils # (A) 6.01 X 10*3/uL (1.80-7.70); Platelet Count 353 X 10*3/uL (140-440); RBC 3.47 X 10*6/uL (4.10-5.20); RDW 12.5 % (11.5-14.5); WBC 8.98 X 10*3/uL (4.50-10.00)
--- NOTE | 2022-09-02 10:07 | P.PN ---
Subjective Progress Note Date: 09/02/22 Principal diagnosis: Diverticulitis Patient is doing better today. She had multiple bowel movement yesterday. She is quite anxious to go home today now. She is tolerating clear liquids. No nausea or vomiting. White blood cell count back to normal. Objective - Vital Signs Vital signs: Vital Signs Temp 98.1 F 09/02/22 07:40 Pulse 84 09/02/22 07:40 Resp 18 09/02/22 07:40 BP 130/56 09/02/22 07:40 Pulse Ox 98 09/02/22 07:40 FiO2 Intake & Output 09/01/22 09/02/22 09/02/22 18:59 06:59 18:59 Other: Voiding Method Toilet Toilet # Voids 4 3 # Bowel Movements 4 4 - Exam Abdomen: Soft, nontender, nondistended - Labs CBC & Chem 7: 09/02/22 05:46 09/01/22 05:56 Labs: Abnormal Lab Results - Last 24 Hours (Table) 09/02/22 Range/Units 05:46 RBC 3.47 L (4.10-5.20) X 10*6/uL Hgb 11.2 L (12.0-15.0) d/dL Hct 33.3 L (37.2-46.3) % MCH 32.3 H (27.0-32.0) pg Microbiology - Last 24 Hours (Table) 08/30/22 12:20 Blood Culture - Preliminary Blood 08/30/22 12:05 Blood Culture - Preliminary Blood Assessment and Plan (1) Diverticulitis Narrative/Plan: Patient doing better at this time. Continue advancing diet. Stay low fiber for the next week or 2. Follow-up with Dr. Santo. Patient understands the importance of follow-up colonoscopy in this case. Continue antibiotics. Current Visit: Yes Status: Acute Code(s): K57.92 - DVTRCLI OF INTEST, PART UNSP, W/O PERF OR ABSCESS W/O BLEED SNOMED Code(s): 885245373
--- NOTE | 2022-09-02 12:18 | P.PN ---
Subjective This is a pleasant 52 years old female with past medical history of Asthma, COPD, Fibromyalgia, GERD/Reflux, Osteoarthritis diverticulitis, cervica l/uterine cancer, degenerative disk disease, migraines, hhiatal hernia, Current every day smoker Patient presents because of abdominal pain which started last Saturday and he wants to [facility] which is close by her house, she underwent workup including CAT scan of the abdomen and that she has been told she has diverticulitis and sent home with antibiotic however patient kept getting worse, she is getting more tenderness, more abdominal pain more nauseous and she will not She describes her pain as in the left lower quadrant about 10/10 in severity fed like crampy, radiating across the right abdomen. Also associated with vomiting, patient vomited about 5-6 times with no blood. Patient says that she has normal bowel movement over the last 12 days. However very sharp she denies current dizziness or headache, no new weakness or numbness. She denies chest pain dyspnea or coughing. She smokes 1 pack per day and she was counseled to quit and agrees but she declines nicotine patch 104. Alcohol and uses marijuana. She denies neurological, or urinary symptoms, no dysuria urgency. Patient is afebrile and vital signs are stable She has leukocytosis of 16.8, rest of labs including risks of CBC, BMP, liver enzymes and unremarkable. CT of the abdomen and pelvis shows sigmoid colitis with no definitive perforation. There is irregular appearance of the wall immediately downstream compatible with at least partial obstruction with up citrine fecal impaction with outpouching of the fecal material. And colonoscopy is recommended down the stream. Also patient has pancreatic tail cyst (patient told me she is aware about the cyst or mass and she is been being worked up for it) Multiple renal calculi, nonobstructing on the right side Patient received 1.5 L of normal saline, Dilaudid and started on Zosyn. 08/31/2022 Patient looks lethargic lying in bed not in distress fully awake oriented still complaining from abdominal pain and tenderness especially in the left lower quadrant No nausea vomiting but patient could not eat she has low appetite. She has very little bowel movement. Currently she is hemodynamically stable, she has low-grade temperature about 200 this morning And she is currently blood pressure 96/61. Repeat labs from today is pending h Patient currently on Zosyn and normal saline 75 mL/h. We will give bolus 1 L of normal saline, systolic blood pressure previously was 120 or higher,. 09/01/2022 Today patient was started on liquid diet and tolerates that so well. No significant abdominal pain and tenderness, no bowel movement yet. She got severe attack of pain in her left lower quadrant this morning. Blood pressure is still low normal 95/65 inches Normal saline 65 mL/h WHICH is getting Zosyn for her diverticulitis Surgery team and started her on laxative today and the recommend colonoscopy evaluation at a later stage 09/02/2022 Patient abdominal pain is improving, she tolerates liquid diet which can be advanced. 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 Continue with normal saline 75 mL/h Surgical team recommended colonoscopy. Plan discussed with bed side nurse Objective - Vital Signs Vital signs: Vital Signs Temp 98.1 F 09/02/22 07:40 Pulse 84 09/02/22 07:40 Resp 18 09/02/22 07:40 BP 130/56 09/02/22 07:40 Pulse Ox 98 09/02/22 07:40 FiO2 Intake & Output 09/01/22 09/02/22 09/02/22 18:59 06:59 18:59 Other: Voiding Method Toilet Toilet Toilet # Voids 4 3 # Bowel Movements 4 4 - Exam GENERAL: The patient is alert and oriented x3, not in any acute distress. Well developed, well nourished. HEENT: Pupils are round and equally reacting to light. EOMI. No scleral icterus. No conjunctival pallor. Normocephalic, atraumatic. No pharyngeal erythema. No thyromegaly. CARDIOVASCULAR: S1 and S2 present. No murmurs, rubs, or gallops. PULMONARY: Chest is clear to auscultation, no wheezing , no crackles. -ABDOMEN: Soft, LL tenderness, no rebound tenderness or guarding, nondistended, normoactive bowel sounds. No palpable organomegaly. MUSCULOSKELETAL: No joint swelling or deformity. EXTREMITIES: No cyanosis, clubbing, or pedal edema. NEUROLOGICAL: Gross neurological examination did not reveal any focal deficits. SKIN: No rashes. no petechiae. - Labs CBC & Chem 7: 09/02/22 05:46 09/01/22 05:56 Labs: Abnormal Lab Results - Last 24 Hours (Table) 09/02/22 Range/Units 05:46 RBC 3.47 L (4.10-5.20) X 10*6/uL Hgb 11.2 L (12.0-15.0) d/dL Hct 33.3 L (37.2-46.3) % MCH 32.3 H (27.0-32.0) pg Microbiology - Last 24 Hours (Table) 08/30/22 12:20 Blood Culture - Preliminary Blood 08/30/22 12:05 Blood Culture - Preliminary Blood Assessment and Plan Assessment: Acute diverticulitis with bowel obstruction, failed outpatient therapy Multiple renal calculi, nonobstructing on the right side A known case of pancreatic mass that has been checked before as per patient, follow-up as an outpatient COPD/asthma With no exacerbation History of fibromyalgia History of GERD History of osteoarthritis History of diverticulitis History of cervical/uterine cancer History of hiatal hernia History of migraine Plan: continue with Zosyn Continue with normal saline 75 mm/h Continue with pain management. Surgery team consult GI team consult Advance diet as tolerated. Currently on full liquid diet Labs and medication were reviewed.. Continue same treatment. Continue with symptomatic treatment. Resume home medication. Monitor labs and vitals. DVT and GI prophylaxis. Further recommendations as per clinical course of the patient DVT prophylaxis: Subcutaneous heparin GI Prophylaxis: Pepcid Prognosis is guarded
[2022-09-02] MEDS: PRAVASTATIN SODIUM 40 MG TAB PO SCH (20:56)
[2022-09-03] MEDS ORDERED: ONDANSETRON 4 MG TAB PO ONE (00:47)
[2022-09-03] MEDS: PIPERACILLIN-TAZOBACTAM 3.375 GM in SODIUM CHLORIDE 0.9% 100 ML IVPB SCH ×2 (01:03→08:22)
[2022-09-03] MEDS: FAMOTIDINE 20 MG/2 ML VIAL IV SCH (08:23)
[2022-09-03] MEDS ORDERED: ONDANSETRON 4 MG TAB PO PRN (08:32)
[2022-09-03] MEDS: OXcarbazepine 300 MG TAB PO SCH ×2 (08:38→13:51)
[2022-09-03] MEDS: HEPARIN SODIUM,PORCINE/PF 5,000 UNIT/0.5 ML SYRINGE SQ SCH (08:39)
[2022-09-03] MEDS: LACTULOSE 20 GM/30 ML CUP PO SCH (09:48)
--- NOTE | 2022-09-03 10:44 | P.PN ---
Subjective Progress Note Date: 09/03/22 Principal diagnosis: Diverticulitis Patient doing well again today. Her IV did fall out last night. She is tolerating her diet. She is having good bowel function. No pain. Objective - Vital Signs Vital signs: Vital Signs Temp 98.7 F 09/03/22 07:10 Pulse 75 09/03/22 07:10 Resp 18 09/03/22 07:10 BP 111/83 09/03/22 07:10 Pulse Ox 96 09/03/22 07:10 FiO2 Intake & Output 09/02/22 09/03/22 09/03/22 18:59 06:59 18:59 Other: Voiding Method Toilet Toilet # Voids 4 2 - Exam Abdomen: Soft, nontender, nondistended - Labs CBC & Chem 7: 09/02/22 05:46 09/01/22 05:56 Labs: Microbiology - Last 24 Hours (Table) 08/30/22 12:20 Blood Culture - Preliminary Blood 08/30/22 12:05 Blood Culture - Preliminary Blood Assessment and Plan (1) Diverticulitis Narrative/Plan: Patient again doing well today. Continue diet as tolerated. Continue antibiotics. May discharge. Follow-up with Dr. Santo post discharge. Current Visit: Yes Status: Acute Code(s): K57.92 - DVTRCLI OF INTEST, PART UNSP, W/O PERF OR ABSCESS W/O BLEED SNOMED Code(s): 737753094
[2022-09-03] MEDS: SODIUM CHLORIDE 0.9% 1,000 ML IV SCH (11:41)
[2022-09-03 13:58] VITALS: BP 127/85; PULSE 78; RESP 20; TEMP 98.1
--- NOTE | 2022-09-03 19:36 | P.DS ---
Providers Date of admission: 08/30/22 12:58 Expected date of discharge: 09/03/22 Attending physician: Byron Goldberg Consults: 08/30/22 15:51 Consult Physician Routine Consulting Provider: Meli Price Consult Reason/Comments: Diverticulitis and bowel obstruction Do you want consulting provider notified?: Already Contacted Primary care physician: [facility] Course: This is a pleasant 52 years old female with past medical history of Asthma, COPD, Fibromyalgia, GERD/Reflux, Osteoarthritis diverticulitis, cervical/uterine cancer, degenerative disk disease, migraines, hhiatal hernia, Current every day smoker Patient presents because of abdominal pain which started last Saturday and he wants to [facility] which is close by her house, she underwent workup including CAT scan of the abdomen and that she has been told she has diverticulitis and sent home with antibiotic however patient kept getting worse, she is getting more tenderness, more abdominal pain more nauseous and she will not She describes her pain as in the left lower quadrant about 10/10 in severity fed like crampy, radiating across the right abdomen. Also associated with vomiting, patient vomited about 5-6 times with no blood. Patient says that she has normal bowel movement over the last 12 days. However very sharp she denies current dizziness or headache, no new weakness or numbness. She denies chest pain dyspnea or coughing. She smokes 1 pack per day and she was counseled to quit and agrees but she declines nicotine patch 104. Alcohol and uses marijuana. She denies neurological, or urinary symptoms, no dysuria urgency. Patient is afebrile and vital signs are stable She has leukocytosis of 16.8, rest of labs including risks of CBC, BMP, liver enzymes and unremarkable. CT of the abdomen and pelvis shows sigmoid colitis with no definitive perforation. There is irregular appearance of the wall immediately downstream compatible with at least partial obstruction with up citrine fecal impaction with outpouching of the fecal material. And colonoscopy is recommended down the stream. Also patient has pancreatic tail cyst (patient told me she is aware about the cyst or mass and she is been being worked up for it) Multiple renal calculi, nonobstructing on the right side Patient received 1.5 L of normal saline, Dilaudid and started on Zosyn. 08/31/2022 Patient looks lethargic lying in bed not in distress fully awake oriented still complaining from abdominal pain and tenderness especially in the left lower quadrant No nausea vomiting but patient could not eat she has low appetite. She has very little bowel movement. Currently she is hemodynamically stable, she has low-grade temperature about 200 this morning And she is currently blood pressure 96/61. Repeat labs from today is pending h Patient currently on Zosyn and normal saline 75 mL/h. We will give bolus 1 L of normal saline, systolic blood pressure previously was 120 or higher,. 09/01/2022 Today patient was started on liquid diet and tolerates that so well. No significant abdominal pain and tenderness, no bowel movement yet. She got severe attack of pain in her left lower quadrant this morning. Blood pressure is still low normal 95/65 inches Normal saline 65 mL/h WHICH is getting Zosyn for her diverticulitis Surgery team and started her on laxative today and the recommend colonoscopy evaluation at a later stage 09/02/2022 Patient abdominal pain is improving, she tolerates liquid diet which can be advanced. 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 Continue with normal saline 75 mL/h Surgical team recommended colonoscopy. Plan discussed with bed side nurse 09/03/2022: I assumed care of the patient today. Patient seen by Dr. Fernando from general surgery. Cleared. For discharge. P atient to follow-up with Dr. Santo. Patient feeling well. Tolerated her diet. No further abdominal pain. He completed a short course of Augmentin. Diet discussed. Questions answered. Discussion and discharge planning more than 35 minutes On examination: 98.1, 78, 20, 127/85, 98% room air Lungs: Fair entry Abdomen: Soft, nontender Cardiovascular: First seconds are normal Psychiatry A 3, mood affect normal Investigations: CT abdomen pelvis: Sigmoid colitis. Nonobstructing right renal calculi. Left calyceal diverticulum and renal calculi. Pancreas tail abnormal findings.: Assessment and Plan Assessment: Acute sigmoid diverticulitis with bowel obstruction, failed outpatient therapy : Improved Multiple renal calculi, nonobstructing on the right side A known case of pancreatic mass that has been checked before as per patient, follow-up as an outpatient COPD/asthma With no exacerbation fibromyalgia GERD osteoarthritis History of cervical/uterine cancer hiatal hernia History of migraine Plan: Completed short course of Augmentin. Diet is discussed. Follow up with Dr. Santo Plan - Discharge Summary Discharge Rx Participant: Yes New Discharge Prescriptions: Continue OXcarbazepine [Trileptal] 300 mg PO QID Montelukast [Singulair] 10 mg PO HS PRN PRN Reason: ASMTHA/ALLERGIES Multivitamins, Thera [Multivitamin (formulary)] 1 tab PO DAILY Cyanocobalamin [Vitamin B-12] 1,000 tab PO DAILY Albuterol Inhaler [Ventolin Hfa Inhaler] 2 puff INHALATION RT-Q6H PRN PRN Reason: Shortness Of Breath Pravastatin Sodium [Pravachol] 40 mg PO HS oxyCODONE HCL [oxyCODONE HCL (IR)] 20 mg PO QID PRN PRN Reason: Pain Ascorbic Acid [Vitamin C] 1,000 mg PO DAILY Budesonide/Formoterol Fumarate [Symbicort 160-4.5 Mcg Inhaler] 2 puff INHALATION RT-BID PRN PRN Reason: Shortness Of Breath Cholecalciferol [Vitamin D3 (25 Mcg = 1000 Iu)] 25 mcg PO DAILY Fluticasone Nasal [place] [Flonase Nasal [place]] 2 spray EA NOSTRIL BID PRN PRN Reason: Allergy Symptoms Magnesium 250 mg PO DAILY Omeprazole 20 mg PO DAILY PRN PRN Reason: ACID REFLUX Changed Amoxic-Pot Clav 875-125Mg [Augmentin 875-125] 1 tab PO BID #6 Discontinued Fluconazole [Diflucan] 150 mg PO ONCE PRN PRN Reason: YEAST INFECTION Discharge Medication List Cyanocobalamin [Vitamin B-12] 1,000 tab PO DAILY 04/12/22 [History] Montelukast [Singulair] 10 mg PO HS PRN 04/12/22 [History] Multivitamins, Thera [Multivitamin (formulary)] 1 tab PO DAILY 04/12/22 [History] OXcarbazepine [Trileptal] 300 mg PO QID 04/12/22 [History] oxyCODONE HCL [oxyCODONE HCL (IR)] 20 mg PO QID PRN 04/12/22 [History] Albuterol Inhaler [Ventolin Hfa Inhaler] 2 puff INHALATION RT-Q6H PRN 08/30/22 [History] Ascorbic Acid [Vitamin C] 1,000 mg PO DAILY 08/30/22 [History] Budesonide/Formoterol Fumarate [Symbicort 160-4.5 Mcg Inhaler] 2 puff INHALATION RT-BID PRN 08/30/22 [History] Cholecalciferol [Vitamin D3 (25 Mcg = 1000 Iu)] 25 mcg PO DAILY 08/30/22 [His tory] Fluticasone Nasal [place] [Flonase Nasal [place]] 2 spray EA NOSTRIL BID PRN 08/30/22 [History] Magnesium 250 mg PO DAILY 08/30/22 [History] Omeprazole 20 mg PO DAILY PRN 08/30/22 [History] Pravastatin Sodium [Pravachol] 40 mg PO HS 08/30/22 [History] Amoxic-Pot Clav 875-125Mg [Augmentin 875-125] 1 tab PO BID #6 09/03/22 [Rx] Follow up Appointment(s)/Referral(s): Meli Price MD [STAFF PHYSICIAN] - 1 Week (Please notify PCP for referral prior to appointment for follow-up) Ramirez Michael MD [Primary Care Provider] - 1-2 days (Please call office for appointment. Thank you.) Patient Instructions/Handouts: Diverticulitis (DC), Bowel Obstruction (DC) Discharge Disposition: HOME SELF-CARE
== END 2022-09-03 14:00 | disposition home or self-care (01) | DRG 392 ==
LOC: EC 09:31 → 4SSUR 12:58
PROVIDERS: ADMIT Hospitalist; ATTEND Hospitalist
DX: K57.32 Diverticulitis of large intestine without perforation or abscess without bleeding (principal); K56.600 Partial intestinal obstruction, unspecified as to cause; K22.10 Ulcer of esophagus without bleeding; K86.2 Cyst of pancreas; K51.90 Ulcerative colitis, unspecified, without complications; K86.3 Pseudocyst of pancreas; K63.5 Polyp of colon; K64.8 Other hemorrhoids; F17.210 Nicotine dependence, cigarettes, uncomplicated; F41.9 Anxiety disorder, unspecified; G89.4 Chronic pain syndrome; J44.9 Chronic obstructive pulmonary disease, unspecified; K21.9 Gastro-esophageal reflux disease without esophagitis; K29.70 Gastritis, unspecified, without bleeding; K44.9 Diaphragmatic hernia without obstruction or gangrene; K56.41 Fecal impaction; M19.90 Unspecified osteoarthritis, unspecified site; M79.7 Fibromyalgia; N20.0 Calculus of kidney; Z71.6 Tobacco abuse counseling; Z79.51 Long term (current) use of inhaled steroids; Z79.891 Long term (current) use of opiate analgesic; Z79.899 Other long term (current) drug therapy; Z85.42 Personal history of malignant neoplasm of other parts of uterus; Z87.442 Personal history of urinary calculi; Z90.710 Acquired absence of both cervix and uterus; Z98.1 Arthrodesis status
CPT/HCPCS: 36415; 74018; 74177; 80048; 80053; 80076; 81001; 83605; 83690; 85025; 87040; 96361; 96365; 96375; 96376; 99285

== ENCOUNTER 2023-07-04 16:11 | Emergency (ER) | payer MEDICARE, OTHER ==
[2023-07-04 16:39] VITALS: TEMP 97.8
--- NOTE | 2023-07-04 16:47 | ED ---
Abdominal Pain HPI - General Chief Complaint: Abdominal Pain Stated Complaint: abd pain Time Seen by Provider: 07/04/23 16:33 Source: patient, family, RN notes reviewed Mode of arrival: ambulatory Limitations: no limitations - History of Present Illness Initial Comments: This is a 52-year-old female presents emergency department chief complaint of abdominal pain and constipation over the last 2 weeks. Patient states that she had a small bowel movement 2 days ago but has been struggling with constipation over the past 2 weeks. Denies nausea, vomiting, chills, fevers, dysuria, back or flank pain, hematochezia, hememesis. She states that she has developed a food aversion over this time due to feelings of burning and abdominal pain after eating. She has a history of bowel obstructions and blockages. Patient went to her primary care provider today where they recommended she report to the emergency department for further evaluation. Additionally, patient is being worked up for a pancreatic cyst with a MRI scheduled this month. - Related Data Home Medications Medication Instructions Recorded Confirmed Montelukast [Singulair] 10 mg PO HS 04/12/22 07/04/23 OXcarbazepine [Trileptal] 300 mg PO QID 04/12/22 07/04/23 oxyCODONE HCL [oxyCODONE HCL (IR)] 20 mg PO QID 04/12/22 07/04/23 Albuterol Inhaler [Ventolin Hfa 2 puff INHALATION RT-Q4H PRN 08/30/22 07/04/23 Inhaler] Budesonide/Formoterol Fumarate 2 puff INHALATION RT-BID PRN 08/30/22 07/04/23 [Symbicort 160-4.5 Mcg Inhaler] Omeprazole 20 mg PO HS 08/30/22 07/04/23 traZODone HCL [Desyrel] 100 mg PO HS 03/05/23 07/04/23 Amitriptyline HCl [Elavil] 25 mg PO HS 07/04/23 07/04/23 Ergocalciferol [Vitamin D2 (1250 1,250 mcg PO MO 07/04/23 07/04/23 Mcg = 92954 Iu)] Ibuprofen [Motrin] 800 mg PO TID PRN 07/04/23 07/04/23 Naloxone HCl [Narcan] 4 mg NASAL DIRECTED PRN 07/04/23 07/04/23 Rosuvastatin Calcium [Crestor] 40 mg PO HS 07/04/23 07/04/23 Previous Rx's Medication Instructions Recorded Ketorolac [Toradol] 10 mg PO Q8HR #15 tab 07/04/23 Omeprazole [PriLOSEC] 20 mg PO AC-BRKFST #14 cap 07/04/23 Allergies Allergy/AdvReac Type Severity Reaction Status Date / Time Sulfa (Sulfonamide Allergy Severe WHOLE BODY Verified 07/04/23 17:47 Antibiotics) HURTS, "i thought I was going to " codeine Allergy Vomiting, Verified 07/04/23 17:47 "shakes" morphine Allergy Vomiting Verified 07/04/23 17:47 adhesive tape AdvReac Rash/Hives Verified 07/04/23 17:47 pregabalin [From Lyrica] AdvReac FEELS LIKE Verified 07/04/23 17:47 HEAD IS SHAKING propofol AdvReac Nausea & Verified 07/04/23 17:47 Vomiting "whole body hurts" Review of Systems ROS Statement: Those systems with pertinent positive or pertinent negative responses have been documented in the HPI. ROS Other: All systems not noted in ROS Statement are negative. Past Medical History Past Medical History: Asthma, Cancer, COPD, Fibromyalgia, GERD/Reflux, Osteoarthritis (OA), Sleep Apnea/CPAP/BIPAP Additional Past Medical History / Comment(s): pre-cancerous polyps with removal, diverticulitis, colitis, cervical/uterine cancer, degenerative disk disease,carpal tunnel, migraines, hypotensive, hiatal hernia, Ox at night 2.5 L, hypoglycemia, anemia, kidney stones severs sinusitis. pancreatitis History of Any Multi-Drug Resistant Organisms: None Reported Past Surgical History: Back Surgery, Cholecystectomy, Hernia Repair, Hyster ectomy, Orthopedic Surgery, Tonsillectomy Additional Past Surgical History / Comment(s): R carpel tunnel release, cervical fusion, colonoscopy with cancerous polyps removed.laminectomy c spine fusion. kidney flush 05/24 Past Anesthesia/Blood Transfusion Reactions: Motion Sickness, Postoperative Nausea & Vomiting (PONV) Additional Past Anesthesia/Blood Transfusion Reaction / Comment(s): severe PONV- does not do well with propofol. no blood transfusion Past Psychological History: Anxiety Past Alcohol Use History: Occasional Past Drug Use History: None Reported, Marijuana - Past Family History Mother Family Medical History: Cancer General Exam Limitations: no limitations General appearance: alert, in no apparent distress Head exam: Present: atraumatic, normocephalic, normal inspection Eye exam: Present: normal appearance, PERRL, EOMI. Absent: scleral icterus, conjunctival injection, periorbital swelling ENT exam: Present: normal exam, mucous membranes moist Neck exam: Present: normal inspection. Absent: tenderness, meningismus, lymphadenopathy Respiratory exam: Present: normal lung sounds bilaterally. Absent: respiratory distress, wheezes, rales, rhonchi, stridor Cardiovascular Exam: Present: regular rate, normal rhythm, normal heart sounds. Absent: systolic murmur, diastolic murmur, rubs, gallop, clicks GI/Abdominal exam: Present: soft, tenderness. Absent: distended Extremities exam: Present: normal inspection, full ROM, normal capillary refill. Absent: tenderness, pedal edema, joint swelling, calf tenderness Back exam: Present: normal inspection Neurological exam: Present: alert, oriented X3, CN II-XII intact Psychiatric exam: Present: normal affect, normal mood Skin exam: Present: warm, dry, intact, normal color. Absent: rash Course Vital Signs 07/04/23 07/04/23 07/04/23 16:22 18:44 20:00 Temperature 97.8 F Pulse Rate 102 H 64 82 Respiratory 20 16 18 Rate Blood Pressure 110/77 102/68 109/76 O2 Sat by Pulse 97 98 97 Oximetry Medical Decision Making - Medical Decision Making Was pt. sent in by a medical professional or institution (, PA, [employer], urgent care, hospital, or fpc...) When possible be specific @ -No Did you speak to anyone other than the patient for history (EMS, parent, family, police, friend...)? What history was obtained from this source @ -No Did you review nursing and triage notes (agree or disagree)? Why? @ -I reviewed and agree with nursing and triage notes Were old charts reviewed (outside hosp., previous admission, EMS record, old EKG, old radiological studies, urgent care reports/EKG's, fpc records)? Report findings @ -No old charts were reviewed Differential Diagnosis (chest pain, altered mental status, abdominal pain women, abdominal pain men, vaginal bleeding, weakness, fever, dyspnea, syncope, headache, dizziness, GI bleed, back pain, seizure, CVA, palpatations, mental health, musculoskeletal)? @ -Differential Abdominal Pain Women: Appendicitis, Cholecystitis, diverticulosis, ischemic bowel, pancreatitis, hepatitis, UTI, gastroenteritis, AAA, incarcerated hernia, bowel obstruction, constipation, inflammatory bowel, hepatitis, peptic ulcer disease, splenic infarction, perforated viscus, vulvitis, ovarian torsion, PID, kidney stone, placenta abruption, this is not meant to be an all-inclusive list EKG interpreted by me (3pts min.). @ -None X-rays interpreted by me (1pt min.). @ -None done CT interpreted by me (1pt min.). @ -CT of the abdomen pelvis with contrast reveals thickening of the distal stomach and proximal duodenum correlate with gastritis and duodenitis. A 2.5 cm cyst in the tail of the pancreas, nonobstructing bilateral renal calcifications. U/S interpreted by me (1pt. min.). @ -None done What testing was considered but not performed or refused? (CT, X-rays, U/S, labs)? Why? @ -None What meds were considered but not given or refused? Why? @ -Additional pain medications were considered but deferred at this time due to patient with complaints of constipation and the side effects of narcotics causing further constipation. Did you discuss the management of the patient with other professionals (professionals i.e. , PA, [employer], lab, RT, psych nurse, social insurance analyst, broke handler, teacher, food safety officer, case resolution specialist)? Give summary @ -No Was smoking cessation discussed for >3mins.? @ -No Was critical care preformed (if so, how long)? @ -No Were there social determinants of health that impacted care today? How? (Homelessness, low income, unemployed, alcoholism, drug addiction, transportation, low edu. Level, literacy, decrease access to med. care, penitentiary, rehab)? @ -No Was there de-escalation of care discussed even if they declined (Discuss DNR or withdrawal of care, Hospice)? DNR status @ -No What co-morbidities impacted this encounter? (DM, HTN, Smoking, COPD, CAD, Cancer, CVA, ARF, Chemo, Hep., AIDS, mental health diagnosis, sleep apnea, morb id obesity)? @ -Smoking Was patient admitted / discharged? Hospital course, mention meds given and r oute, prescriptions, significant lab abnormalities, going to OR and other pertinent info. @ -Discharge. 52-year-old female with complaint of abdominal pain and constipation. On examination patient noted to have diffuse abdominal tenderness, abdomen is nontender no signs of surgical abdomen. Cardiopulmonary examination unremarkable. Results including CBC, CMP, amylase, lipase, and coag ulation profile no acute findings. Additionally, urinalysis unremarkable for signs of infection. CT of the abdomen nonconcerning for intra-abdominal process such as obstruction or bowel dilation. Patient is aware of pancreatic cyst and has scheduled appointment with her P[facility] for repeat MRI this month. Due to findings on CT patient will be discharged home with a proton pump inhibitor for gastritis. Recommend the patient follows up with her primary care provider within the next 3 days for further evaluation. Patient will also be discharged with Toradol as needed for pain medication. Patient does have narcotics at home for chronic pain recommend that she take stool softeners and fiber supplements Pain medications to minimize the risk of constipation. Patient is agreeable wi th plan. This case was discussed with Dr. Osorio. Undiagnosed new problem with uncertain prognosis? @ -No Drug Therapy requiring intensive monitoring for toxicity (Heparin, Nitro, Insu anabelle, Cardizem)? @ -No Were any procedures done? @ -No Diagnosis/symptom? @ -gastritis, duodenitis, constipation, pancratic cyst Acute, or Chronic, or Acute on Chronic? @ -acute Uncomplicated (without systemic symptoms) or Complicated (systemic symptoms)? @ -uncomplicated Side effects of treatment? @ -No Exacerbation, Progression, or Severe Exacerbation? @ -No Poses a threat to life or bodily function? How? (Chest pain, USA, AR, pneumonia, PE, COPD, DKA, ARF, appy, cholecystitis, CVA, Diverticulitis, Homicidal, Suicidal, threat to staff... and all critical care pts) @ -No - Lab Data Result diagrams: 07/04/23 17:23 07/04/23 18:15 Lab Results 07/04/23 07/04/23 07/04/23 Range/Units 17:23 17:23 17:23 WBC 7.9 (3.8-10.6) k/uL RBC 4.58 (3.80-5.40) m/uL Hgb 14.6 (11.4-16.0) gm/dL Hct 43.8 (34.0-46.0) % MCV 95.5 (80.0-100.0) fL MCH 31.8 (25.0-35.0) pg MCHC 33.3 (31.0-37.0) g/dL RDW 12.9 (11.5-15.5) % Plt Count 282 (150-450) k/uL MPV 7.5 Neutrophils % 62 % Lymphocytes % 30 % Monocytes % 5 % Eosinophils % 2 % Basophils % 1 % Neutrophils # 4.9 (1.3-7.7) k/uL Lymphocytes # 2.3 (1.0-4.8) k/uL Monocytes # 0.4 (0-1.0) k/uL Eosinophils # 0.1 (0-0.7) k/uL Basophils # 0.0 (0-0.2) k/uL PT 10.7 (10.0-12.5) sec INR 1.0 (<1.2) APTT 31.0 H (22.0-30.0) sec Sodium (137-145) mmol/L Potassium (3.5-5.1) mmol/L Chloride (98-107) mmol/L Carbon Dioxide (22-30) mmol/L Anion Gap mmol/L BUN (7-17) mg/dL Creatinine (0.52-1.04) mg/dL Est GFR (CKD-EPI)AfAm (>60 ml/min/1.73 sqM) Est GFR (CKD-EPI)NonAf (>60 ml/min/1.73 sqM) Glucose (74-99) mg/dL Plasma Lactic Acid Mehrdad 0.9 (0.7-2.0) mmol/L Calcium (8.4-10.2) mg/dL Total Bilirubin (0.2-1.3) mg/dL AST (14-36) U/L ALT (4-34) U/L Alkaline Phosphatase (38-126) U/L Total Protein (6.3-8.2) g/dL Albumin (3.5-5.0) g/dL Amylase (30-110) U/L Lipase (23-300) U/L Urine Color Urine Appearance (Clear) Urine pH (5.0-8.0) Ur Specific [place] (1.001-1.035) Urine Protein (Negative) Urine Glucose (UA) (Negative) Urine Ketones (Negative) Urine Blood (Negative) Urine Nitrite (Negative) Urine Bilirubin (Negative) Urine Urobilinogen (<2.0) mg/dL Ur Leukocyte Esterase (Negative) Urine RBC (0-5) /hpf Urine WBC (0-5) /hpf Ur Squamous Epith Cells (0-4) /hpf Urine Mucus (None) /hpf 07/04/23 07/04/23 Range/Units 18:15 19:27 WBC (3.8-10.6) k/uL RBC (3.80-5.40) m/uL Hgb (11.4-16.0) gm/dL Hct (34.0-46.0) % MCV (80.0-100.0) fL MCH (25.0-35.0) pg MCHC (31.0-37.0) g/dL RDW (11.5-15.5) % Plt Count (150-450) k/uL MPV Neutrophils % % Lymphocytes % % Monocytes % % Eosinophils % % Basophils % % Neutrophils # (1.3-7.7) k/uL Lymphocytes # (1.0-4.8) k/uL Monocytes # (0-1.0) k/uL Eosinophils # (0-0.7) k/uL Basophils # (0-0.2) k/uL PT (10.0-12.5) sec INR (<1.2) APTT (22.0-30.0) sec Sodium 136 L (137-145) mmol/L Potassium 4.8 (3.5-5.1) mmol/L Chloride 103 (98-107) mmol/L Carbon Dioxide 27 (22-30) mmol/L Anion Gap 6 mmol/L BUN 14 (7-17) mg/dL Creatinine 0.62 (0.52-1.04) mg/dL Est GFR (CKD-EPI)AfAm >90 (>60 ml/min/1.73 sqM) Est GFR (CKD-EPI)NonAf >90 (>60 ml/min/1.73 sqM) Glucose 89 (74-99) mg/dL Plasma Lactic Acid Mehrdad (0.7-2.0) mmol/L Calcium 9.7 (8.4-10.2) mg/dL Total Bilirubin 0.5 (0.2-1.3) mg/dL AST 24 (14-36) U/L ALT 31 (4-34) U/L Alkaline Phosphatase 135 H (38-126) U/L Total Protein 7.2 (6.3-8.2) g/dL Albumin 4.4 (3.5-5.0) g/dL Amylase 66 (30-110) U/L Lipase 214 (23-300) U/L Urine Color Yellow Urine Appearance Clear (Clear) Urine pH 6.0 (5.0-8.0) Ur Specific [place] 1.034 (1.001-1.035) Urine Protein Trace H (Negative) Urine Glucose (UA) Negative (Negative) Urine Ketones 1+ H (Negative) Urine Blood Trace H (Negative) Urine Nitrite Negative (Negative) Urine Bilirubin Negative (Negative) Urine Urobilinogen <2.0 (<2.0) mg/dL Ur Leukocyte Esterase Negative (Negative) Urine RBC 2 (0-5) /hpf Urine WBC 2 (0-5) /hpf Ur Squamous Epith Cells 5 H (0-4) /hpf Urine Mucus Rare H (None) /hpf Disposition Clinical Impression: Gastritis and duodenitis Narrative: Please return to the Emergency Department if symptoms worsen or any other co ncerns. Disposition: HOME SELF-CARE Condition: Good Instructions (If sedation given, give patient instructions): Gastritis (ED) Prescriptions: Omeprazole [PriLOSEC] 20 mg PO AC-BRKFST #14 cap Ketorolac [Toradol] 10 mg PO Q8HR #15 tab Is patient prescribed a controlled substance at d/c from ED?: No Referrals: Ramirez Michael MD [REFERRING] - 1-2 days Time of Disposition: 20:00
[2023-07-04 17:39] LABS: Basophils % (A) 1 %; Eosinophils # (A) 0.1 k/uL (0-0.7); Eosinophils % (A) 2 %; HCT 43.8 % (34.0-46.0); HGB 14.6 gm/dL (11.4-16.0); Lymphocytes # (A) 2.3 k/uL (1.0-4.8); Lymphocytes % (A) 30 %; MCH 31.8 pg (25.0-35.0); MCHC 33.3 g/dL (31.0-37.0); MCV 95.5 fL (80.0-100.0); Mean Platelet Volume 7.5; Monocytes # (A) 0.4 k/uL (0-1.0); Monocytes % (A) 5 %; Neutrophils # (A) 4.9 k/uL (1.3-7.7); Neutrophils % (A) 62 %; Platelet Count 282 k/uL (150-450); RBC 4.58 m/uL (3.80-5.40); RDW 12.9 % (11.5-15.5); WBC 7.9 k/uL (3.8-10.6)
[2023-07-04 18:03] LABS: Prothrombin Time 10.7 sec (10.0-12.5)
[2023-07-04 18:41] LABS: ALT 31 U/L (4-34); AST 24 U/L (14-36); African American GFR (CKD) >90 (>60 ml/min/1.73 sqM); Albumin 4.4 g/dL (3.5-5.0); Alkaline Phosphatase 135 U/L (38-126); Amylase 66 U/L (30-110); Anion Gap 6 mmol/L; Blood Urea Nitrogen 14 mg/dL (7-17); Calcium 9.7 mg/dL (8.4-10.2); Carbon Dioxide 27 mmol/L (22-30); Chloride 103 mmol/L (98-107); Glucose 89 mg/dL (74-99); Lipase 214 U/L (23-300); Non-African American GFR(CKD) >90 (>60 ml/min/1.73 sqM); Potassium 4.8 mmol/L (3.5-5.1); Sodium 136 mmol/L (137-145); Total Bilirubin 0.5 mg/dL (0.2-1.3); Total Protein 7.2 g/dL (6.3-8.2)
--- NOTE | 2023-07-04 19:40 | CT ---
EXAMINATION TYPE: CT abdomen pelvis w con DATE OF EXAM: 07/04/2023 COMPARISON: 08/30/2022 HISTORY: Epigastric pain. CT DLP: 942.6 mGycm Automated exposure control for dose reduction was used. TECHNIQUE: Helical acquisition of images was performed from the lung bases through the pelvis. CONTRAST: Performed without Oral Contrast and with IV Contrast, patient injected with 100 ml mL of Isovue 300. FINDINGS: The lung bases are clear. There is surgical absence of the gallbladder.. There is no biliary ductal dilatation. There is no focal mass or organomegaly of the liver or spleen. There is a 2.5 cm cyst in the tail the pancreas which has increased in size in the interval since the prior study where it measured approximately 2 cm. Cystic neoplasm is not excluded and MRI of the cruz creas is recommended for further evaluation. There is suggestion of mild thickening of the distal stomach and proximal duodenum raising the questi on of gastritis/duodenitis. There is a stable nonobstructing 7 mm right renal calculus. There is a stable left calyceal diverticulum with numerous 7 to 8mm calcifications Caliber the abdominal aorta is normal and there is no retroperitoneal adenopathy or hemorrhage. The bowel loops are normal in caliber and there is no evidence of dilatation or obstruction. There is no free intraperitoneal air or fluid. No pelvic mass, free fluid, abscess or adenopathy. There are postsurgical changes in the anterior rig ht lower quadrant and upper pelvis presumably for hernia repair. There is surgical absence of the spencer ricardo. The osseous structures and soft tissues are intact. IMPRESSION: 1. Questionable thickening of the distal stomach and proximal duodenum raising the question of gastri tis/ duodenitis. 2. Cyst in the tail the pancreas which is increasing in size. Mucinous neoplasm not excluded and MRI of the increase is recommended. 3. Nonobstructing bilateral renal calcifications as described above. 4. Cholecystectomy and hysterectomy
[2023-07-04 19:48] LABS: Appearance,Urine Clear (Clear); Bilirubin,Urine Negative (Negative); Blood,Urine Trace (Negative); Color,Urine Yellow; Glucose,Urine (UA) Negative (Negative); Ketones,Urine 1+ (Negative); Leukocyte Esterase,Urine Negative (Negative); Mucus,Urine Rare /hpf; Nitrite,Urine Negative (Negative); Protein,Urine Trace (Negative); RBC,Urine 2 /hpf (0-5); Specific Gravity,Urine 1.034 (1.001-1.035); Squamous Epithelial Cell,Urine 5 /hpf (0-4); Urobilinogen,Urine <2.0 mg/dL (<2.0); WBC,Urine 2 /hpf (0-5)
[2023-07-04] MEDS: KETOROLAC 15 MG/ML 1 ML VIAL IVP STA (20:02)
[2023-07-04 20:26] VITALS: BP 109/76; PULSE 82; RESP 18
== END 2023-07-04 20:16 | disposition home or self-care (01) ==
LOC: EC 16:11
DX: K29.70 Gastritis, unspecified, without bleeding (principal); K29.80 Duodenitis without bleeding; K59.00 Constipation, unspecified; K86.2 Cyst of pancreas; F17.200 Nicotine dependence, unspecified, uncomplicated; Z88.2 Allergy status to sulfonamides; Z88.5 Allergy status to narcotic agent; Z88.8 Allergy status to other drugs, medicaments and biological substances; Z88.4 Allergy status to anesthetic agent; Z91.09 Other allergy status, other than to drugs and biological substances
CPT/HCPCS: 36415; 80053; 82150; 83605; 83690; 85025; 85610; 85730; 81001; 74177; 99284; 96374; J1885; Q9967